=== PATIENT | male | born 1945 | race Caucasian/White ===

== ENCOUNTER → 2018-04-25 10:49 | Outpatient (CLI) | payer MEDICARE, OTHER, SELFPAY ==
--- NOTE | 2018-04-25 10:55 | RAD_ITS ---
STUDY: X-RAY - ABDOMEN/PELVIS REASON FOR EXAM: Male, 72 years old. Frequent urination TECHNIQUE: AP supine and upright views of the abdomen and pelvis. COMPARISON: None. FINDINGS: Normal visualized lung bases. There is a moderate amount of colonic fecal material. There is no demonstrated free abdominal air. The visualized liver, spleen and kidneys are grossly normal in size and morphology. Normal soft tissue structures. There are diffuse degenerative changes of the visualized lumbar spine. RAD/Abdomen Single View IMPRESSION: No acute findings, constipation Electronically Signed: Jonathan Philip MD at 12:09 EDT , Service support ,
== END ==
PROVIDERS: Family Provider Nurse Practitioner; PCP Nurse Practitioner; Visit Provider Nurse Practitioner
DX: K59.00 Constipation, unspecified (principal); R35.0 Frequency of micturition
CPT/HCPCS: 74018

== ENCOUNTER → 2018-05-02 13:24 | Outpatient (CLI) | payer MEDICARE, OTHER, SELFPAY ==
--- NOTE | 2018-05-02 13:27 | US_ITS ---
STUDY: SCROTUM ULTRASOUND REASON FOR EXAM: Male, 72 years old. Hydrocele. TECHNIQUE: Ultrasound evaluation of the scrotum was performed with color Doppler and static mayers-scale imaging. COMPARISON: Testicular ultrasound dated April 23, 2017. FINDINGS: RIGHT TESTICLE INTRATESTICULAR: There is a normal size of the right testicle. The right testicle measures 4.7 x 1.9 x 2.6 cm. There is a homogenous echotexture. There is normal arterial and normal venous vascularity. There is a intratesticular cyst which appears anechoic and well-circumscribed. This cyst measures 7.3 x 5.5 x 7.4 mm. EXTRATESTICULAR: The epididymis is normal in size. The epididymis head measures 12 x 7 x 7.6 mm. There is normal vascularity of the epididymis. There is a well-defined cystic structure within the epididymis, without internal echoes, consistent with an epididymal cyst. There is no demonstrated hydrocele. There is no demonstrated varicocele. There is no demonstrated extratesticular mass or cyst. LEFT TESTICLE INTRATESTICULAR: There is a normal size of the left testicle. The left testicle measures 4.3 x 2.0 x 3.0 cm. There is a homogenous echotexture. There is normal arterial and normal venous vascularity. There is no demonstrated left testicular mass or cyst. EXTRATESTICULAR: The epididymis is normal in size. The epididymis head measures 1.0 x 1.2 x 1.2 cm. There is normal vascularity of the epididymis. There is a well-defined cystic structure within the epididymis, without internal echoes, consistent with an epididymal cyst. There is a small hydrocele, some of which appears loculated. There is no demonstrated varicocele. There is no demonstrated extratesticular mass or cyst. US/Testicular with Arterial Flow IMPRESSION: 1. Unchanged appearance to right-sided intratesticular cyst. 2. Small bilateral epididymal cysts on the right with larger epididymal cyst on the left, similar to previous study. 3. Small left-sided hydrocele, possibly partially loculated. Electronically Signed: Anusha Maza MD at 11:17 EDT , Service support ,
== END ==
PROVIDERS: Family Provider Nurse Practitioner; PCP Nurse Practitioner; Visit Provider Nurse Practitioner
DX: N43.2 Other hydrocele (principal); N44.2 Benign cyst of testis; N50.3 Cyst of epididymis; R35.0 Frequency of micturition
CPT/HCPCS: 76870; 93976

== ENCOUNTER → 2019-07-27 | Outpatient (CLI) | payer MEDICARE, OTHER, SELFPAY ==
[2019-07-27 14:18] LABS: PSA,Total- Diagnostic < 0.01 ng/mL (0.0-4.0)
== END | disposition home or self-care (01) ==
LOC: MTLAB 11:46
PROVIDERS: Family Provider Nurse Practitioner; PCP Nurse Practitioner
DX: C61 Malignant neoplasm of prostate (principal)
CPT/HCPCS: 36415; 84153

== ENCOUNTER 2021-12-06 13:09 | Outpatient (CLI) | payer MEDICARE, OTHER, SELFPAY | END 2021-12-06 23:59 | disposition home or self-care (01) | PROVIDERS: PCP Nurse Practitioner; Referring Provider Nurse Practitioner; Visit Provider Nurse Practitioner | DX: R00.2 Palpitations (principal) | CPT/HCPCS: 93225; 93226 ==

== ENCOUNTER → 2022-01-22 | Outpatient (CLI) | payer MEDICARE, OTHER, SELFPAY ==
--- NOTE | 2022-01-22 13:26 | BI_ITS ---
MAMMOGRAPHY - BILATERAL DIAGNOSTIC REASON FOR EXAM: Male, 76 years old. PAIN PERTINENT HISTORY: Non-contributory. TECHNIQUE: Digital examination. Mediolateral oblique (MLO) and craniocaudad (CC) views of both breasts were obtained. CAD: CAD was performed on this study. COMPARISON: None. FINDINGS: Breast Composition: The breasts are almost entirely fatty. There are no dominant masses or suspicious calcifications. No other significant abnormalities are identified. BI/DIAG MAMM W/CAD, BILAT IMPRESSION: Stable bilateral diagnostic mammogram. ASSESSMENT CATEGORY: BIRADS Category 1: Negative. A letter regarding these results will be sent to the patient by the facility within 30 days. FOLLOW UP RECOMMENDATION: Yearly follow up mammogram recommended. (A) Approximately 10% of breast cancers are not detected by mammography. A normal mammogram should not delay biopsy of a clinically suspicious abnormality. Electronically Signed: Abraham Jaimes MD at 13:57 EDT ,
== END | disposition home or self-care (01) ==
LOC: OPBI 13:21
PROVIDERS: PCP Nurse Practitioner; Referring Provider Nurse Practitioner; Visit Provider Nurse Practitioner
DX: N64.4 Mastodynia (principal)
CPT/HCPCS: 77062; 77066; G0279

== ENCOUNTER 2022-08-09 05:09 | Observation (INO) | payer MEDICARE, OTHER, SELFPAY ==
[2022-08-09] VITALS (16 sets, daily range): BP systolic 124–195; BP diastolic 85–103; PULSE 68–76; RESP 11–17; TEMP 36.6–36.8; O2SAT 96–100; BMI 27.3; BMI 26.2
--- NOTE | 2022-08-09 05:24 | CT_ITS ---
EXAM: CT HEAD WITHOUT INTRAVENOUS CONTRAST CLINICAL INDICATION: Neuro deficit, acute, stroke suspected Neuro deficit, acute, stroke suspected TECHNIQUE: Multiple axial images were obtained of the head without intravenous contrast. This CT exam was performed using one or more of the following dose reduction techniques: automated exposure control, adjustment of the mA and/or kV according to patient size, and/or use of iterative reconstruction technique. This report was created using [employer] report generation technology. COMPARISON: None. FINDINGS: BRAIN AND EXTRA-AXIAL SPACES: There are microvascular changes in supratentorial white matter. No intra- or extra-axial hemorrhage. No evidence of acute infarct. No intracranial mass or mass effect. There is preservation of the mayers/white matter interface. Posterior fossa structures are unremarkable. Ventricles are appropriate for age. No hydrocephalus. Basal cisterns are patent. BONES/JOINTS: Unremarkable. No discrete lytic or blastic abnormalities. VASCULATURE: There is atherosclerotic calcification of the vertebral and cavernous carotid arteries. SINUSES: Unremarkable as visualized. Clear. MASTOID AIR CELLS: Unremarkable. Clear. ORBITS: Visualized globes, extraocular muscles, optic nerves and retrobulbar fat appear unremarkable. ASPECTS score: 10. CT/STROKE Brain/Head without Cont IMPRESSION: 1. Mild chronic involutional changes of the brain. 2. No demonstrated acute intracranial process. N.B. : The above Results were Read Back by Jomar Rosenthal MD to Dr. Cornell Alejandra DO, and understanding confirmed on 08/09/2022 05:52:36 (ET). Electronically Signed: Jomar Rosenthal MD at 5:56 EST Reading Location ID and State: [facility] / [place] , Service support ,
--- NOTE | 2022-08-09 05:24 | EKG12_ITS ---
Test Reason : NEURO SYMPTOMS Blood Pressure : / mmHG Vent. Rate : 070 BPM Atrial Rate : 070 BPM P-R Int : 168 ms QRS Dur : 098 ms QT Int : 422 ms P-R-T Axes : 020 -17 000 degrees QTc Int : 455 ms Normal sinus rhythm Normal ECG Confirmed by ONEAL AGUSTIN, RAFA ([id number]), online editor ROSAURA GRUBBS ([id number]) on 08/14/2022 9:34:06 A M Referred By: FITZ Confirmed By:JAZ NO MD
--- NOTE | 2022-08-09 05:26 | EDS_ITS ---
HPI History of Present Illness Chief Complaint: Neuro S/Sx Narrative Narrative: 77-year-old male presenting with concern for strokelike symptoms. He states that at 430 he felt like he was having left-sided facial numbness, left arm numbness, left leg numbness. He states he was able to move these without difficulty. He reports several minutes of not being able to call out to his . He also states that the areas of numbness also had pain and felt needlelike. He states that these symptoms lasted for between 5 to 10 minutes and resolved and had not come back. Patient has no history of stroke. He does have history of Parkinson's disease. History of hypertension, hyperlipidemia. Patient also has a history of dementia. He has MARGARITA and is on CPAP at night. He states he had a cardiac ablation in the past but he is not sure what for. He is not on any anticoagulation except for daily aspirin. [facility] Medical History (Updated 08/09/22 @ 06:[address] Brisa Jin MD) Atrial fibrillation Dementia History of prostate cancer HLD (hyperlipidemia) HTN (hypertension) Parkinson disease Sleep apnea Home Medications aspirin 81 mg tablet,delayed release (Kelly Low Dose Aspirin) 80 mg PO DAILY 08/09/22 [History Last Taken Unknown] carbidopa 25 mg-levodopa 250 mg tablet 1 tab PO TID 08/09/22 [History Last Taken Unknown] furosemide 20 mg tablet 20 mg PO DAILY 08/09/22 [History Last Taken Unknown] losartan 50 mg tablet 50 mg PO DAILY 08/09/22 [History Last Taken Unknown] memantine 10 mg tablet 10 mg PO BID 08/09/22 [History Last Taken Unknown] milk thistle 500 mg capsule 375 mg PO DAILY 08/09/22 [History Last Taken Unknown] multivitamin 1 tab PO DAILY 08/09/22 [History Last Taken Unknown] potassium chloride 20 mEq tablet,extended release 20 meq PO DAILY 08/09/22 [History Last Taken Unknown] simvastatin 20 mg tablet 20 mg PO DAILY 08/09/22 [History Last Taken Unknown] Allergy/AdvReac Type Severity Reaction Status Date / Time No Known Allergies Allergy Verified 08/09/22 05:27 Family History (Updated 08/09/22 @ 06:[address] Brisa Jin MD) Mother Alzheimer disease Surgical History (Updated 08/09/22 @ 06:[address] Brisa Jin MD) H/O cardiac radiofrequency ablation H/O prostatectomy History of ankle surgery History of arthroscopy of both knees History of inguinal hernia repair History of tonsillectomy and adenoidectomy Social History (Updated 08/09/22 @ 06:[address] Brisa Jin MD) household members: spouse Smoking Status: Never smoker alcohol intake: current alcohol intake frequency: a few times a week substance use type: does not use ROS ROS ED Constitutional Constitutional ED: Denies chills or fever(s) Eyes Eyes: Denies change in vision or diplopia ENT ENT ED: Reports other Details: Left jaw pain ; Denies rhinorrhea or sore throat Cardiovascular Cardiovascular: Reports chest pain Respiratory/Chest Respiratory/Chest: Denies cough or dyspnea Genitourinary Genitourinary ED: Denies dysuria Musculoskeletal Musculoskeletal: Denies arthralgias or back pain Integumentary Denies abscess or Abrasions Neurologic Neurologic: Reports paresthesias LUE and LLE Psychiatric Psychiatric: Denies anxiety or depression EXAM Physical Exam Const Vital Signs: 08/09/22 05:11 08/09/22 05:24 08/09/22 05:24 Temperature 97.8 F Temperature Source Temporal Pulse Rate 75 76 Respiratory Rate 17 17 Blood Pressure 194/99 H 187/103 H Blood Pressure Mean 130 131 Pulse Ox 98 99 Oxygen Delivery Method Room Air Room Air Room Air 08/09/22 05:54 Temperature Temperature Source Pulse Rate 71 Respiratory Rate 13 Blood Pressure 163/87 H Blood Pressure Mean 112 Pulse Ox 97 Oxygen Delivery Method Room Air Positive well nourished General Appearance ED: NAD HEENT Reports moist mucous membranes Eyes PERRL and EOMs intact bilaterally Neck no lymphadenopathy Chest Wall inspection of chest normal Resp normal respiratory effort and clear to auscultation bilaterally Effort and Inspection: Negative for retractions Auscultation: Negative for rales, rhonchi or wheezes Cardio Rate: regular rate Rhythm: regular rhythm GI normal to inspection, nondistended, normoactive bowel sounds Neuro oriented x3 and CN's II-XII intact bilaterally Sensorium / Orientation: alert Speech: speech normal Motor Exam: strength 5/5 throughout Psych mental status grossly normal Skin no wounds NIHSS NIHSS Initial: 1a Level of Consciousness: 0 1b LOC Questions (Score 2 if aphasic/stupor): 0 1c LOC Commands (Only score 1st attempt): 0 2 Best Gaze (If aphasic, use reflexive mvmts.): 0 3 Visual: 0 4 Facial Palsy: 0 5 Motor Arm Right (UN = amputation/fusion): 0 5 Motor Arm Left: 0 6 Motor Leg Right: 0 6 Motor Leg Left: 0 7 Limb ataxia (Only + if out of proportion): 0 8 Sensory (Aphasia/stupor=0 or 1, coma=2): 0 9 Best Language: 0 10 Dysarthria (mute, coma=2, intubated=UN): 0 11 Extinction and Inattention (only scored if +): 0 Total Score: 0 MDM MDM MDM Narrative Medical decision making narrative: Patient presenting just under an hour after he had symptoms of inability to speak for several minutes. He also had numbness and tingling the left arm, left face, left leg. He states he was able to move his arm and leg during this time. He reports he was unable to call out to his . No history of stroke. He states he has a history of cardiac ablation. I presume this is from history of A. fib. He was on Coumadin in the past but is no longer anticoagulated. His initial exam he has an NIH of 0. He is awake and alert and moving all 4 extremities. No facial droop. No slurred speech. Slightly hypertensive but otherwise his vitals are stable. CBC essentially normal. Coagulation studies are also normal. Renal function electrolytes unremarkable. High-sensitivity troponin is 10. EKG was obtained and is normal sinus rhythm at a rate of 70 bpm without sign of ischemic change or dysrhythmia mitral rotation. Chest x-ray shows no acute cardiopulmonary process on my interpretation. CT of the brain was ordered due to symptoms of TIA and this is interpreted as negative by the radiologist. I think the patient would benefit from inpatient care given that he had a TIA. I spoke with hospitalist and the patient will be admitted. Impression: 1. TIA 2. History of dementia Lab Data Attestation: I reviewed the patient's lab results. Labs: Laboratory Results - last 24 hr 08/09/22 08/09/22 08/09/22 05:25 05:25 05:25 WBC 5.5 RBC 4.57 L Hgb 13.7 Hct 44.3 MCV 96.9 H MCH 30.0 MCHC 30.9 L RDW Std Deviation 49.1 H RDW Coeff of Jessica 13.6 Plt Count 184 MPV 10.3 Immature Gran % (Auto) 0.400 Neut % (Auto) 55.9 Lymph % (Auto) 30.0 Teller % (Auto) 9.9 Eos % (Auto) 2.9 Baso % (Auto) 0.9 Absolute Neuts (auto) 3.1 Absolute Lymphs (auto) 1.66 Nucleated RBC % 0 PT 14.2 INR 1.1 APTT 29.2 Sodium 141 Potassium 4.3 Chloride 106 Carbon Dioxide 31.0 Anion Gap 4 L BUN 22 H Creatinine 1.04 Estim Creat Clear Calc 57.55 Est GFR (MDRD) Af Amer 89 Est GFR (MDRD) Non-Af 74 BUN/Creatinine Ratio 21.2 H Glucose 105 Calcium 8.8 Magnesium Troponin I High Sens 10 POC Glucose 08/09/22 08/09/22 05:25 05:33 WBC RBC Hgb Hct MCV MCH MCHC RDW Std Deviation RDW Coeff of Jessica Plt Count MPV Immature Gran % (Auto) Neut % (Auto) Lymph % (Auto) Teller % (Auto) Eos % (Auto) Baso % (Auto) Absolute Neuts (auto) Absolute Lymphs (auto) Nucleated RBC % PT INR APTT Sodium Potassium Chloride Carbon Dioxide Anion Gap BUN Creatinine Estim Creat Clear Calc Est GFR (MDRD) Af Amer Est GFR (MDRD) Non-Af BUN/Creatinine Ratio Glucose Calcium Magnesium 2.2 Troponin I High Sens POC Glucose 80 Radiography Diagnostic Testing: Clinical Impression(s) from Imaging Studies Brain CT 08/09/22 05:24 IMPRESSION: 1. Mild chronic involutional changes of the brain. 2. No demonstrated acute intracranial process. N.B. : The above Results were Read Back by Jomar Rosenthal MD to Dr. Cornell Alejandra DO, and understanding confirmed on 08/09/2022 05:52:36 (ET). Electronically Signed: Jomar Rosenthal MD at 5:56 EST , ADDENDUM: 08/09/22 0603 IMPRESSION: 1. Mild chronic involutional changes of the brain. 2. No demonstrated acute intracranial process. N.B. : The above Results were Read Back by Jomar Rosenthal MD to Dr. Cornell Alejandra DO, and understanding confirmed on 08/09/2022 05:52:36 (ET). Electronically Signed: Jomar Rosenthal MD at 5:56 EST , Chest X-Ray 08/09/22 05:45 IMPRESSION: No acute findings in the chest. Electronically Signed: Jomar Rosenthal MD at 6:09 EST , Discharge Plan Triage Chief Complaint: Neuro S/Sx ED Provider: Cornell Alejandra Dx/Rx/DC Orders Primary Care Provider: Lydia Gibbons
[2022-08-09 05:40] LABS: Absolute Lymphocyte Count 1.66 X10^3/uL (0.83-4.51); Absolute Neutrophil Count 3.1 X10^3/uL (2.0-7.7); Basophil# 0.05 X10^3/uL; Basophil% 0.9 % (0-1); Eosinophil# 0.16 X10^3/uL; Eosinophils% 2.9 % (0-5); Hematocrit 44.3 % (40-54); Hemoglobin 13.7 g/dL (13.0-16.5); Lymphocyte # 1.66 X10^3/ul (0.83-4.51); Mean Corp Hgb Conc 30.9 g/dL (32-36); Mean Corpuscular Volume 96.9 fL (80-94); Mean Platelet Vol. 10.3 fl (6.2-12.0); Monocyte# 0.55 X10^3/uL; Monocyte% 9.9 % (0-10); NRBC Flagged by Analyzer 0 % (0-5); Neutrophil % 55.9 % (47-70); Platelet Count 184 K/mm3 (150-450); RBC Distribution Width CV 13.6 % (11.6-14.6); RBC Distribution Width SD 49.1 fl (35.1-43.9); Red Blood Count 4.57 M/mm3 (4.6-6.2); White Blood Count 5.5 K/mm3 (4.4-11.0)
--- NOTE | 2022-08-09 05:45 | RAD_ITS ---
EXAM: XR CHEST, 1 VIEW CLINICAL INDICATION: Neuro deficit, acute, stroke suspected Neuro deficit, acute, stroke suspected TECHNIQUE: Frontal view of the chest. This report was created using [employer] report generation technology. COMPARISON: 04/21/2013. FINDINGS: LUNGS AND PLEURAL SPACES: Unremarkable. No consolidation or edema. No pneumothorax. No effusion. HEART: Unremarkable. Cardiac silhouette not enlarged. MEDIASTINUM: Central airways and mediastinal contour are unremarkable. BONES/JOINTS: There are multilevel degenerative changes in the visualized spine. SOFT TISSUES: Unremarkable. RAD/Chest 1 View IMPRESSION: No acute findings in the chest. Electronically Signed: Jomar Rosenthal MD at 6:09 EST Reading Location ID and State: [facility] / [place] , Service support ,
[2022-08-09 05:51] LABS: Bedside Glucose 80 mg/dL (74-106)
[2022-08-09 06:05] LABS: International Normalized Ratio 1.1; Prothrombin Time (Protime)PT. 14.2 SECONDS (11.7-14.9)
[2022-08-09 06:06] LABS: Partial Thromboplast Time 29.2 Seconds (24.1-36.2)
[2022-08-09 06:08] LABS: Anion Gap 4 (5-15); BUN 22 mg/dL (7-18); BUN/Creat Ratio 21.2 RATIO (10-20); Calcium,Total 8.8 mg/dL (8.5-10.1); Chloride 106 mmol/L (98-107); Creatinine, Serum 1.04 mg/dL (0.70-1.30); EST Glomerular Filtration Rate 74 mL/min (>60); Est Glom Filt Rate - Afr Amer 89 mL/min (>60); Estimated Creatinine Clearance 57.55 ml/min; Glucose 105 mg/dL (74-106); Potassium 4.3 mmol/L (3.5-5.1); Sodium Level 141 mmol/L (136-145); Troponin-I HS 10 pg/mL (3.0-78.0)
--- NOTE | 2022-08-09 06:10 | PCM.HP.STD ---
HPI - General General Date of Admission: 08/09/22 Date of Service: 08/09/22 Chief Complaint: Transient paresthesias L side, aphasia HPI Narrative The patient is a 77 y/o M w/ PMHx: Hx Prostate CA, Parkison's disease with associated Dementia with unclear behavioral disturbance history, PAF s/p RFA, HTN, HLD, MARGARITA who presents to the [facility] ED on 08/09/22 with history of onset left-sided paresthesias including left facial, left upper extremity and left lower extremity at approximately starting at 4:15 AM with significant aphasia with difficulty speaking taking him some time to wake up his prompting ED transition however upon ED transition he notes improvement but still has ongoing left-sided weakness. He describes the left-sided paresthesias as needlelike painful sensations. This lasted for approximately 5 to 10 minutes and resolved with no recurrent symptoms. He does additionally report worsening dizziness over the last several days with increased postnasal drip and congestion. Patient is vaccinated against COVID. In the ED NIHSS 0. Work-up in the ED included T97.8, heart rate 75, BP 194/99, respiratory rate 17, 98% on room air, CBC with WC 5.5, hemoglobin 13.7, platelet 194 without marked shift, coags unremarkable, BMP not marked appearing aside mildly elevated BUN 22/creatinine 104, troponin 10, CT head with mild chronic involutional changes with no acute intracranial process, CXR with no acute cardiopulmonary findings, EKG with SR without acute evidence of ischemia. [facility] [place] Medical History (Updated 08/09/22 @ 06:[address] Brisa Jin MD) Atrial fibrillation Dementia History of prostate cancer HLD (hyperlipidemia) HTN (hypertension) Parkinson disease Sleep apnea Home Medications aspirin 81 mg tablet,delayed release (Kelly Low Dose Aspirin) 80 mg PO DAILY 08/09/22 [History Last Taken Unknown] carbidopa 25 mg-levodopa 250 mg tablet 1 tab PO TID 08/09/22 [History Last Taken Unknown] furosemide 20 mg tablet 20 mg PO DAILY 08/09/22 [History Last Taken Unknown] losartan 50 mg tablet 50 mg PO DAILY 08/09/22 [History Last Taken Unknown] memantine 10 mg tablet 10 mg PO BID 08/09/22 [History Last Taken Unknown] milk thistle 500 mg capsule 375 mg PO DAILY 08/09/22 [History Last Taken Unknown] multivitamin 1 tab PO DAILY 08/09/22 [History Last Taken Unknown] potassium chloride 20 mEq tablet,extended release 20 meq PO DAILY 08/09/22 [History Last Taken Unknown] simvastatin 20 mg tablet 20 mg PO DAILY 08/09/22 [History Last Taken Unknown] Allergy/AdvReac Type Severity Reaction Status Date / Time No Known Allergies Allergy Verified 08/09/22 05:27 Family History (Updated 08/09/22 @ 06:[address] Brisa Jin MD) Mother Alzheimer disease Family History other other (Denies any marked paternal family history including DM, CA, HD.) Surgical History (Updated 08/09/22 @ 06:[address] Brisa Jin MD) H/O cardiac radiofrequency ablation H/O prostatectomy History of ankle surgery History of arthroscopy of both knees History of inguinal hernia repair History of tonsillectomy and adenoidectomy Social History (Updated 08/09/22 @ 06:[address] Brisa Jin MD) household members: spouse Smoking Status: Never smoker alcohol intake: current alcohol intake frequency: a few times a week substance use type: does not use ROS ROS Narrative Admission Review of Systems: CONSTITUTIONAL: No weight loss, fever, chills, + weakness or fatigue. HEENT: Eyes: No visual loss, blurred vision, double vision or yellow sclerae. Ears, Nose, Throat: No hearing loss, sneezing, congestion, runny nose or sore throat. SKIN: No rash or itching, lesions, wounds. CARDIOVASCULAR: + Dizziness. No chest pain, chest pressure or chest discomfort, palpitations, edema, orthopnea, syncopal events. RESPIRATORY: No shortness of breath, cough or sputum, wheezing, hemoptysis. GASTROINTESTINAL: No anorexia, nausea, vomiting or diarrhea, abdominal pain, melena, BRBPR. GENITOURINARY: No dysuria, frequency, urgency or retention. NEUROLOGICAL: + Aphasia, L paresthesias, underlying Parkinson's disease w/ tremors/gait disturbance, underlying concurrent dementia. No headache, dizziness, syncope, paralysis, ataxia, no focal weakness, change in bowel or bladder control, seizure. MUSCULOSKELETAL: + muscle, back pain, joint pain or stiffness. HEMATOLOGIC: No anemia, bleeding or bruising. LYMPHATICS: No enlarged nodes. No history of splenectomy. PSYCHIATRIC: No history of depression or anxiety. ENDOCRINOLOGIC: No reports of sweating, cold or heat intolerance. No polyuria or polydipsia. ALLERGIES: No history of asthma, hives, eczema or rhinitis. Vital Signs Vital Signs Vital Signs: 08/09/22 05:11 08/09/22 05:24 08/09/22 05:24 Temperature 97.8 F Temperature Source Temporal Pulse Rate 75 76 Respiratory Rate 17 17 Blood Pressure 194/99 H 187/103 H Blood Pressure Mean 130 131 Pulse Ox 98 99 Oxygen Delivery Method Room Air Room Air Room Air Weight Weight: 179 lb 7.3 oz Body Mass Index (BMI) 27.3 Physical Exam Narrative Physical Examination: General: Awake, alert, oriented x 3 and cooperative, seated upright in the ED bed, fatigued, continued complete resolution of prior neurological symptoms Skin: Normal color, normal turgor, no icterus, no cyanosis except occasional staged ecchymoses. HEENT: AT/NC, EOMI, PERRLA, mildly dry MM, no carotid bruits or JVD noted. Lungs: Mildly diminished, greater bases, poor effort, no rales, ronchi or wheezing. Heart: Regular rate and rhythm; no gallop, rub audible. Abdomen: Soft, NTTP, ND, distant normal BS, no HSM. Extremities: No cyanosis, no clubbing, bilateral ankle to distal chandra not markedly pitting edema. Neurological: Patient awake, alert, oriented as noted, cognitive function improved, appears baseline intact although patient does of note have underlying dementia associated with Parkinson's disease; pupils equally reactive to light and accommodation, cranial nerves II-XII grossly normal, moving all 4 extremities, no focal deficits, ongoing upper extremity chronic bilateral tremors present with underlying Parkinson's disease, finger-nose and [id number] appropriate despite tremor, negative Babinski, sensation currently intact, strength moderately global decrease secondary to underlying comorbidities but no focal deficit. Psychiatric: Affect appears fatigued otherwise normal, no acute evidence of depressive or anxiety feelings. Results Lab / Micro Data Result Diagrams: 08/09/22 05:25 08/09/22 05:25 Labs: Laboratory Results - last 24 hr 08/09/22 05:25: WBC 5.5, RBC 4.57 L, Hgb 13.7, Hct 44.3, MCV 96.9 H, MCH 30.0, MCHC 30.9 L, RDW Std Deviation 49.1 H, RDW Coeff of Jessica 13.6, Plt Count 184, MPV 10.3, Immature Gran % (Auto) 0.400, Neut % (Auto) 55.9, Lymph % (Auto) 30.0, [place] % (Auto) 9.9, Eos % (Auto) 2.9, Baso % (Auto) 0.9, Absolute Neuts (auto) 3.1, Absolute Lymphs (auto) 1.66, Nucleated RBC % 0 08/09/22 05:25: PT 14.2, INR 1.1, APTT 29.2 08/09/22 05:25: Sodium 141, Potassium 4.3, Chloride 106, Carbon Dioxide 31.0, Anion Gap 4 L, BUN 22 H, Creatinine 1.04, Estim Creat Clear Calc 57.55, Est GFR (MDRD) Af Amer 89, Est GFR (MDRD) Non-Af 74, BUN/Creatinine Ratio 21.2 H, Glucose 105, Calcium 8.8, Troponin I High Sens 10 08/09/22 05:33: POC Glucose [address] 08/09/22 05:24 IMPRESSION: 1. Mild chronic involutional changes of the brain. 2. No demonstrated acute intracranial process. N.B. : The above Results were Read Back by Jomar Rosenthal MD to Dr. Cornell Alejandra DO, and understanding confirmed on 08/09/2022 05:52:36 (ET). Electronically Signed: Jomar Rosenthal MD at 5:56 EST , ADDENDUM: 08/09/22 0603 IMPRESSION: 1. Mild chronic involutional changes of the brain. 2. No demonstrated acute intracranial process. N.B. : The above Results were Read Back by Jomar Rosenthal MD to Dr. Cornell Alejandra DO, and understanding confirmed on 08/09/2022 05:52:36 (ET). Electronically Signed: Jomar Rosenthal MD at 5:56 EST , Chest X-Ray 08/09/22 05:45 IMPRESSION: No acute findings in the chest. Electronically Signed: Jomar Rosenthal MD at 6:09 EST Reading Location ID and State: [facility] / [place] , Service support , Assessment & Plan Assessment/Plan (1) TIA (transient ischemic attack): PLAN: Plan The patient is a 77 y/o M w/ PMHx: Hx Prostate CA,Parkison's disease with associated Dementia with unclear behavioral disturbance history, PAF s/p RFA, HTN, HLD, MARGARITA who presents to the [facility] ED on 08/09/22 with history of onset left-sided paresthesias including left facial, left upper extremity and left lower extremity at approximately starting at 4:15 AM with significant aphasia with difficulty speaking taking him some time to wake up his prompting ED transition. #1. Left-sided paresthesias, aphasia concerning for TIA/CVA: Will admit to PCU, will obtain MRI Brain, will obtain CTA head and neck as well as ECHO, PT/OT/Speech/Nutrition evaluation per protocol. Will allow permissive HTN, maintain on asa, statin w/ AM FLP, fall and aspiration precautions, hemoglobin A1c, magnesium, TSH, FLP pending. Once imaging and further work-up has been obtained we will consider re-evaluation for neurology. Given concurrent incidental dizziness complaints as well as congestion will request COVID PCR and will obtain orthostatic vital signs to be cautious. #2. Parkinson's disease with associated dementia with unclear behavioral disturbance history: We will maintain on fall and aspiration precautions, continue patient home Sinemet regimen as well as memantine. #3. Hypertension: We will maintain permissive hypertension given acute presentation as noted #1, as needed agents per stroke protocol. #4. Hyperlipidemia: Continue home statin regimen. AM FLP. #5. PFA: Patient status post prior RFA, not on rate or rhythm agent nor anticoagulation but previously he was on coumadin. #6. MARGARITA: CPAP nightly. #7. History of prostate cancer: Status post prostatectomy, remote, considered in remission. #8. DVT prophylaxis: SCDs, Lovenox. #9. CODE status: Patient HCPOA is his who is present and living will is currently in place. Discussed CODE status at length including difference between FULL code, DNR-CCA and DNR-CC status. Following discussions about the differences in these status, requested Full Code but notes that once his dementia advances he will likely transition to DNR-CCA, no intubation at that time. Advanced Care Planning Face to Face Time: 16 minutes. Charges/Coding Visit Charges Inpatient E&M: 34463 Init Hosp L3 Procedures Hospitalists Procedures: 82402 Advncd Care Plan 30 Min
--- NOTE | 2022-08-09 06:15 | CT_ITS ---
We are attempting to reach an attending provider to discuss findings. An addendum with communication details will be sent when the communication is complete. EXAM: CT ANGIOGRAPHY HEAD AND NECK WITH INTRAVENOUS CONTRAST CLINICAL INDICATION: Neuro deficit, acute, stroke suspected Neuro deficit, acute, stroke suspected TECHNIQUE: [place]/head and neck CT angiography protocol performed with intravenous contrast. This CT exam was performed using one or more of the following dose reduction techniques: automated exposure control, adjustment of the mA and/or kV according to patient size, and/or use of iterative reconstruction technique. This report was created using [employer] report generation technology. MIP reconstructed images were created and reviewed. CONTRAST: IV 100mL Isovue-370 RADIATION DOSE: CTDIvol = 21.36 mGy, DLP = 653.93 mGy-cm COMPARISON: Noncontrast CT scan of the brain done today. FINDINGS: HEAD: RIGHT ANTERIOR CEREBRAL ARTERY: Unremarkable. No significant stenosis at the visualized segments. Anterior communicating artery is present. No aneurysm. RIGHT MIDDLE CEREBRAL ARTERY: Unremarkable. No significant stenosis at the visualized segments. No aneurysm. RIGHT POSTERIOR CEREBRAL ARTERY: Unremarkable. No occlusion or significant stenosis. No aneurysm. RIGHT INTRACRANIAL INTERNAL CAROTID ARTERY: Atherosclerotic calcification of the cavernous carotid artery. No significant stenosis. No dissection or occlusion. RIGHT INTRACRANIAL VERTEBRAL ARTERY: Unremarkable. No significant stenosis. No dissection or occlusion. LEFT ANTERIOR CEREBRAL ARTERY: Unremarkable. No significant stenosis at the visualized segments. No aneurysm. LEFT MIDDLE CEREBRAL ARTERY: Unremarkable. No significant stenosis at the visualized segments. No aneurysm. LEFT POSTERIOR CEREBRAL ARTERY: Hypoplastic P1 segment, on a developmental basis. The P2 segment is largely supplied by the left posterior communicating artery.. No occlusion or significant stenosis. No aneurysm. LEFT INTRACRANIAL INTERNAL CAROTID ARTERY: Atherosclerotic calcification of the cavernous carotid artery. No significant stenosis. No dissection or occlusion. LEFT INTRACRANIAL VERTEBRAL ARTERY: Relatively diminutive, on a development basis. This does not visibly supply the basilar artery.. No significant stenosis. No dissection or occlusion. BASILAR ARTERY: Unremarkable. No significant stenosis. No aneurysm. OTHER VASCULATURE: No vascular malformation. NECK: RIGHT COMMON CAROTID ARTERY: Unremarkable. No significant stenosis. No dissection or occlusion. RIGHT EXTRACRANIAL INTERNAL CAROTID ARTERY: Unremarkable. No significant stenosis. No dissection or occlusion. RIGHT EXTERNAL CAROTID ARTERY: Unremarkable. No occlusion. RIGHT EXTRACRANIAL VERTEBRAL ARTERY: Relatively diminutive, on a developmental basis. There is focal severe stenosis at the C1 level, however, given that this is a diminutive artery and primary intracranial supply is via the dominant left vertebral artery, the finding is of doubtful clinical significance. No dissection or occlusion. LEFT COMMON CAROTID ARTERY: Unremarkable. No significant stenosis. No dissection or occlusion. LEFT EXTRACRANIAL INTERNAL CAROTID ARTERY: Unremarkable. No significant stenosis. No dissection or occlusion. LEFT EXTERNAL CAROTID ARTERY: Unremarkable. No occlusion. LEFT EXTRACRANIAL VERTEBRAL ARTERY: Unremarkable. No significant stenosis. No dissection or occlusion. GREAT VESSELS OF AORTIC ARCH: Unremarkable as visualized. Normal anatomy, patent. LUNG APICES: Unremarkable as visualized. HEAD and NECK: BONES/JOINTS: Unremarkable. No discrete lytic or blastic abnormalities. SOFT TISSUES: Unremarkable. CAROTID STENOSIS REFERENCE USING NASCET CRITERIA: % ICA stenosis = (1 - narrowest ICA diameter/diameter of distal cervical ICA) x 100. Mild - <50% stenosis. Moderate - 50-69% stenosis. Severe - 70-94% stenosis. Near occlusion - 95-99% stenosis. Occluded - 100% stenosis. CT/STROKE CTA Head AND Neck W/Con IMPRESSION: 1. Relatively hypoplastic right vertebral artery, on a developmental basis. 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 2. Hypoplastic P1 segment of the left posterior cerebral artery. P2 segment is adequately supplied by posterior communicating artery. 3. No other evidence for hemodynamically significant arterial stenosis. No demonstrated large vessel occlusion, dissection, or aneurysm. Electronically Signed: Jomar Rosenthal MD at 7:09 EST ,
[2022-08-09 07:01] LABS: Magnesium 2.2 mg/dL (1.6-2.6)
--- NOTE | 2022-08-09 07:52 | MRI_ITS ---
HISTORY: CVA. Left facial, arm and leg weakness/numbness. TECHNIQUE: Multiplanar and multisequence MR images of the brain were obtained without contrast. COMPARISON: CT same day. FINDINGS: BRAIN PARENCHYMA: Mild foci of small zones of increased T2 FLAIR signal in the bilateral cerebral white matter. No abnormal focus of restricted diffusion. No acute intracranial hemorrhage identified. CSF SPACES: Cerebral ventricles, cortical sulci, and other extra-axial CSF spaces within normal limits in size for age. No significant midline shift or other mass effect.No extra-axial fluid collection. VASCULAR SYSTEM: Major intracranial flow voids are maintained. PARANASAL SINUSES AND MASTOID AIR CELLS: No significant air fluid levels. ORBITS: Left lens resection. MRI/Brain without Contrast IMPRESSION: No evidence for acute infarct. Mild chronic small vessel ischemic gliosis. Electronically Signed: Aria Zurita MD at 10:42 EST ,
--- NOTE | 2022-08-09 07:52 | ECHOD_ITS ---
Reason For Study: TIA/CVA Procedure This was a 2D Doppler, Color Flow transthoracic echocardiogram. Bubble Study Performed. Exam performed portable in ICU/CCU. Left Ventricle Normal LV size. The estimated ejection fraction is 60 %. No evidence for diastolic dysfunction. No regional wall motion abnormalities noted. Right Ventricle Normal RV size. Normal systolic function. Atria The left atrium is mildly enlarged. Normal right atrium. No doppler evidence for ASD. Bubble contrast study negative for right to left interatrial shunt. Mitral Valve There is no mitral valve stenosis. Trivial mitral valve insufficiency. Tricuspid Valve There is no tricuspid stenosis. No tricuspid valve insufficiency. Unable to estimate RV systolic pressure due to insufficient tricuspid regurgitant envelope. Aortic Valve Trisinus/trileaflet aortic valve. There is no aortic stenosis. Trivial aortic valve insufficiency. Pulmonic Valve There is no pulmonic valvular stenosis. No pulmonic valve insufficiency. Great Vessels Normal aortic root. Pericardium/Pleural No pericardial effusion. Medication Performed a rapid injection of agitated mix of 9 cc saline and 1cc air to assess for atrial septal defect. MMode/2D Measurements & Calculations LVIDd: 4.9 cm IVSd: 1.4 cm Ao root diam: 3.6 cm LVIDs: 3.2 cm LVPWd: 1.3 cm LA dimension: 4.8 cm RVDd: 4.1 cm FS: 33.8 % LAV(MOD-bp): 62.5 ml LA A4 area: 19.0 cm2 RA A4 area: 17.3 cm2 LAV(MOD-bp) Indexed: 36.6 ml/m2 LAV(MOD-sp2): 66.2 ml LAV(MOD-sp4): 53.1 ml Time Measurements MV dec time: 0.16 sec Doppler Measurements & Calculations MV E max sven: 70.4 cm/sec Lat Peak E' Sven: 10.8 cm/sec Med Peak E' Sven: 7.3 cm/sec MV A max sven: 66.3 cm/sec E/E' lat: 6.5 E/E' med: 9.7 MV E/A: 1.1 MV V2 max: 81.0 cm/sec MV P1/2t max sven: 81.0 cm/sec Ao V2 max: 150.1 cm/sec MV max P.6 mmHg MV P1/2t: 55.9 msec Ao max P.0 mmHg MV V2 mean: 45.3 cm/sec MV dec slope: 424.6 cm/sec2 Ao V2 mean: 97.3 cm/sec MV mean P.93 mmHg Ao mean P.4 mmHg MV V2 VTI: 20.4 cm MVA(P1/2t): 3.9 cm2 Ao V2 VTI: 35.1 cm LV V1 max: 104.6 cm/sec PA V2 max: 94.0 cm/sec TR max sven: 301.7 cm/sec LV V1 max P.4 mmHg TR max P.4 mmHg LV V1 mean P.3 mmHg LV V1 mean: 70.8 cm/sec LV V1 VTI: 24.4 cm ECHO/Echo Complete Interpretation Summary The estimated ejection fraction is 60 %. No evidence for diastolic dysfunction. The left atrium is mildly enlarged. Ordering Physician: Brisa Jin Referring Physician: Lydia Gibbons Performed By: Kameron Boudreaux RCS
[2022-08-09] MEDS: Enoxaparin 40 MG/0.4 ML Syringe SC (08:46)
[2022-08-09] MEDS: 0.9% Normal Saline 1,000 ML 100 ML IV (08:46)
[2022-08-09] MEDS: Aspirin 81 MG TAB.CHEW PO (08:46)
[2022-08-09 09:03] LABS: Cholesterol 157 mg/dL (200); High Density Lipoprotein 64 mg/dL; Thyroid Stim Hormone (TSH) 3.43 uIU/mL (0.358-3.74); Triglycerides 81 mg/dL; Very Low Density Lipoprotein 16 mg/dL (5-40)
--- NOTE | 2022-08-09 09:16 | NURSING ---
Patient off unit to MRI
[2022-08-09 09:32] LABS: Hemoglobin A1c 5.7 % (3.8-5.6)
[2022-08-09] MEDS: Losartan Potassium 50 MG Tablet PO ×2 (12:23→15:26)
[2022-08-09] MEDS: Memantine Hydrochloride 10 MG Tablet PO (12:23)
--- NOTE | 2022-08-09 14:43 | DCINST_ITS ---
Discharge Instructions Diet Discharge Diet: Low fat / Low cholesterol and 2000 mg Sodium Diet Activity Discharge Activity: Return to Normal Activity Weight Bearing Status: Weight bearing as tolerated Follow Up Care Test Results: Test results from this visit will be discussed in further detail at your follow- up appointment, if applicable. Discharge Plan Admission Admit Date/Time: 08/09/22 06:10 Primary Reason for Your Visit: TIA Attending Provider: Concha Russell Primary Care Provider: Lydia Gibbons Consulting Providers: Brisa Jin Instructions Additional Instructions / Restrictions: Follow-up with your neurologist within 2 weeks. Take note of change to your Losartan Follow-up with your PCP within 1 week Discharge Orders/Prescriptions Prescriptions: New losartan 100 mg Tablet 100 mg PO DAILY 30 Days Qty: 30 0RF Continued multivitamin Tablet 1 tab PO DAILY carbidopa-levodopa 25-250 mg tablet 1 tab PO TID aspirin [Kelly Low Dose Aspirin] 81 mg Tablet,Delayed Release (Dr/Ec) 80 mg PO DAILY simvastatin 20 mg tablet 20 mg PO DAILY Label Comments: TAKE 1 TABLET BY MOUTH EVERY DAY furosemide 20 mg tablet 20 mg PO DAILY Label Comments: TAKE 1 TABLET BY MOUTH EVERY DAY memantine 10 mg tablet 10 mg PO BID Label Comments: TAKE 1 TABLET BY MOUTH TWICE A DAY Discontinued losartan 50 mg Tablet 50 mg PO DAILY milk thistle 500 mg Capsule 375 mg PO DAILY potassium chloride 20 mEq tablet extended release 20 meq PO DAILY Label Comments: TAKE 1 TABLET BY MOUTH EVERY DAY WHEN TAKING FUROSEMIDE Referrals / Follow Up: Lydia Gibbons, LICENSED PRACTICAL NURSE-C [Primary Care Provider] - Jessica Bain NP LICENSED PRACTICAL NURSE-C [Non-Staff] - Disposition Disposition (needs filled in before D/C Order can be placed): Home, Self Care
--- NOTE | 2022-08-09 14:57 | CASEMGMT ---
CHRISS ALDRICH in to discuss discharge planning. ST in room with patient and , recommending outpatient ST. Patient and unsure if they would like ST setup at this time. CHRISS ALDRICH encouraged patient and to consider outpatient therapy and discuss with PCP at follow-up appt. CHRISS ALDRICH educated and patient that PCP can assist with setup if they decide they would like ST. Patient and voiced understanding.
--- NOTE | 2022-08-09 15:45 | DS.PCM_ITS ---
Providers Date of Admission: 08/09/22 Date of Discharge: 08/09/22 Primary Care Physician: KEVIN Almanza Reason For Visit: TIA/CVA Diagnosis Discharge Diagnosis (1) TIA (transient ischemic attack): Status: Acute Code(s): G45.9 - Transient cerebral ischemic attack, unspecified Medications at Discharge Home Medications aspirin 81 mg tablet,delayed release (Kelly Low Dose Aspirin) 80 mg PO DAILY 08/09/22 carbidopa 25 mg-levodopa 250 mg tablet 1 tab PO TID 08/09/22 furosemide 20 mg tablet 20 mg PO DAILY 08/09/22 losartan 100 mg tablet 100 mg PO DAILY 30 days #30 tabs 08/09/22 memantine 10 mg tablet 10 mg PO BID 08/09/22 multivitamin 1 tab PO DAILY 08/09/22 simvastatin 20 mg tablet 20 mg PO DAILY 08/09/22 Hospital Course Operations None Procedures 2-D Echocardiogram Summary of Care Provided Minutes Spent on Discharge: 35 Hospital Course: 77-year-old male with past medical history of Parkinson's disease with associated dementia, paroxysmal atrial fibrillation, hypertension who comes in with acute onset of left-sided paresthesia of the left side of his body as well as difficulty speaking which started at 4:15 AM. This lasted for about 5 to 10 minutes and resolved with no recurrent symptoms. Patient also admitted to some dizziness. In the ED, his vitals were stable except for elevated blood pressure 194/99. His admitting blood work was unremarkable. CT of the brain showed mild chronic involutional changes. Patient was admitted to the progressive care unit and monitored on telemetry. He underwent MRI of the brain that was negative for any acute intracranial abnormality. There was no A. fib on telemetry. 2D echo shows EF of 60%. No valvular abnormality. His lipid profile showed triglycerides 81, total cholesterol 157, LDL 77, HDL 64. His losartan dose was increased to 50 mg daily to 100 mg daily. He will need to follow-up with his primary care doctor within 1 week. He was strongly advised to follow-up with his neurologist within 2 weeks. Physical Exam Narrative Physical exam: General: Alert, Oriented x3, Cooperative, flat facies HEENT: Atraumatic Oral: Moist Mucosa Neck: Supple Lungs: Clear to auscultation Cardiovascular: HS I+II, regular, no murmurs Abdomen: Bowel Sounds Present, Soft, Non Tender Extremities: No edema Skin: No rashes, No breakdown Neurological: Grossly intact Psych/Mental Status: Appropriate Weight / BMI Weight Weight: 78.199 kg Body Mass Index (BMI) 26.2 ABG / Lab / Microbiology Data Result Diagrams: 08/09/22 05:25 08/09/22 05:25 Laboratory: Laboratory Results - last 24 hr 08/09/22 05:25: WBC 5.5, RBC 4.57 L, Hgb 13.7, Hct 44.3, MCV 96.9 H, MCH 30.0, MCHC 30.9 L, RDW Std Deviation 49.1 H, RDW Coeff of Jessica 13.6, Plt Count 184, MPV 10.3, Immature Gran % (Auto) 0.400, Neut % (Auto) 55.9, Lymph % (Auto) 30.0, [place] % (Auto) 9.9, Eos % (Auto) 2.9, Baso % (Auto) 0.9, Absolute Neuts (auto) 3.1, Absolute Lymphs (auto) 1.66, Nucleated RBC % 0 08/09/22 05:25: PT 14.2, INR 1.1, APTT 29.2 08/09/22 05:25: Sodium 141, Potassium 4.3, Chloride 106, Carbon Dioxide 31.0, Anion Gap 4 L, BUN 22 H, Creatinine 1.04, Estim Creat Clear Calc 57.55, Est GFR (MDRD) Af Amer 89, Est GFR (MDRD) Non-Af 74, BUN/Creatinine Ratio 21.2 H, Glucose 105, Calcium 8.8, Troponin I High Sens 10 08/09/22 05:25: Magnesium 2.2 08/09/22 05:25: Triglycerides 81, Cholesterol 157, LDL Cholesterol 77, VLDL Cholesterol 16, HDL Cholesterol 64, TSH 3.43 08/09/22 05:25: Hemoglobin A1c 5.7 H 08/09/22 05:33: POC Glucose 80 08/09/22 08:05: COVID-19 (KORIN) Not Detected Radiography Diagnostic Testing: Radiology Impression Brain CT 08/09/22 05:24 IMPRESSION: 1. Mild chronic involutional changes of the brain. 2. No demonstrated acute intracranial process. N.B. : The above Results were Read Back by Jomar Rosenthal MD to Dr. Cornell Alejandra DO, and understanding confirmed on 08/09/2022 05:52:36 (ET). Electronically Signed: Jomar Rosenthal MD at 5:56 EST , ADDENDUM: 08/09/22 0603 IMPRESSION: 1. Mild chronic involutional changes of the brain. 2. No demonstrated acute intracranial process. N.B. : The above Results were Read Back by Jomar Rosenthal MD to Dr. Cornell Alejandra DO, and understanding confirmed on 08/09/2022 05:52:36 (ET). Electronically Signed: Jomar Rosenthal MD at 5:56 EST , Chest X-Ray 08/09/22 05:45 IMPRESSION: No acute findings in the chest. Electronically Signed: Jomar Rosenthal MD at 6:09 EST , Head/Neck CTA 08/09/22 06:15 IMPRESSION: 1. Relatively hypoplastic right vertebral artery, on a developmental basis. 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 2. Hypoplastic P1 segment of the left posterior cerebral artery. P2 segment is adequately supplied by posterior communicating artery. 3. No other evidence for hemodynamically significant arterial stenosis. No demonstrated large vessel occlusion, dissection, or aneurysm. Electronically Signed: Jomar Rosenthal MD at 7:09 EST , ADDENDUM: 08/09/22721 IMPRESSION: 1. Relatively hypoplastic right vertebral artery, on a developmental basis. 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 2. Hypoplastic P1 segment of the left posterior cerebral artery. P2 segment is adequately supplied by posterior communicating artery. 3. No other evidence for hemodynamically significant arterial stenosis. No demonstrated large vessel occlusion, dissection, or aneurysm. N.B. : The above Results were Read Back by Jomar Rosenthal MD to Dr. Yvonne MD, and understanding confirmed on 08/09/2022 07:15:58 (ET). Electronically Signed: Jomar Rosenthal MD at 7:09 EST , Brain MRI 08/09/22 07:52 IMPRESSION: No evidence for acute infarct. Mild chronic small vessel ischemic gliosis. Electronically Signed: Aria Zurita MD at 10:42 EST , Echocardiogram 08/09/22 07:52 Interpretation Summary The estimated ejection fraction is 60 %. No evidence for diastolic dysfunction. The left atrium is mildly enlarged. Ordering Physician: Brisa Jin Referring Physician: Lydia Gibbons Performed By: Kameron Boudreaux RCS D/C Instructions Discharge Diet: Low fat / Low cholesterol and 2000 mg Sodium Diet Weight Bearing Status: Weight bearing as tolerated Meaningful Use Info Meaningful Use Diagnoses (Choose all that apply): None applicable Discharge Plan Admission Admit Date/Time: 08/09/22 06:10 Primary Reason for Your Visit: TIA Attending Provider: Concha Russell Primary Care Provider: Lydia Gibbons Consulting Providers: Brisa Jin Instructions Additional Instructions / Restrictions: Follow-up with your neurologist within 2 weeks. Take note of change to your Losartan Follow-up with your PCP within 1 week Discharge Orders/Prescriptions Prescriptions: New losartan 100 mg Tablet 100 mg PO DAILY 30 Days Qty: 30 0RF Continued multivitamin Tablet 1 tab PO DAILY carbidopa-levodopa 25-250 mg tablet 1 tab PO TID aspirin [Kelly Low Dose Aspirin] 81 mg Tablet,Delayed Release (Dr/Ec) 80 mg PO DAILY simvastatin 20 mg tablet 20 mg PO DAILY Label Comments: TAKE 1 TABLET BY MOUTH EVERY DAY furosemide 20 mg tablet 20 mg PO DAILY Label Comments: TAKE 1 TABLET BY MOUTH EVERY DAY memantine 10 mg tablet 10 mg PO BID Label Comments: TAKE 1 TABLET BY MOUTH TWICE A DAY Discontinued losartan 50 mg Tablet 50 mg PO DAILY milk thistle 500 mg Capsule 375 mg PO DAILY potassium chloride 20 mEq tablet extended release 20 meq PO DAILY Label Comments: TAKE 1 TABLET BY MOUTH EVERY DAY WHEN TAKING FUROSEMIDE Referrals / Follow Up: Lydia Gibbons, [facility] [Primary Care Provider] - Jessica Bain NP, [employer] [Non-Staff] - Disposition Disposition (needs filled in before D/C Order can be placed): Home, Self Care Charges/Coding Visit Charges OBSV E&M: 27406 Observation care discharge
[2022-08-09] MEDS: Carbidopa/Levodopa 25/250 Tablet PO (15:57)
== END 2022-08-09 17:00 | disposition home or self-care (01) ==
LOC: ED 06:11 → ICU 06:33
PROVIDERS: Admitting Provider Family Medicine; Emergency Provider Student in an Organized Health Care Education/Training Program; PCP Nurse Practitioner Family; Visit Provider Internal Medicine
DX: G45.9 Transient cerebral ischemic attack, unspecified (principal); G20 Parkinson's disease; F02.80 Dementia in other diseases classified elsewhere, unspecified severity, without behavioral disturbance, psychotic disturbance, mood disturbance, and anxiety; I48.0 Paroxysmal atrial fibrillation; R47.01 Aphasia; G47.33 Obstructive sleep apnea (adult) (pediatric); R29.700 NIHSS score 0; E78.5 Hyperlipidemia, unspecified; Z79.82 Long term (current) use of aspirin; I10 Essential (primary) hypertension; Z79.899 Other long term (current) drug therapy
CPT/HCPCS: 70450; 70496; 70498; 70551; 71045; 80048; 80061; 82962; 83036; 83735; 84443; 84484; 85025; 85610; 85730; 87635; 92610; 93005; 93306; 96360; 96361; 96372; 97162; 97166; 97802; 99218; 99284; J7030; J7040; Q9967; A4216; G0378; U0003; U0005

== ENCOUNTER 2023-02-06 05:36 | Emergency (ER) | payer MEDICARE, OTHER, SELFPAY ==
[2023-02-06 05:37] VITALS: BP 197/101; PULSE 84; RESP 14; TEMP 36.6; O2SAT 94; BMI 25.9
--- NOTE | 2023-02-06 05:50 | EKG12_ITS ---
Test Reason : CP Blood Pressure : / mmHG Vent. Rate : 076 BPM Atrial Rate : 076 BPM P-R Int : 196 ms QRS Dur : 102 ms QT Int : 398 ms P-R-T Axes : -05 -27 003 degrees QTc Int : 447 ms Normal sinus rhythm Normal ECG Confirmed by ONEAL AGUSTIN, RAFA ([id number]), editor managing newspaper [employer] ([id number]) on 02/06/2023 1:01:41 PM Referred By: JUSTIN Confirmed By:JAZ NO MD
--- NOTE | 2023-02-06 06:09 | RAD_ITS ---
INDICATION: chest pain EXAMINATION/TECHNIQUE: X-RAY - XR Chest 1 View COMPARISON: FINDINGS: LINES/DEVICES: None. LUNGS: No consolidation, edema or effusion. No pneumothorax. MEDIASTINUM AND CARDIOVASCULAR STRUCTURES: Cardiac silhouette not enlarged. Central airways and mediastinal contour are unremarkable. BONES AND SOFT TISSUES: Unremarkable. RAD/Chest 1 View (Portable) IMPRESSION: No radiographic evidence of acute cardiopulmonary disease. Electronically Signed: Lorena Acosta MD at 6:50 EDT ,
[2023-02-06 06:24] LABS: Absolute Lymphocyte Count 1.53 X10^3/uL (0.83-4.51); Absolute Neutrophil Count 3.9 X10^3/uL (2.0-7.7); Basophil# 0.06 X10^3/uL; Basophil% 0.9 % (0-1); Eosinophil# 0.34 X10^3/uL; Eosinophils% 5.2 % (0-5); Hemoglobin 14.2 g/dL (13.0-16.5); Lymphocyte # 1.53 X10^3/ul (0.83-4.51); Lymphocyte % 23.5 % (19-41); Mean Corp Hgb Conc 30.9 g/dL (32-36); Mean Corpuscular Hgb 30.1 pg (27.0-32.0); Mean Corpuscular Volume 97.5 fL (80-94); Monocyte# 0.65 X10^3/uL; NRBC Flagged by Analyzer 0 % (0-5); Neutrophil # 3.91 X10^3/uL (2.7-7.7); Neutrophil % 60.2 % (47-70); Platelet Count 218 K/mm3 (150-450); RBC Distribution Width CV 13.2 % (11.6-14.6); RBC Distribution Width SD 46.8 fl (35.1-43.9); Red Blood Count 4.72 M/mm3 (4.6-6.2); White Blood Count 6.5 K/mm3 (4.4-11.0)
[2023-02-06] MEDS: Aspirin 325 MG Tablet PO (06:27)
[2023-02-06 06:36] VITALS: RESP 18
[2023-02-06 06:40] LABS: Anion Gap 5 (5-15); BUN 26 mg/dL (7-18); BUN/Creat Ratio 25.5 RATIO (10-20); Calcium,Total 9.4 mg/dL (8.5-10.1); Chloride 106 mmol/L (98-107); Creatinine, Serum 1.02 mg/dL (0.70-1.30); EST Glomerular Filtration Rate 75 mL/min (>60); Est Glom Filt Rate - Afr Amer 91 mL/min (>60); Estimated Creatinine Clearance 58.68 ml/min; Glucose 110 mg/dL (74-106); Potassium 3.9 mmol/L (3.5-5.1); Sodium Level 143 mmol/L (136-145); Troponin-I HS 16 pg/mL (3.0-78.0)
[2023-02-06 07:36] VITALS: RESP 18
--- NOTE | 2023-02-06 07:43 | EX.ED.DYSGE1 ---
HPI History of Present Illness Chief Complaint: Chest Pain Narrative Narrative: Patient is a 77-year-old male with history of hypertension hyperlipidemia and Parkinson's disease. He presents today complaining of chest pain/shortness of breath. He states that for 1 to 2 minutes he will feel like it is hard to catch his breath and then he has mild chest discomfort with this and then it will resolve. He states it only occurs at nighttime and is happened recurrently over the past few week. He states he is to wear CPAP as he has history of sleep apnea but has not done so. He is concerned this could be cardiac in nature secondary to his symptoms and therefore comes in for evaluation [facility] Medical History (Updated 02/06/23 @ 07:[address] Chet Fuller DO) Atrial fibrillation Dementia History of prostate cancer HLD (hyperlipidemia) HTN (hypertension) Parkinson disease Sleep apnea Home Medications aspirin 81 mg tablet,delayed release (Kelly Low Dose Aspirin) 81 mg PO DAILY 08/09/22 [History Last Taken Unknown] carbidopa 25 mg-levodopa 250 mg tablet 1.5 tab PO TID 08/09/22 [History Last Taken Unknown] furosemide 20 mg tablet 20 mg PO DAILY 08/09/22 [History Last Taken Unknown] memantine 10 mg tablet 10 mg PO BID 08/09/22 [History Last Taken Unknown] multivitamin 1 tab PO DAILY 08/09/22 [History Last Taken Unknown] simvastatin 20 mg tablet 20 mg PO DAILY 08/09/22 [History Last Taken Unknown] cholecalciferol (vitamin D3) 125 mcg (5,000 unit) tablet (Vitamin D3) 125 mcg PO DAILY 02/06/23 [History Last Taken Unknown] latanoprost 0.005 % eye drops 1 drp QHS 02/06/23 [History Last Taken Unknown] losartan 100 mg tablet 50 mg PO DAILY 02/06/23 [History Last Taken Unknown] potassium chloride 20 mEq tablet,extended release 20 meq PO DAILY 02/06/23 [History Last Taken Unknown] Allergy/AdvReac Type Severity Reaction Status Date / Time No Known Allergies Allergy Verified 02/06/23 05:53 Family History (Updated 08/09/22 @ 06:[address] Brisa Jin MD) Mother Alzheimer disease Surgical History H/O cardiac radiofrequency ablation H/O prostatectomy History of ankle surgery History of arthroscopy of both knees History of inguinal hernia repair History of tonsillectomy and adenoidectomy Social History (Updated 08/09/22 @ 06:[address] Brisa Jin MD) household members: spouse Smoking Status: Never smoker alcohol intake: current alcohol intake frequency: a few times a week substance use type: does not use ROS ROS ED Constitutional Constitutional ED: Denies chills or fever(s) ENT ENT ED: Denies sore throat Cardiovascular Cardiovascular: Reports chest pain; Denies palpitations or racing heartbeat Respiratory/Chest Respiratory/Chest: Reports dyspnea; Denies cough Gastrointestinal Gastrointestinal: Denies abdominal pain, diarrhea, nausea or vomiting Genitourinary Genitourinary ED: Denies dysuria Musculoskeletal Musculoskeletal: Denies myalgias Integumentary Denies rash Neurologic Neurologic: Denies headache(s) Hematologic/Lymphatic Hematologic/Lymphatic: Denies easy bleeding or easy bruising EXAM Physical Exam Const Vital Signs: 02/06/23 05:37 02/06/23 05:50 Temperature 97.8 F Temperature Source Temporal Pulse Rate 84 Respiratory Rate 14 Respiratory Effort Normal Non-Labored Respiratory Pattern Normal Blood Pressure 197/101 H Blood Pressure Mean 133 Pulse Ox 94 Oxygen Delivery Method Room Air Positive well nourished and well developed General Appearance ED: well developed HEENT Reports moist mucous membranes HEENT Narrative: No tongue or lip swelling no airway edema or compromise Eyes PERRL and EOMs intact bilaterally Neck supple and no JVD Chest Wall palpation of chest normal Resp normal respiratory effort and clear to auscultation bilaterally Cardio regular rate and regular rhythm Rate: other Other Details: Radial pulses are plus 2 out of 4 bilaterally are equal and symmetric GI normal to inspection, nondistended, normoactive bowel sounds, non-tender, non-distended and no masses GI Narrative: No voluntary guarding or rigidity no pulsatile mass Auscultation: normoactive bowel sounds Palpation: soft Extremity Extremity Narrative: There is trace to +1 pitting edema that is equal and symmetric to the bilateral lower extremities. Negative Homans' sign bilaterally Neuro oriented x3 and CN's II-XII intact bilaterally Neuro Narrative: Patient has a resting pill-rolling tremor consistent with history of Parkinson's disease Sensorium / Orientation: alert Psych Psych Narrative: Patient has a nervous/anxious affect Skin no rashes or lesions noted MDM MDM MDM Narrative Medical decision making narrative: Patient presented to the ER hypertensive but has a history of this and otherwise vitals are stable. His presentation of chest discomfort is atypical cardiac disease but he does have risk factors for it and hypertension hyperlipidemia and MARGARITA and therefore cardiac work-up was obtained. Differential diagnosis includes acute coronary syndrome lung pathology such as pneumonia pleural effusion pneumothorax acute blood loss anemia acute kidney injury or electrolyte derangement or anxiety. Work-up revealed no clinically significant findings. As patient reports that symptoms seem to only occur at night while sleeping this is most likely anxiety related especially as the initial and delta troponin are running flat without significant elevation or change. Therefore at this time as overall work-up is negative patient does not need admitted to the hospital for further evaluation and is otherwise safe for discharge Lab Data Attestation: I reviewed the patient's lab results. Labs: Laboratory Results - last 24 hr 02/06/23 02/06/23 05:45 05:45 WBC 6.5 RBC 4.72 Hgb 14.2 Hct 46.0 MCV 97.5 H MCH 30.1 MCHC 30.9 L RDW Std Deviation 46.8 H RDW Coeff of Jessica 13.2 Plt Count 218 MPV 10.0 Immature Gran % (Auto) 0.200 Neut % (Auto) 60.2 Lymph % (Auto) 23.5 Gem % (Auto) 10.0 Eos % (Auto) 5.2 H Baso % (Auto) 0.9 Absolute Neuts (auto) 3.9 Absolute Lymphs (auto) 1.53 Nucleated RBC % 0 Sodium 143 Potassium 3.9 Chloride 106 Carbon Dioxide 32.0 Anion Gap 5 BUN 26 H Creatinine 1.02 Estim Creat Clear Calc 58.68 Est GFR (MDRD) Af Amer 91 Est GFR (MDRD) Non-Af 75 BUN/Creatinine Ratio 25.5 H Glucose 110 H Calcium 9.4 Troponin I High Sens 16 Radiography Diagnostic Testing: Clinical Impression(s) from Imaging Studies Chest X-Ray 02/06/23 06:09 IMPRESSION: No radiographic evidence of acute cardiopulmonary disease. Electronically Signed: Lorena Acosta MD at 6:50 EDT Reading Location ID and State: [facility] / [place] Tel , Service support , Chest x-ray as interpreted by the emergency medicine physician reveals no acute infiltrate pneumothorax or pleural effusion Discharge Plan Triage Chief Complaint: Chest Pain ED Provider: Chet Fuller Dx/Rx/DC Orders Clinical Impression: Nonspecific chest pain, Hypertension, Parkinson's disease, Obstructive sleep apnea Instructions: ED Chest Pain, Uncertain Cause Prescriptions: No Action multivitamin Tablet 1 tab PO DAILY carbidopa-levodopa 25-250 mg tablet 1.5 tab PO TID aspirin [Kelly Low Dose Aspirin] 81 mg Tablet,Delayed Release (Dr/Ec) 81 mg PO DAILY simvastatin 20 mg tablet 20 mg PO DAILY Label Comments: TAKE 1 TABLET BY MOUTH EVERY DAY furosemide 20 mg tablet 20 mg PO DAILY Label Comments: TAKE 1 TABLET BY MOUTH EVERY DAY memantine 10 mg tablet 10 mg PO BID Label Comments: TAKE 1 TABLET BY MOUTH TWICE A DAY latanoprost 0.005 % drops 1 drp QHS cholecalciferol (vitamin D3) [Vitamin D3] 125 mcg (5,000 unit) Tablet 125 mcg PO DAILY potassium chloride 20 mEq tablet extended release 20 meq PO DAILY losartan 100 mg tablet 50 mg PO DAILY Primary Care Provider: Lydia Gibbons Referrals: Lydia Gibbons, [facility] [Primary Care Provider] - Activity Restrictions/Additional Instructions: Your work-up today shows no signs of acute coronary injury. Follow-up with your family doctor for repeat evaluation and return to the ER should you have any further concerns Disposition Disposition: Home, Self Care
[2023-02-06 08:01] LABS: Troponin-I HS 16 pg/mL (3.0-78.0)
== END 2023-02-06 08:11 | disposition home or self-care (01) ==
PROVIDERS: Emergency Provider Emergency Medicine; PCP Nurse Practitioner Family; Visit Provider Emergency Medicine
DX: R07.9 Chest pain, unspecified (principal); G20 Parkinson's disease; I48.91 Unspecified atrial fibrillation; I10 Essential (primary) hypertension; G47.33 Obstructive sleep apnea (adult) (pediatric); E78.5 Hyperlipidemia, unspecified; Z79.82 Long term (current) use of aspirin; Z79.899 Other long term (current) drug therapy
CPT/HCPCS: 71045; 80048; 84484; 85025; 93005; 99284; A4216

== ENCOUNTER 2024-02-01 15:57 | Emergency (ER) | payer OTHER, MEDICARE, SELFPAY ==
[2024-02-01 16:04] VITALS: BP 172/95; PULSE 62; RESP 14; TEMP 35.9; O2SAT 98
[2024-02-01 16:09] VITALS: BP 188/91; PULSE 60; RESP 12; O2SAT 98
[2024-02-01 16:27] VITALS: BMI 27.3
[2024-02-01 16:41] LABS: Absolute Lymphocyte Count 1.03 X10^3/uL (0.83-4.51); Absolute Neutrophil Count 2.4 X10^3/uL (2.0-7.7); Basophil# 0.03 X10^3/uL; Basophil% 0.8 % (0-1); Eosinophil# 0.08 X10^3/uL; Hematocrit 38.8 % (40-54); Hemoglobin 12.3 g/dL (13.0-16.5); Lymphocyte # 1.03 X10^3/ul (0.83-4.51); Lymphocyte % 26.2 % (19-41); Mean Corp Hgb Conc 31.7 g/dL (32-36); Mean Corpuscular Hgb 30.7 pg (27.0-32.0); Mean Corpuscular Volume 96.8 fL (80-94); Mean Platelet Vol. 9.8 fl (6.2-12.0); Monocyte# 0.42 X10^3/uL; Monocyte% 10.7 % (0-10); NRBC Flagged by Analyzer 0 % (0-5); Neutrophil # 2.36 X10^3/uL (2.7-7.7); Platelet Count 171 K/mm3 (150-450); RBC Distribution Width CV 14.7 % (11.6-14.6); Red Blood Count 4.01 M/mm3 (4.6-6.2); White Blood Count 3.9 K/mm3 (4.4-11.0)
[2024-02-01 16:59] LABS: AST(SGOT) 44 U/L (15-37); Alanine Aminotransfer ALT/SGPT 68 U/L (16-61); Albumin, Serum 3.2 g/dL (3.2-5.0); Alkaline Phosphatase 97 U/L (45-117); Anion Gap 1 (5-15); BUN 25 mg/dL (7-18); BUN/Creat Ratio 33.7 RATIO (10-20); Chloride 106 mmol/L (98-107); Creatinine, Serum 0.74 mg/dL (0.70-1.30); EST Glomerular Filtration Rate 108 mL/min (>60); Est Glom Filt Rate - Afr Amer 131 mL/min (>60); Estimated Creatinine Clearance 73.63 ml/min; Globulin 3.2 g/dL (2.2-4.2); Glucose 97 mg/dL (74-106); Potassium 4.2 mmol/L (3.5-5.1); Protein, Total 6.4 g/dL (6.4-8.2); Sodium Level 139 mmol/L (136-145)
[2024-02-01 17:09] VITALS: BP 178/80; PULSE 59; RESP 22; O2SAT 96
[2024-02-01 17:18] LABS: Bacteria 0 SEEN /hpf (None Seen); Color, Urine Yellow (Yellow); Glucose, Dipstick Normal (Normal); Ketone-Dipstick Negative (Negative); Leukocyte Esterase-Dipstick Negative /ul (Negative); Mucous, Urine 0 SEEN /hpf (<or=2+); Nitrite-Dipstick Negative (Negative); Occult Blood-Urine Negative /ul (Negative); Protein-Dipstick Negative (Negative); Red Blood Cells-Urine 0 SEEN /hpf (0-5); Squamous Epithelial Cells - UA 0 SEEN /hpf (0-5); Urine Bilirubin Dipstick Negative (Negative); Urine Clarity Sl. Cloudy (Clear); Urine Urobilinogen Normal (Normal); White Blood Cells 0 SEEN /hpf (0-5)
[2024-02-01 18:00] VITALS: BP 173/78; PULSE 61; RESP 13; O2SAT 97
[2024-02-01 19:00] VITALS: BP 181/83; PULSE 62; RESP 13; O2SAT 96
--- NOTE | 2024-02-01 19:02 | EDS_ITS ---
HPI History of Present Illness Chief Complaint: General Illness Detail of Chief Complaint: Confusion. Told he is having a stroke Informant: patient and spouse/S.O. Limited: dementia Onset/Context/Timing Onset: Today (Exact time is unknown) Quality: Difficult to establish quality, quantity and duration because of dementia. Location: More confusion than anything else Current Severity: Unable to determine Maximum Severity: Unable to determine Worsened by: Nothing Relieved by: Nothing Associated Symptoms Associated Symptoms: Confusion Narrative Narrative: Patient is a 78-year-old male. He has history of Parkinson disease, stroke, hypertension who was brought to the emergency room because he told his he is having a stroke. states he is more confused than normal. He does have dementia. Does have Parkinson's disease. He is on multiple meds. She will obtain a list. He denies headache, visual, ocular auditory symptoms. Denies trouble with speech or swallowing. He denies cardiac respiratory symptoms. He denies GI symptoms. He denies symptoms. He denies feeling feverish. Prior similar symptoms: No Recent Illness/Hospitalization: No [facility] Medical History Atrial fibrillation Dementia History of prostate cancer HLD (hyperlipidemia) HTN (hypertension) Parkinson disease Sleep apnea Home Medications aspirin 81 mg tablet,delayed release (Kelly Low Dose Aspirin) 81 mg PO DAILY 08/09/22 [History Last Taken Unknown] carbidopa 25 mg-levodopa 250 mg tablet 1.5 tab PO TID 08/09/22 [History Last Taken Unknown] furosemide 20 mg tablet 20 mg PO DAILY 08/09/22 [History Last Taken Unknown] memantine 10 mg tablet 10 mg PO BID 08/09/22 [History Last Taken Unknown] multivitamin 1 tab PO DAILY 08/09/22 [History Last Taken Unknown] simvastatin 20 mg tablet 20 mg PO DAILY 08/09/22 [History Last Taken Unknown] cholecalciferol (vitamin D3) 125 mcg (5,000 unit) tablet (Vitamin D3) 125 mcg PO DAILY 02/06/23 [History Last Taken Unknown] latanoprost 0.005 % eye drops 1 drp QHS 02/06/23 [History Last Taken Unknown] losartan 100 mg tablet 50 mg PO DAILY 02/06/23 [History Last Taken Unknown] potassium chloride 20 mEq tablet,extended release 20 meq PO DAILY 02/06/23 [History Last Taken Unknown] Allergy/AdvReac Type Severity Reaction Status Date / Time No Known Allergies Allergy Verified 02/01/24 16:03 Family History Mother Alzheimer disease Surgical History H/O cardiac radiofrequency ablation H/O prostatectomy History of ankle surgery History of arthroscopy of both knees History of inguinal hernia repair History of tonsillectomy and adenoidectomy Social History household members: spouse Smoking Status: Never smoker alcohol intake: current alcohol intake frequency: a few times a week substance use type: does not use ROS ROS ED Review of Systems ROS Unobtainable: due to mental status EXAM Physical Exam Const Vital Signs: 02/01/24 16:04 02/01/24 16:27 02/01/24 16:09 Temperature 96.7 F L Temperature Source Temporal Pulse Rate 62 60 Respiratory Rate 14 12 Respiratory Effort Normal Respiratory Pattern Normal Blood Pressure 172/95 H 188/91 H Blood Pressure Mean 120 123 Pulse Ox 98 98 Oxygen Delivery Method Room Air Room Air 02/01/24 17:09 02/01/24 18:00 02/01/24 19:00 Temperature Temperature Source Pulse Rate 59 L 61 62 Respiratory Rate 22 H 13 13 Respiratory Effort Respiratory Pattern Blood Pressure 178/80 H 173/78 H 181/83 H Blood Pressure Mean 112 109 115 Pulse Ox 96 97 96 Oxygen Delivery Method Room Air Room Air Room Air Positive well nourished and well developed General Appearance ED: well developed and NAD; Negative for cyanotic, diaphoretic or pallor HEENT Reports dry mucous membranes HEENT Narrative: Head is atraumatic and normocephalic. Ears normal. TMs normal. Nares patent. Posterior pharynx unremarkable. Uvula midline. No deviation with protrusion. Mouth ED: Yes dry mucous membranes Mouth: dry mucous membranes Eyes PERRL and EOMs intact bilaterally Eyes Narrative: There is no nystagmus. General Eye ED: Negative for pale conjunctiva or scleral icterus Neck no lymphadenopathy, supple and no JVD Neck Narrative: There are no carotid bruits noted Chest Wall inspection of chest normal and palpation of chest normal Resp normal respiratory effort and clear to auscultation bilaterally Cardio regular rate, regular rhythm, S1 normal heart sound, S2 normal heart sound and no murmurs GI normal to inspection, nondistended, normoactive bowel sounds, non-tender, non- distended and no masses; Negative for hepatosplenomegaly Back/Spine no CVA tenderness Thoracic Spine / Upper Back: Negative for thoracic spinal tenderness Lumbar Spine / Lower Back: Negative for lumbar spinal tenderness Extremity General Extremety ED: Yes edema General Extremity: edema Neuro No oriented x3, CN's II-XII intact bilaterally and no sensory deficits noted Neuro Narrative: Patient does not know his age, the date. He knows he is at the hospital. He is awake but not alert. Sensorium / Orientation: orientation impaired Motor Exam: strength 5/5 throughout Psych Psych Narrative: Patient has flat face appearance consistent with Parkinson's. He does have some cogwheel rigidity noted at the elbows. Mood & Affect: depressed Skin no rashes or lesions noted, no wounds and skin turgor normal General Skin Exam: Negative for elasticity normal, jaundice or pallor MDM MDM MDM Narrative Medical decision making narrative: Patient history and physical is not consistent with stroke. Most likely this is probably due to his Parkinson's and dementia. Will obtain blood work and UA to assess for metabolic or infectious cause of his change in mental status. History & Record Review Discussion w/independent historian: Significant other Lab Data Attestation: I reviewed the patient's lab results. Lab results narrative: Patient is neutropenic and mildly anemic. He has not been neutropenic in the past is BUN is elevated at 25. His BUN to creatinine ratio is elevated at 33-1. Patient's urinalysis is unremarkable. Since patient does not have black stool. Believe his elevated BUN to creatinine ratio is due to dehydration since his mucosa is dry. Comparison blood work is from 2020. Labs: Laboratory Results - last 24 hr 02/01/24 02/01/24 16:30 17:10 WBC 3.9 L RBC 4.01 L Hgb 12.3 L Hct 38.8 L MCV 96.8 H MCH 30.7 MCHC 31.7 L RDW Std Deviation 53.0 H RDW Coeff of Jessica 14.7 H Plt Count 171 MPV 9.8 Immature Gran % (Auto) 0.300 Neut % (Auto) 60.0 Lymph % (Auto) 26.2 [place] % (Auto) 10.7 H Eos % (Auto) 2.0 Baso % (Auto) 0.8 Absolute Neuts (auto) 2.4 Absolute Lymphs (auto) 1.03 Nucleated RBC % 0 Sodium 139 Potassium 4.2 Chloride 106 Carbon Dioxide 32.0 Anion Gap 1 L BUN 25 H Creatinine 0.74 Estim Creat Clear Calc 73.63 Est GFR (MDRD) Af Amer 131 Est GFR (MDRD) Non-Af 108 BUN/Creatinine Ratio 33.7 H Glucose 97 Calcium 9.0 Total Bilirubin 0.30 AST 44 H ALT 68 H Alkaline Phosphatase 97 Total Protein 6.4 Albumin 3.2 Globulin 3.2 Albumin/Globulin Ratio 1.0 Urine Color Yellow Urine Clarity Sl. Cloudy Urine pH 7.0 Ur Specific [place] 1.010 Urine Protein Negative Urine Glucose (UA) Normal Urine Ketones Negative Urine Occult Blood Negative Urine Nitrite Negative Urine Bilirubin Negative Urine Urobilinogen Normal Ur Leukocyte Esterase Negative Urine RBC 0 SEEN Urine WBC 0 SEEN Ur Squamous Epith Cells 0 SEEN Urine Bacteria 0 SEEN Urine Mucus 0 SEEN Discharge Plan Triage Chief Complaint: General Illness ED Provider: Filiberto Dill Dx/Rx/DC Orders Clinical Impression: Acute prerenal azotemia, Anemia, Dementia, Neutropenia, Altered mental status, Parkinson's disease Instructions: ED Confusion, ED Dehydration (Adult) Prescriptions: No Action multivitamin Tablet 1 tab PO DAILY carbidopa-levodopa 25-250 mg tablet 1.5 tab PO TID aspirin [Kelly Low Dose Aspirin] 81 mg Tablet,Delayed Release (Dr/Ec) 81 mg PO DAILY simvastatin 20 mg tablet 20 mg PO DAILY Patient Comments: TAKE 1 TABLET BY MOUTH EVERY DAY furosemide 20 mg tablet 20 mg PO DAILY Patient Comments: TAKE 1 TABLET BY MOUTH EVERY DAY memantine 10 mg tablet 10 mg PO BID Patient Comments: TAKE 1 TABLET BY MOUTH TWICE A DAY latanoprost 0.005 % drops 1 drp QHS cholecalciferol (vitamin D3) [Vitamin D3] 125 mcg (5,000 unit) Tablet 125 mcg PO DAILY potassium chloride 20 mEq tablet extended release 20 meq PO DAILY losartan 100 mg tablet 50 mg PO DAILY Primary Care Provider: Lydia Gibbons Referrals: Lydia Gibbons, THREAD SEPARATOR-C [Primary Care Provider] - 3-5 Days if not improving Disposition Disposition: Home, Self Care
[2024-02-01 19:33] VITALS: BP 164/79; PULSE 72; RESP 14; TEMP 36.8; O2SAT 96
== END 2024-02-01 19:34 | disposition home or self-care (01) ==
PROVIDERS: Emergency Provider Emergency Medicine; PCP Nurse Practitioner Family; Visit Provider Emergency Medicine
DX: R79.89 Other specified abnormal findings of blood chemistry (principal); G20.C Parkinsonism, unspecified; F02.80 Dementia in other diseases classified elsewhere, unspecified severity, without behavioral disturbance, psychotic disturbance, mood disturbance, and anxiety; D64.9 Anemia, unspecified; D70.9 Neutropenia, unspecified; G47.30 Sleep apnea, unspecified
CPT/HCPCS: 80053; 81001; 85025; 99283; A4216

== ENCOUNTER 2024-04-09 14:05 | Inpatient (IN) | payer MEDICARE, OTHER, SELFPAY ==
[2024-04-09] VITALS (28 sets, daily range): BP systolic 98–151; BP diastolic 50–77; PULSE 67–84; RESP 12–17; TEMP 36.6–36.9; O2SAT 92–98; BMI 27.6; BMI 27.4
--- NOTE | 2024-04-09 14:08 | CT_ITS ---
STUDY: CT HEAD STROKE PROTOCOL W/O CONTRAST INJECTION REASON FOR EXAM: Male, 78 years old. Neuro deficit, acute, stroke suspected RADIATION DOSAGE (If Supplied By Facility): CTDIvol = ( 44.99 ) mGy, DLP = ( 863.6 ) mGycm TECHNIQUE: Transaxial CT imaging of the brain was performed without administration of intravenous contrast material. Individualized dose optimization techniques were used for this CT. COMPARISON: Comparison is made with prior study dated August 09, 2022. FINDINGS: Normal soft tissue structures. Normal calvarium. There is mild cerebral atrophy with widening of the extra-axial spaces and ventricular dilatation. There are areas of decreased attenuation within the white matter tracts of the supratentorial brain, consistent with microvascular disease changes. Normal basal ganglia and thalami. Normal brainstem. Normal cerebellum. There is no intracranial hemorrhage. There are no findings of an acute ischemic infarction. Atherosclerotic calcification of the cavernous portions of the internal carotid arteries bilaterally. Normal visualized paranasal sinuses. ASPECT score: 10 CT/STROKE Brain/Head without Cont IMPRESSION: Chronic involutional changes of the brain. N.B. : The above Results were Read Back by Benji Flor MD to Dr Ian DO, and understanding confirmed on 04/09/2024 14:20:25 (ET). Electronically Signed: Benji Flor MD at 14:22 EDT ,
--- NOTE | 2024-04-09 14:08 | EKG12_ITS ---
Test Reason : Blood Pressure : / mmHG Vent. Rate : 081 BPM Atrial Rate : 081 BPM P-R Int : 248 ms QRS Dur : 100 ms QT Int : 396 ms P-R-T Axes : 029 -23 006 degrees QTc Int : 460 ms Sinus rhythm with 1st degree A-V block Otherwise normal ECG Confirmed by ONEAL AGUSTIN, RAFA ([id number]), desk editor ROSAURA GRUBBS ([id number]) on 04/15/2024 10:37:55 A M Referred By: Confirmed By:JAZ NO MD
--- NOTE | 2024-04-09 14:10 | ED.VIS.STROK ---
HPI History of Present Illness Chief Complaint: Stroke Alert Informant: spouse/S.O., friend and EMS Onset/Context/Timing Onset: Hours (0.5) Context: Sudden Onset Timing: Continuous Onset: Approximately 1330 hrs. today Narrative Narrative: Patient presents with an acute stroke alert that occurred today. Family states that the patient was acting normally at approximately 1330 hrs. today. Family states patient went outside and his neighbor found him laying on the front lawn. EMS reports the patient was confused and unable to speak. EMS reports that patient did have some right-sided weakness and right facial droop. Patient also has some aphasia and is a poor informant. Patient does have a history of Parkinson's disease however. Patient was unable to clearly answer if he had a headache or chest pain. [facility] Medical History History of prostate cancer HLD (hyperlipidemia) HTN (hypertension) Dementia Atrial fibrillation Sleep apnea Parkinson disease Home Medications ?Medication ?Instructions ?Recorded ?Last Taken ?Type carbidopa 25 mg-levodopa 250 mg 1 tab PO TID 08/09/22 Unknown History tablet furosemide 20 mg tablet 20 mg PO DAILY 08/09/22 Unknown History memantine 10 mg tablet 10 mg PO BID 08/09/22 Unknown History potassium chloride 20 mEq 20 meq PO DAILY 02/06/23 Unknown History tablet,extended release donepezil 5 mg tablet 5 mg PO QHS 04/09/24 Unknown History entacapone 200 mg tablet 200 mg PO TID 04/09/24 Unknown History losartan 50 mg tablet 50 mg PO DAILY 04/09/24 Unknown History omeprazole 20 mg capsule,delayed 20 mg PO DAILY 04/09/24 Unknown History release Allergy/AdvReac Type Severity Reaction Status Date / Time No Known Allergies Allergy Verified 04/09/24 15:56 Family History Mother Alzheimer disease Surgical History History of inguinal hernia repair History of arthroscopy of both knees History of tonsillectomy and adenoidectomy History of ankle surgery H/O prostatectomy H/O cardiac radiofrequency ablation Social History household members: spouse Smoking Status: Never smoker alcohol intake: current alcohol intake frequency: a few times a week substance use type: does not use ROS ROS ED Review of Systems ROS Unobtainable: due to mental status EXAM Physical Exam Const Vital Signs: 04/09/24 14:08 04/09/24 14:09 04/09/24 14:29 Temperature Temperature Source Pulse Rate 79 70 Respiratory Rate 15 16 Blood Pressure 128/68 H 110/66 Blood Pressure Mean 88 80 Blood Pressure Source Blood Pressure Position Blood Pressure Location Pulse Ox 92 94 Oxygen Delivery Method Room Air Room Air Room Air 04/09/24 14:31 04/09/24 14:38 04/09/24 14:46 Temperature 97.8 F 97.8 F Temperature Source Temporal Temporal Pulse Rate 75 78 Respiratory Rate 16 16 Blood Pressure 128/68 H 128/68 H 139/70 H Blood Pressure Mean 88 93 Blood Pressure Source Monitor Monitor Blood Pressure Position Semi-Fowlers Semi-Fowlers Blood Pressure Location Right Arm Right Arm Pulse Ox 93 94 Oxygen Delivery Method Room Air Room Air 04/09/24 14:54 04/09/24 15:01 04/09/24 15:16 Temperature 97.8 F 97.8 F 98.5 F Temperature Source Temporal Temporal Oral Pulse Rate 70 80 79 Respiratory Rate 16 16 13 Blood Pressure 110/66 150/70 H 151/71 H Blood Pressure Mean 80 96 97 Blood Pressure Source Monitor Monitor Blood Pressure Position Semi-Fowlers Semi-Fowlers Blood Pressure Location Right Arm Right Arm Pulse Ox 94 95 95 Oxygen Delivery Method Room Air Room Air Room Air 04/09/24 15:31 04/09/24 15:40 04/09/24 15:46 Temperature 98.5 F 98.5 F 98.5 F Temperature Source Oral Oral Pulse Rate 84 84 81 Respiratory Rate 17 17 16 Blood Pressure 149/77 H 149/77 H 142/70 H Blood Pressure Mean 101 101 94 Blood Pressure Source Monitor Monitor Blood Pressure Position Semi-Fowlers Semi-Fowlers Blood Pressure Location Right Arm Left Arm Pulse Ox 94 94 95 Oxygen Delivery Method Room Air Room Air 04/09/24 16:01 Temperature 98.5 F Temperature Source Oral Pulse Rate 82 Respiratory Rate 12 Blood Pressure 147/74 H Blood Pressure Mean 98 Blood Pressure Source Monitor Blood Pressure Position Semi-Fowlers Blood Pressure Location Right Arm Pulse Ox 96 Oxygen Delivery Method Room Air Positive well nourished and well developed General Appearance ED: well developed and NAD HEENT Reports moist mucous membranes Neck supple and no JVD Resp normal respiratory effort and clear to auscultation bilaterally Cardio Rate: regular rate Rhythm: regular rhythm GI soft to palpation, non-tender and non-distended Neuro Neuro Narrative: There is right facial droop noted. The eyebrows are able to be elevated equally bilaterally. Patient has expressive aphasia and has garbled speech. There is weakness over the right upper and lower extremities. Patient is able to his left upper extremity off of the bed for 10 seconds. Patient does have some weakness in his left leg but the right leg is weaker. Sensorium / Orientation: alert NIHSS NIHSS Initial: 1b LOC Questions (Score 2 if aphasic/stupor): 2 4 Facial Palsy: 2 5 Motor Arm Right (UN = amputation/fusion): 2 5 Motor Arm Left: 0 6 Motor Leg Right: 2 6 Motor Leg Left: 1 9 Best Language: 2 10 Dysarthria (mute, coma=2, intubated=UN): 1 Total Score: 12 MDM MDM MDM Narrative Medical decision making narrative: Differential diagnosis includes stroke, intracranial bleeding, electrolyte abnormality, infection, cardiac dysrhythmia, cardiac ischemia, dehydration. CT scan of the brain will be obtained to assess for acute stroke or intracranial bleeding. CTA of the head and neck will be obtained to assess for large vessel occlusion. Chest x-ray will be obtained to assess for pneumonia and widened mediastinum. EKG will be obtained to assess for cardiac dysrhythmia and cardiac ischemia. CBC will be obtained to assess for leukocytosis and anemia. Basic metabolic profile will be obtained to assess for electrolyte abnormality and renal function. High-sensitivity troponin will be obtained to assess for cardiac ischemia. PT was INR and PTT will be obtained to assess for coagulopathy. Urinalysis will be obtained to assess for urinary tract infection and hematuria. Lab Data Attestation: I reviewed the patient's lab results. Lab results narrative: CBC was reviewed. There is a slight anemia with a hemoglobin of 11.8 and hematocrit 36.6. Platelets were normal. PT with INR and PTT were reviewed and were essentially within normal limits. Basic metabolic profile was reviewed. BUN was slightly elevated at 30 and creatinine was normal at 1.01. High-sensitivity troponin was reviewed and was normal at 17. Labs: Laboratory Results - last 24 hr 04/09/24 04/09/24 13:44 15:14 WBC 4.2 L RBC 3.94 L Hgb 11.8 L Hct 36.6 L MCV 92.9 MCH 29.9 MCHC 32.2 RDW Std Deviation 52.7 H RDW Coeff of Jessica 15.4 H Plt Count 202 MPV 9.9 Immature Gran % (Auto) 0.000 Neut % (Auto) 69.2 Lymph % (Auto) 14.9 L [place] % (Auto) 9.6 Eos % (Auto) 5.8 H Baso % (Auto) 0.5 Absolute Neuts (auto) 2.9 Absolute Lymphs (auto) 0.62 L Nucleated RBC % 0 PT 14.4 INR 1.1 APTT 30.4 Sodium 141 Potassium 4.3 Chloride 108 H Carbon Dioxide 29.0 Anion Gap 4 L BUN 30 H Creatinine 1.01 Estim Creat Clear Calc 63.13 Est GFR (MDRD) Af Amer 92 Est GFR (MDRD) Non-Af 76 BUN/Creatinine Ratio 29.7 H Glucose 97 Calcium 9.4 Troponin I High Sens 17 Urine Color Yellow Urine Clarity Clear Urine pH 6.5 Ur Specific [place] 1.015 Urine Protein Negative Urine Glucose (UA) Normal Urine Ketones 5 H Urine Occult Blood Negative Urine Nitrite Negative Urine Bilirubin Negative Urine Urobilinogen Normal Ur Leukocyte Esterase 25 H Urine RBC 0 SEEN Urine WBC 0-5 SEEN Ur Squamous Epith Cells 0-5 SEEN Ur Renal Epithelial Cell 0-5 SEEN Urine Bacteria 1+ Hyaline Casts 0-5 SEEN Urine Mucus 0 SEEN Radiography Diagnostic Testing: Clinical Impression(s) from Imaging Studies Brain CT 04/09/24 14:08 IMPRESSION: Chronic involutional changes of the brain. N.B. : The above Results were Read Back by Benji Flor MD to Dr Ian DO, and understanding confirmed on 04/09/2024 14:20:25 (ET). Electronically Signed: Benji Flor MD at 14:22 EDT , ADDENDUM: 04/09/24 1429 IMPRESSION: Chronic involutional changes of the brain. N.B. : The above Results were Read Back by Benji Flor MD to Dr Ian DO, and understanding confirmed on 04/09/2024 14:20:25 (ET). Electronically Signed: Benji Flor MD at 14:22 EDT , Head/Neck CTA 04/09/24 14:12 IMPRESSION: Normal CTA Head and neck with contrast. N.B. : The above Results were Read Back by Benji Flor MD to Angel Briones and understanding confirmed on 04/09/2024 14:34:04 (ET). Electronically Signed: Benji Flor MD at 14:35 EDT , ADDENDUM: 04/09/24 1442 IMPRESSION: Normal CTA Head and neck with contrast. N.B. : The above Results were Read Back by Benji Flor MD to Angel Briones and understanding confirmed on 04/09/2024 14:34:04 (ET). Electronically Signed: Benji Flor MD at 14:35 EDT , Chest X-Ray 04/09/24 15:20 IMPRESSION: Cardiomegaly. The lungs are clear. Electronically Signed: Benji Flor MD at 15:28 EDT , CT scan of the brain was obtained. There is no acute intracranial abnormality. This was interpreted by the radiologist was also independently reviewed by myself. CTA of the head and neck were obtained. There is no large vessel occlusion. There is no significant stenosis. This was interpreted by the radiologist was also independently reviewed by myself. Portable 1 view chest x-ray was obtained. On my independent interpretation, lung finney are clear. There is cardiomegaly. Bony thorax is normal. There is no acute process noted. Radiologist also interpreted the x-ray and agrees. EKG Initial EKG: Comments: EKG was obtained. On my independent interpretation, it showed a sinus rhythm with a first-degree AV block with a rate of 81. MT interval was prolonged at 248 ms. QRS interval and QTc intervals were normal. There is borderline left axis deviation -23. There are no acute ST or T wave changes. Prior EKG tracings: available for review Prior: Unchanged (02/06/2023) Management Discussion w/another healthcare provider: Hospitalist (Dr. Betancourt), Horizontal Drill Operator (Dr. Whitaker) and Radiologist (Dr. Flor) Treatment and Re-Evaluation Narrative: Patient was evaluated by stroke neurologist. Case was discussed with Dr. Whitaker, stroke neurologist. He did recommend administering tenecteplase. Family is agreeable with this. Patient appears to be agreeable with this as well. Patient and family were advised of the risks and benefits. They had no further questions. Patient was given tenecteplase. Case will be discussed with the hospitalist for admission. He will admit the patient to ICU. Patient and family understood and were agreeable with plan. All questions were answered. Stroke Documentation Questions Stroke Team Activated: Yes Reviewed Inclusion/Exclusion criteria: Yes Was Patient considered for Endovascular Intervention?: No-CTA negative, determined not to be an endovascular candidate IV Thrombolytic Administered: Yes No contraindications from thrombolytic administration: Yes Risks, Benefits, Alternatives Discussed: Yes Critical Care Time Critical Care Time: Yes Critical care time (excluding procedures): 30-74 minutes (33 minutes), Including time spent:, Discussing w/Patient &/or Family/Nurse Transition, Discussing w/Consultants, Arranging Admission or Transfer and Performing Direct Patient Care at Bedside Discharge Plan Dx/Rx/DC Orders Clinical Impression: Stroke, Expressive aphasia, Hx of Parkinson's disease Disposition Disposition: [facility]
--- NOTE | 2024-04-09 14:12 | CT_ITS ---
STUDY: CTA HEAD AND NECK WITH CONTRAST REASON FOR EXAM: Male, 78 years old. Neuro deficit, acute, stroke suspected RADIATION DOSAGE (If Supplied By Facility): CTDIvol = ( 23.84 ) mGy, DLP = ( 714.50 ) mGycm TECHNIQUE: CT angiography was performed with a multi-detector CT scanner. Data acquisition was obtained from the skull base through the vertex following intravenous administration of IV 100mL [id number]-[id number]. MIP images were reconstructed from the axial data set. Post-processing of the angiographic images was performed, with multiplanar reformation and 3D reconstruction. Individualized dose optimization techniques were used for this CT. COMPARISON: Comparison is made with prior study dated August 09, 2022. FINDINGS: Normal bilateral petrous carotid arteries. There is calcified plaque formation of the right cavernous carotid artery, without a cross-sectional luminal stenosis. There is calcified plaque formation of the left cavernous carotid artery, without a cross-sectional luminal stenosis. Normal right A1 segments of the anterior cerebral artery. Normal left A1 segments of the anterior cerebral artery. Normal intact anterior communicating artery (ACOM). Normal bilateral A2 segments of the anterior cerebral arteries. Normal right M1 and M2 segments of the middle cerebral arteries, with a normal M1 bifurcation. Normal left M1 and M2 segments of the middle cerebral arteries, with a normal M1 bifurcation. Normal right posterior communicating artery (PCOM). Normal left posterior communicating artery (PCOM). Normal bilateral vertebral arteries. Normal basilar artery with a normal basilar bifurcation. The visualized bilateral superior cerebellar (SCA) arteries are normal. Normal bilateral P1, P2 and visualized P3 segments of the posterior cerebral arteries. There is no demonstrated aneurysm of the paimiut of [place]. AORTIC ARCH: There is atherosclerotic calcific plaque formation of the aortic arch and great vessels arising from the aortic arch, without a hemodynamically significant stenosis. There is a bovine origin of the great vessels with a common origin of the brachiocephalic and left common carotid artery. Normal origin of the left subclavian artery. RIGHT CAROTID ARTERIES: Normal right common carotid artery (CCA). Normal right common carotid bulb. Normal origin of the right internal carotid (ICA) artery without a hemodynamically significant stenosis. Normal visualized cervical portion of the right internal carotid artery. Normal origin of the right external carotid artery (ECA). LEFT CAROTID ARTERIES: Normal left common carotid artery (CCA). Normal left common carotid bulb. Normal origin of the left internal carotid (ICA) artery without a hemodynamically significant stenosis. Normal visualized cervical portion of the left internal carotid artery. Normal origin of the left external carotid artery (ECA). VERTEBRAL ARTERIES: There is enhancement within the bilateral vertebral arteries with a small right vertebral artery, and a dominant left vertebral artery. CT/STROKE CTA Head AND Neck W/Con IMPRESSION: Normal CTA Head and neck with contrast. N.B. : The above Results were Read Back by Benji Flor MD to Angel Briones and understanding confirmed on 04/09/2024 14:34:04 (ET). Electronically Signed: Benji Flor MD at 14:35 EDT ,
[2024-04-09 14:23] LABS: Absolute Lymphocyte Count 0.62 X10^3/uL (0.83-4.51); Absolute Neutrophil Count 2.9 X10^3/uL (2.0-7.7); Basophil# 0.02 X10^3/uL; Basophil% 0.5 % (0-1); Eosinophil# 0.24 X10^3/uL; Eosinophils% 5.8 % (0-5); Hematocrit 36.6 % (40-54); Hemoglobin 11.8 g/dL (13.0-16.5); Lymphocyte # 0.62 X10^3/ul (0.83-4.51); Lymphocyte % 14.9 % (19-41); Mean Corp Hgb Conc 32.2 g/dL (32-36); Mean Corpuscular Hgb 29.9 pg (27.0-32.0); Mean Corpuscular Volume 92.9 fL (80-94); Mean Platelet Vol. 9.9 fl (6.2-12.0); Monocyte% 9.6 % (0-10); NRBC Flagged by Analyzer 0 % (0-5); Neutrophil # 2.87 X10^3/uL (2.7-7.7); Neutrophil % 69.2 % (47-70); Platelet Count 202 K/mm3 (150-450); RBC Distribution Width CV 15.4 % (11.6-14.6); RBC Distribution Width SD 52.7 fl (35.1-43.9); Red Blood Count 3.94 M/mm3 (4.6-6.2); White Blood Count 4.2 K/mm3 (4.4-11.0)
[2024-04-09 14:36] LABS: International Normalized Ratio 1.1; Prothrombin Time (Protime)PT. 14.4 SECONDS (11.7-14.9)
[2024-04-09 14:37] LABS: Partial Thromboplast Time 30.4 Seconds (24.1-36.2)
[2024-04-09] MEDS: TENECTEPLASE 2966.4 MG IV (14:38)
[2024-04-09] MEDS: 0.9% Saline Lock 10 ML Syringe IV ×2 (14:38→14:40)
[2024-04-09 14:40] LABS: Anion Gap 4 (5-15); BUN 30 mg/dL (7-18); BUN/Creat Ratio 29.7 RATIO (10-20); Calcium,Total 9.4 mg/dL (8.5-10.1); Chloride 108 mmol/L (98-107); Creatinine, Serum 1.01 mg/dL (0.70-1.30); EST Glomerular Filtration Rate 76 mL/min (>60); Est Glom Filt Rate - Afr Amer 92 mL/min (>60); Estimated Creatinine Clearance 63.13 ml/min; Glucose 97 mg/dL (74-106); Potassium 4.3 mmol/L (3.5-5.1); Sodium Level 141 mmol/L (136-145); Troponin-I HS 17 pg/mL (3.0-78.0)
[2024-04-09 15:20] LABS: Mucous, Urine 0 SEEN /hpf (<or=2+); Red Blood Cells-Urine 0 SEEN /hpf (0-5)
[2024-04-09] MEDS: 0.9% Normal Saline (1000mL) 1,000 ML 100 ML IV (15:20)
--- NOTE | 2024-04-09 15:20 | RAD_ITS ---
STUDY: X-RAY CHEST REASON FOR EXAM: Male, 78 years old. Neuro deficit, acute, stroke suspected TECHNIQUE: Single AP portable view of the chest. COMPARISON: Comparison is made with prior study of February 06, 2023. FINDINGS: EKG electrodes are seen. The lungs are clear and expanded. There is no demonstrated pleural abnormality. There is moderate cardiac enlargement. Normal mediastinum and gonzalo. Normal visualized pulmonary arteries. There is atherosclerotic calcification of the aortic arch with tortuosity. There are diffuse degenerative changes of the visualized thoracic spine. Normal visualized ribs, clavicles, and shoulders. There is no demonstrated abnormality of the visualized soft tissue structures of the upper abdomen. RAD/Chest 1 View IMPRESSION: Cardiomegaly. The lungs are clear. Electronically Signed: Benji Flor MD at 15:28 EDT ,
--- NOTE | 2024-04-09 15:21 | CM.ED ---
Social Work SW responded to stroke alert. Met pt's , Kellen Leavitt, and neighbor, Liza, at triage to escort to pt's room. Introduced self and role. Will return when appropriate to provide support and answer any questions. -- SW presented to room. RN remained present but agreed to SW visit. SW introduced self and role to pt. SW offered support to whom noticed pt's change in condition and called 911. appeared in no extreme distress, and referred her neighbor for support. stated when you're the only one, you have to be strong. SW acknowledged and offered this incident can be overwhelming and emotional. assured this worker she is okay. was sharing some home details and pt having two siblings that are not local or can assist. SW explored history and PLOF. stated he had garbled speech for the past two days. explained pt has hx of Parkinson's and Dementia and she has been caring for pt with all IADLs. just underwent left shoulder surgery on Saturday 04/07 and will have months of recovery. SW assured and pt will have assistance from nursing staff and social work staff for discharge planning and support. expressed she will likely need help 22/04. SW agreed and reiterated ongoing assistance. appreciative. Danielle Ruiz, TUCKER DELGADILLOW
--- NOTE | 2024-04-09 15:52 | PCM.HP.STD ---
HPI - General General Date of Admission: 04/09/24 Date of Service: 05/06/24 Chief Complaint: Right-sided facial droop and right-sided weakness HPI Narrative RALF BORRERO, is a 78 M was brought by EMS after he was found fallen on the backyard. As per the , he has been confused, talking irrelevant, staring blank look for last 2 weeks. EMS found him on the backyard with sweating profusely, right-sided facial droop and right-sided weakness. Prehospital stroke alert was called. EMS vitals were within normal limit. In ED, history was mainly taken from patient's and 's friend. Patient has aphasia and poor informant after discussion with the [facility] stroke doctor, patient was given tenecteplase. NIH stroke scale 12. Twelve-lead EKG ordered. Patient has history of A-fib and Parkinson disease. Patient is further admitted in ICU. [facility] Medical History History of prostate cancer HLD (hyperlipidemia) HTN (hypertension) Dementia Atrial fibrillation Sleep apnea Parkinson disease Home Medications ?Medication ?Instructions ?Recorded ?Last Taken ?Type carbidopa 25 mg-levodopa 250 mg 1 tab PO TID 08/09/22 Unknown History tablet furosemide 20 mg tablet 20 mg PO DAILY 08/09/22 Unknown History memantine 10 mg tablet 10 mg PO BID 08/09/22 Unknown History potassium chloride 20 mEq 20 meq PO DAILY 02/06/23 Unknown History tablet,extended release donepezil 5 mg tablet 5 mg PO QHS 04/09/24 Unknown History entacapone 200 mg tablet 200 mg PO TID 04/09/24 Unknown History losartan 50 mg tablet 50 mg PO DAILY 04/09/24 Unknown History omeprazole 20 mg capsule,delayed 20 mg PO DAILY 04/09/24 Unknown History release Allergy/AdvReac Type Severity Reaction Status Date / Time No Known Allergies Allergy Verified 04/09/24 15:56 Family History Mother Alzheimer disease Surgical History History of inguinal hernia repair History of arthroscopy of both knees History of tonsillectomy and adenoidectomy History of ankle surgery H/O prostatectomy H/O cardiac radiofrequency ablation Social History household members: spouse Smoking Status: Never smoker alcohol intake: current alcohol intake frequency: a few times a week substance use type: does not use ROS ROS Narrative ROS as collected from patient's . Patient bowel movement is regular. Urine has been dark and is stinky. No fever. Garbled speech for last 2 weeks, confused and disoriented Patient was admitted in rehab for 1 month in [place] after he had infection probably UTI. At home, not doing well with bilateral lower extremity swelling for 5 to 6 months Complete 14 system ROS unobtainable. Review of Systems ROS Unobtainable: due to encephalopathy and due to mental status Vital Signs Vital Signs Vital Signs: 04/09/24 14:08 04/09/24 14:09 04/09/24 14:29 Temperature Temperature Source Pulse Rate 79 70 Respiratory Rate 15 16 Blood Pressure 128/68 H 110/66 Blood Pressure Mean 88 80 Blood Pressure Source Blood Pressure Position Blood Pressure Location Pulse Ox 92 94 Oxygen Delivery Method Room Air Room Air Room Air 04/09/24 14:31 04/09/24 14:38 04/09/24 14:46 Temperature 97.8 F 97.8 F Temperature Source Temporal Temporal Pulse Rate 75 78 Respiratory Rate 16 16 Blood Pressure 128/68 H 128/68 H 139/70 H Blood Pressure Mean 88 93 Blood Pressure Source Monitor Monitor Blood Pressure Position Semi-Fowlers Semi-Fowlers Blood Pressure Location Right Arm Right Arm Pulse Ox 93 94 Oxygen Delivery Method Room Air Room Air 04/09/24 14:54 04/09/24 15:01 04/09/24 15:16 Temperature 97.8 F 97.8 F 98.5 F Temperature Source Temporal Temporal Oral Pulse Rate 70 80 79 Respiratory Rate 16 16 13 Blood Pressure 110/66 150/70 H 151/71 H Blood Pressure Mean 80 96 97 Blood Pressure Source Monitor Monitor Blood Pressure Position Semi-Fowlers Semi-Fowlers Blood Pressure Location Right Arm Right Arm Pulse Ox 94 95 95 Oxygen Delivery Method Room Air Room Air Room Air 04/09/24 15:31 04/09/24 15:40 Temperature 98.5 F 98.5 F Temperature Source Oral Pulse Rate 84 84 Respiratory Rate 17 17 Blood Pressure 149/77 H 149/77 H Blood Pressure Mean 101 101 Blood Pressure Source Monitor Blood Pressure Position Semi-Fowlers Blood Pressure Location Right Arm Pulse Ox 94 94 Oxygen Delivery Method Room Air Weight Weight: 181 lb 14.102 oz Body Mass Index (BMI) 27.6 Physical Exam Narrative General: Awake, confusion, disoriented. HEENT: Atraumatic, PERRLA, EOMI, Normocephalic Oral: No Gingival or Mucosal Lesions/ Ulcerations Neck: Supple, No JVD, Negative Carotid Bruits Chest wall/Lungs: Air entry diminished in bilateral lung bases. No crepitation/rhonchi Cardiovascular: Regular rate, Regular Rhythm, Normal S1, Normal S2, No M/G/R Abdomen: Bowel Sounds Present, Soft, Non Tender, Non-Distended : No dysuria. No renal angle tenderness. No suprapubic tenderness. Extremities: No edema, Capillary Refill Less than 3 Seconds Skin: No rashes, No breakdown Musculoskeletal: No Tenderness to Palpation of Joints or Extremities. Patient can keep both lower extremities for 5 seconds upper extremities for 10 seconds. Neurological: Right-sided facial droop, language deficit, severe aphasia, severe dysarthria, NIH stroke scale 7 Psych/Mental Status: Flat affect Results Lab / Micro Data 04/09/24 13:44 04/09/24 13:44 Labs: Laboratory Results - last 24 hr 04/09/24 13:44: WBC 4.2 L, RBC 3.94 L, Hgb 11.8 L, Hct 36.6 L, MCV 92.9, MCH 29.9, MCHC 32.2, RDW Std Deviation 52.7 H, RDW Coeff of Jessica 15.4 H, Plt Count 202, MPV 9.9, Immature Gran % (Auto) 0.000, Neut % (Auto) 69.2, Lymph % (Auto) 14.9 L, Knox % (Auto) 9.6, Eos % (Auto) 5.8 H, Baso % (Auto) 0.5, Absolute Neuts (auto) 2.9, Absolute Lymphs (auto) 0.62 L, Nucleated RBC % 0, PT 14.4, INR 1.1, APTT 30.4, Sodium 141, Potassium 4.3, Chloride 108 H, Carbon Dioxide 29.0, Anion Gap 4 L, BUN 30 H, Creatinine 1.01, Estim Creat Clear Calc 63.13, Est GFR (MDRD) Af Amer 92, Est GFR (MDRD) Non-Af 76, BUN/Creatinine Ratio 29.7 H, Glucose 97, Calcium 9.4, Troponin I High Sens 17 Imaging Radiology Impression Brain CT 04/09/24 14:08 IMPRESSION: Chronic involutional changes of the brain. N.B. : The above Results were Read Back by Benji Flor MD to Dr Ian DO, and understanding confirmed on 04/09/2024 14:20:25 (ET). Electronically Signed: Benji Flor MD at 14:22 EDT , ADDENDUM: 04/09/24 1429 IMPRESSION: Chronic involutional changes of the brain. N.B. : The above Results were Read Back by Benji Flor MD to Dr Ian DO, and understanding confirmed on 04/09/2024 14:20:25 (ET). Electronically Signed: Benji Flor MD at 14:22 EDT , Head/Neck CTA 04/09/24 14:12 IMPRESSION: Normal CTA Head and neck with contrast. N.B. : The above Results were Read Back by Benji Flor MD to Angel Briones and understanding confirmed on 04/09/2024 14:34:04 (ET). Electronically Signed: Benji Flor MD at 14:35 EDT , ADDENDUM: 04/09/24 1442 IMPRESSION: Normal CTA Head and neck with contrast. N.B. : The above Results were Read Back by Benji Flor MD to Angel Briones and understanding confirmed on 04/09/2024 14:34:04 (ET). Electronically Signed: Benji Flor MD at 14:35 EDT , Chest X-Ray 04/09/24 15:20 IMPRESSION: Cardiomegaly. The lungs are clear. Electronically Signed: Benji Flor MD at 15:28 EDT , Assessment & Plan Assessment/Plan (1) Stroke: PLAN: Plan This 70-year-old gentleman being admitted for right-sided weakness, confusion, aphasia and dysarthria consistent with a stroke status post tenecteplase 1. Acute ischemic stroke status post tenecteplase: Patient is being admitted in the ICU. He was given tenecteplase in the ED after clinical features consistent with stroke and discussion with [facility] neurologist, Dr. Whitaker. CTA head and neck reported normal. CT brain showed chronic involutional changes. Chest x-ray lungs clear and cardiomegaly. PT, OT, speech therapy/swallow evaluation and management, nursing NIH stroke scale, BP and glucose monitoring and control as per stroke protocol. TSH, A1c fasting lipid profile tomorrow AM. MRI brain after 24 hours of tenecteplase and 2D echo with bubble contrast study ordered. No baby aspirin after MRI is done. High intensity atorvastatin ordered. Keep n.p.o. until he clears nursing swallow screen. 2. Acute encephalopathy for about 2 weeks: Exact etiology unclear possible differential metabolic, stroke, undetermined: UA with urine culture ordered. 3. Parkinson's disease: Patient on carbidopa levodopa and entacapone. Continue after nursing swallow screen. 4. Possible paroxysmal A-fib: Twelve-lead EKG ordered. Patient not on anticoagulant at home. 5. Hypertension: Patient on losartan 50 mg daily. Patient also on furosemide 20 mg daily, unclear about its indication. Last echo from July 2022 shows EF 60% with no evidence of diastolic dysfunction. Left atrium mildly enlarged. 6. Other comorbidities include GERD, dementia: Patient on donezepil and memantine. Will hold it. Continue PPI Living will/advanced directive/end of life care: Patient does have living will or advanced directive at home but is not signed. After discussion of benefits/risks procedures involved with full code, DNR CC arrest and DNR CC, the patient's is not clear about the CODE STATUS but want full code for now until she looks at the paper and will change accordingly the patient's does want artificial life support including intubation, tube feed, ventilator and/chest compression, central venous catheter, vasopressor and DC shock if needed Total time spent in [id number] encounter in discussion of advanced directive 17 minutes. Echo July 2022. Interpretation Summary The estimated ejection fraction is 60 %. No evidence for diastolic dysfunction. The left atrium is mildly enlarged. Laboratory Results 04/09/24 13:44: WBC 4.2 L, RBC 3.94 L, Hgb 11.8 L, Hct 36.6 L, MCV 92.9, MCH 29.9, MCHC 32.2, RDW Std Deviation 52.7 H, RDW Coeff of Jessica 15.4 H, Plt Count 202, MPV 9.9, Immature Gran % (Auto) 0.000, Neut % (Auto) 69.2, Lymph % (Auto) 14.9 L, Knox % (Auto) 9.6, Eos % (Auto) 5.8 H, Baso % (Auto) 0.5, Absolute Neuts (auto) 2.9, Absolute Lymphs (auto) 0.62 L, Nucleated RBC % 0, PT 14.4, INR 1.1, APTT 30.4, Sodium 141, Potassium 4.3, Chloride 108 H, Carbon Dioxide 29.0, Anion Gap 4 L, BUN 30 H, Creatinine 1.01, Estim Creat Clear Calc 63.13, Est GFR (MDRD) Af Amer 92, Est GFR (MDRD) Non-Af 76, BUN/Creatinine Ratio 29.7 H, Glucose 97, Calcium 9.4, Troponin I High Sens 17 04/09/24 15:14: Urine Color Pending, Urine Clarity Pending, Urine pH Pending, Ur Specific [place] Pending, Urine Protein Pending, Urine Glucose (UA) Pending, Urine Ketones Pending, Urine Occult Blood Pending, Urine Nitrite Pending, Urine Bilirubin Pending, Urine Urobilinogen Pending, Ur Leukocyte Esterase Pending, Urine RBC Pending, Urine WBC Pending, Ur Squamous Epith Cells Pending, Urine Bacteria Pending, Urine Mucus Pending Clinical Impression(s) from Imaging Studies Brain CT 04/09/24 14:08 IMPRESSION: Chronic involutional changes of the brain. N.B. : The above Results were Read Back by Benji Flor MD to Dr Ian DO, and understanding confirmed on 04/09/2024 14:20:25 (ET). Electronically Signed: Benji Flor MD at 14:22 EDT , ADDENDUM: 04/09/24 1429 IMPRESSION: Chronic involutional changes of the brain. N.B. : The above Results were Read Back by Benji Flor MD to Dr Ian DO, and understanding confirmed on 04/09/2024 14:20:25 (ET). Electronically Signed: Benji Flor MD at 14:22 EDT , Head/Neck CTA 04/09/24 14:12 IMPRESSION: Normal CTA Head and neck with contrast. Electronically Signed: Benji Flor MD at 14:35 EDT , Chest X-Ray 04/09/24 15:20 IMPRESSION: Cardiomegaly. The lungs are clear. Electronically Signed: Benji Flor MD at 15:28 EDT , Charges/Coding Visit Charges Inpatient E&M: 44047 Init Hosp L3 Procedures Hospitalists Procedures: 99079 Advncd Care Plan 30 Min
[2024-04-09 15:53] LABS: Color, Urine Yellow (Yellow); Glucose, Dipstick Normal (Normal); Ketone-Dipstick 5 mg/dl (Negative); Leukocyte Esterase-Dipstick 25 /ul (Negative); Nitrite-Dipstick Negative (Negative); Occult Blood-Urine Negative /ul (Negative); Protein-Dipstick Negative (Negative); Specific Gravity, Urine 1.015 (1.002-1.030); Urine Bilirubin Dipstick Negative (Negative); Urine Clarity Clear (Clear); Urine Urobilinogen Normal (Normal); Urine pH 6.5 (5.0 - 8.0)
[2024-04-09 16:20] LABS: Bacteria 1+ /hpf (None Seen); Hyaline Cast 0-5 SEEN /lpf (0-5); Renal Epithelial Cells 0-5 SEEN /hpf (0-5); Squamous Epithelial Cells - UA 0-5 SEEN /hpf (0-5); White Blood Cells 0-5 SEEN /hpf (0-5)
[2024-04-09 18:50] LABS: Bedside Glucose 81 mg/dL (74-106)
[2024-04-09 19:20] LABS: Phosphorus 2.6 mg/dL (2.5-4.9)
[2024-04-09] MEDS: Atorvastatin Calcium 40 MG Tablet PO (22:39)
[2024-04-09] MEDS: Carbidopa/Levodopa 25/250 Tablet PO (22:39)
[2024-04-10] VITALS (27 sets, daily range): BP systolic 86–142; BP diastolic 51–90; PULSE 64–77; RESP 13–18; TEMP 36.4–36.9; O2SAT 93–100; BMI 27.4; BMI 27.5
[2024-04-10 00:26] LABS: Bedside Glucose 79 mg/dL (74-106)
[2024-04-10] MEDS: 0.9% Normal Saline (1000mL) 1,000 ML 100 ML IV ×2 (01:20→10:21)
[2024-04-10] MEDS: Carbidopa/Levodopa 25/250 Tablet PO ×3 (06:32→21:55)
[2024-04-10 06:47] LABS: Bedside Glucose 90 mg/dL (74-106)
[2024-04-10 08:07] LABS: Absolute Lymphocyte Count 0.73 X10^3/uL (0.83-4.51); Absolute Neutrophil Count 3.1 X10^3/uL (2.0-7.7); Basophil# 0.02 X10^3/uL; Basophil% 0.4 % (0-1); Eosinophil# 0.18 X10^3/uL; Hematocrit 28.7 % (40-54); Hemoglobin 9.3 g/dL (13.0-16.5); Lymphocyte # 0.73 X10^3/ul (0.83-4.51); Lymphocyte % 16.3 % (19-41); Mean Corp Hgb Conc 32.4 g/dL (32-36); Mean Corpuscular Hgb 30.5 pg (27.0-32.0); Mean Corpuscular Volume 94.1 fL (80-94); Mean Platelet Vol. 9.9 fl (6.2-12.0); Monocyte# 0.47 X10^3/uL; Monocyte% 10.5 % (0-10); NRBC Flagged by Analyzer 0 % (0-5); Neutrophil # 3.07 X10^3/uL (2.7-7.7); Neutrophil % 68.6 % (47-70); Platelet Count 173 K/mm3 (150-450); RBC Distribution Width CV 15.9 % (11.6-14.6); RBC Distribution Width SD 54.8 fl (35.1-43.9); Red Blood Count 3.05 M/mm3 (4.6-6.2); White Blood Count 4.5 K/mm3 (4.4-11.0)
[2024-04-10 08:34] LABS: Anion Gap 1 (5-15); BUN 25 mg/dL (7-18); BUN/Creat Ratio 30.6 RATIO (10-20); Calcium,Total 8.4 mg/dL (8.5-10.1); Chloride 109 mmol/L (98-107); Cholesterol 142 mg/dL (200); Creatinine, Serum 0.82 mg/dL (0.70-1.30); EST Glomerular Filtration Rate 97 mL/min (>60); Est Glom Filt Rate - Afr Amer 117 mL/min (>60); Estimated Creatinine Clearance 77.71 ml/min; Glucose 89 mg/dL (74-106); High Density Lipoprotein 63 mg/dL; Potassium 3.8 mmol/L (3.5-5.1); Sodium Level 141 mmol/L (136-145); Thyroid Stim Hormone (TSH) 2.21 uIU/mL (0.358-3.74); Triglycerides 83 mg/dL; Very Low Density Lipoprotein 17 mg/dL (5-40)
[2024-04-10] MEDS: Pantoprazole Sodium 40 MG Tablet PO (09:20)
[2024-04-10] MEDS: 0.9% Saline Lock 10 ML Syringe IV ×2 (10:20→21:57)
--- NOTE | 2024-04-10 10:25 | PCMCONS.TICU ---
HPI Consult Data Date of Consult: 04/11/24 HPI Narrative HPI Narrative: RALF BORRERO, is a 78 M who presents [facility] Medical History (Updated 04/10/24 @ 15:[address] Ed Aaron DO) History of prostate cancer HLD (hyperlipidemia) HTN (hypertension) Dementia Atrial fibrillation Sleep apnea Parkinson disease Home Medications ?Medication ?Instructions ?Recorded ?Last Taken ?Type carbidopa 25 mg-levodopa 250 mg 1 tab PO TID 08/09/22 Unknown History tablet furosemide 20 mg tablet 20 mg PO DAILY 08/09/22 Unknown History memantine 10 mg tablet 10 mg PO BID 08/09/22 Unknown History potassium chloride 20 mEq 20 meq PO DAILY 02/06/23 Unknown History tablet,extended release donepezil 5 mg tablet 5 mg PO QHS 04/09/24 Unknown History entacapone 200 mg tablet 200 mg PO TID 04/09/24 Unknown History losartan 50 mg tablet 50 mg PO DAILY 04/09/24 Unknown History omeprazole 20 mg capsule,delayed 20 mg PO DAILY 04/09/24 Unknown History release Allergy/AdvReac Type Severity Reaction Status Date / Time No Known Allergies Allergy Verified 04/09/24 15:56 Family History Mother Alzheimer disease Surgical History History of inguinal hernia repair History of arthroscopy of both knees History of tonsillectomy and adenoidectomy History of ankle surgery H/O prostatectomy H/O cardiac radiofrequency ablation Social History household members: spouse Smoking Status: Unknown if ever smoked alcohol intake: current alcohol intake frequency: a few times a week substance use type: does not use Objective Data Objective Data Vital Signs: Vital Signs Last response Temperature 36.6 C 04/10/24 10:01 Temperature Source Temporal 04/10/24 10:01 Pulse Rate 69 04/10/24 10:01 Respiratory Rate 16 04/10/24 10:01 Respiratory Effort Normal, Non-Labored 04/10/24 08:00 Respiratory Depth Normal 04/10/24 08:00 Respiratory Pattern Normal 04/10/24 08:00 Blood Pressure 108/60 04/10/24 10:01 Blood Pressure Mean 76 04/10/24 10:01 Blood Pressure Source Monitor 04/10/24 10:01 Blood Pressure Position Semi-Fowlers 04/10/24 10:01 Blood Pressure Location Right Arm 04/10/24 10:01 Pulse Ox 98 04/10/24 10:01 Oxygen Delivery Method Room Air 04/10/24 10:01 I&O: I&O Last 24 Hours 04/09/24 04/09/24 04/10/24 11:59 23:59 11:59 Intake Total 0 / 0 2381.67 / 2381.67 Output Total 400 / 650 500 / 500 Balance -400 / -650 1881.67 / 1881.67 I&O: Total Stay 04/09/24 14:05 thru 04/10/24 10:21 Intake Total 2381.67 Output Total 900 Balance 1481.67 Current Meds Ordered / Administered: Current meds ordered / Administered Generic Name Dose Route Start Last Admin Trade Name Freq PRN Reason Stop Dose Admin Acetaminophen 650 mg 04/09/24 17:37 Acetaminophen 325 Mg Tablet PO Q4H PRN PRN Pain 1-10 Or Fever >99.6 Atorvastatin Calcium 40 mg 04/09/24 22:00 04/09/24 22:39 Atorvastatin Calcium 40 Mg Tablet PO 40 mg QHS ESTHELA Administration Carbidopa/Levodopa 1 tablet 04/09/24 22:00 04/10/24 06:32 Carbidopa/Levodopa 25/250 Tablet PO 1 tablet TID ESTHELA Administration Diphenhydramine HCl 50 mg 04/09/24 14:31 Diphenhydramine 50 Mg/Ml Syringe IV 04/10/24 14:31 X1 PRN Allergic Reaction Entacapone 200 mg 04/09/24 22:00 04/10/24 06:32 Entacapone 200 Mg Tablet PO 200 mg TID ESTHELA Administration Epinephrine HCl 0.3 mg 04/09/24 14:31 Epi Pen (Equiv) 0.3 Mg Syringe IM 04/10/24 14:31 X1 PRN Allergic Reaction Nicardipine/Sodium Chloride 20 mg in 200 mls @ 50 mls/hr 04/09/24 14:31 Cardene-Abelardo 20 Mg/200 Ml Soln CONT INF 04/10/24 14:31 Q4H PRN See Instructions Protocol 5 MG/HR Sodium Chloride 1,000 mls @ 100 mls/hr 04/09/24 14:35 04/10/24 10:21 IV 100 mls/hr .Q10H ESTHELA Administration Labetalol HCl 20 mg 04/09/24 14:08 Labetalol (Prefilled) 20 Mg/4 Ml IV 04/10/24 14:08 X1 PRN Blood Pressure Labetalol HCl 20 mg 04/09/24 14:31 Labetalol (Prefilled) 20 Mg/4 Ml IV 04/10/24 14:31 X1 PRN BLOOD PRESSURE Labetalol HCl 20 mg 04/09/24 17:37 Labetalol (Prefilled) 20 Mg/4 Ml IV 04/10/24 17:37 X1 PRN BP Goals Methylprednisolone 125 mg 04/09/24 14:31 Methylprednisolone 125 Mg/2 Ml Vial IV 04/10/24 14:31 X1 PRN Allergic Reaction Pantoprazole Sodium 40 mg 04/10/24 10:00 04/10/24 09:20 Pantoprazole Sodium 40 Mg Tablet PO 40 mg DAILY ESTHELA Administration Sodium Chloride 10 ml 04/09/24 17:37 0.9% Saline Lock 10 Ml Syringe IV UD PRN Before/After Tenecteplase Administration Sodium Chloride 10 - 40 ml 04/09/24 17:57 04/10/24 10:20 0.9% Saline Lock 10 Ml Syringe IV 20 ml UD PRN Administration SALINE FLUSH Lab / Micro Data 04/11/24 03:05 04/10/24 07:55 Labs: Laboratory Results - last 24 hr 04/09/24 13:44: WBC 4.2 L, RBC 3.94 L, Hgb 11.8 L, Hct 36.6 L, MCV 92.9, MCH 29.9, MCHC 32.2, RDW Std Deviation 52.7 H, RDW Coeff of Jessica 15.4 H, Plt Count 202, MPV 9.9, Immature Gran % (Auto) 0.000, Neut % (Auto) 69.2, Lymph % (Auto) 14.9 L, [place] % (Auto) 9.6, Eos % (Auto) 5.8 H, Baso % (Auto) 0.5, Absolute Neuts (auto) 2.9, Absolute Lymphs (auto) 0.62 L, Nucleated RBC % 0, PT 14.4, INR 1.1, APTT 30.4, Sodium 141, Potassium 4.3, Chloride 108 H, Carbon Dioxide 29.0, Anion Gap 4 L, BUN 30 H, Creatinine 1.01, Estim Creat Clear Calc 63.13, Est GFR (MDRD) Af Amer 92, Est GFR (MDRD) Non-Af 76, BUN/Creatinine Ratio 29.7 H, Glucose 97, Calcium 9.4, Phosphorus 2.6, Magnesium 2.0, Troponin I High Sens 17 04/09/24 15:14: Urine Color Yellow, Urine Clarity Clear, Urine pH 6.5, Ur Specific [place] 1.015, Urine Protein Negative, Urine Glucose (UA) Normal, Urine Ketones 5 H, Urine Occult Blood Negative, Urine Nitrite Negative, Urine Bilirubin Negative, Urine Urobilinogen Normal, Ur Leukocyte Esterase 25 H, Urine RBC 0 SEEN, Urine WBC 0-5 SEEN, Ur Squamous Epith Cells 0-5 SEEN, Ur Renal Epithelial Cell 0-5 SEEN, Urine Bacteria 1+, Hyaline Casts 0-5 SEEN, Urine Mucus 0 SEEN 04/09/24 18:29: POC Glucose 81 04/10/24 00:08: POC Glucose 79 04/10/24 06:29: POC Glucose 90 04/10/24 07:55: WBC 4.5, RBC 3.05 L, Hgb 9.3 L, Hct 28.7 L, MCV 94.1 H, MCH 30.5, MCHC 32.4, RDW Std Deviation 54.8 H, RDW Coeff of Jessica 15.9 H, Plt Count 173, MPV 9.9, Immature Gran % (Auto) 0.200, Neut % (Auto) 68.6, Lymph % (Auto) 16.3 L, [place] % (Auto) 10.5 H, Eos % (Auto) 4.0, Baso % (Auto) 0.4, Absolute Neuts (auto) 3.1, Absolute Lymphs (auto) 0.73 L, Nucleated RBC % 0, Sodium 141, Potassium 3.8, Chloride 109 H, Carbon Dioxide 31.0, Anion Gap 1 L, BUN 25 H, Creatinine 0.82, Estim Creat Clear Calc 77.71, Est GFR (MDRD) Af Amer 117, Est GFR (MDRD) Non-Af 97, BUN/Creatinine Ratio 30.6 H, Glucose 89, Calcium 8.4 L, Triglycerides 83, Cholesterol 142, LDL Cholesterol 62, VLDL Cholesterol 17, HDL Cholesterol 63, TSH 2.21 Imaging Radiology Impression Brain CT 04/09/24 14:08 IMPRESSION: Chronic involutional changes of the brain. N.B. : The above Results were Read Back by Benji Flor MD to Dr Ian DO, and understanding confirmed on 04/09/2024 14:20:25 (ET). Electronically Signed: Benji Flor MD at 14:22 EDT , ADDENDUM: 04/09/24 1429 IMPRESSION: Chronic involutional changes of the brain. N.B. : The above Results were Read Back by Benji Flor MD to Dr Ian DO, and understanding confirmed on 04/09/2024 14:20:25 (ET). Electronically Signed: Benji Flor MD at 14:22 EDT , Head/Neck CTA 04/09/24 14:12 IMPRESSION: Normal CTA Head and neck with contrast. N.B. : The above Results were Read Back by Benji Flor MD to Angel Briones and understanding confirmed on 04/09/2024 14:34:04 (ET). Electronically Signed: Benji Flor MD at 14:35 EDT , ADDENDUM: 04/09/24 1442 IMPRESSION: Normal CTA Head and neck with contrast. N.B. : The above Results were Read Back by Benji Flor MD to Angel Briones and understanding confirmed on 04/09/2024 14:34:04 (ET). Electronically Signed: Benji Flor MD at 14:35 EDT , Chest X-Ray 04/09/24 15:20 IMPRESSION: Cardiomegaly. The lungs are clear. Electronically Signed: Benji Flor MD at 15:28 EDT , Assessment and Plan . Assessment and plan: 78 yo chronically ill and debilitated man admitted 04/09/24 w/ s/s concerning for acute CVA. He was apparently found on the ground at home, confused and with difficulty w/ speech. Seen in ED - CT and CTA unremarkable. He was evaluated by neurology and received IV t-PA. He is currently in the ICU for observation. He is awake and alert. He is hypoactive w/ poor verbalization. Grossly NF exam otherwise. MRI is pending, as well as further neurology evaluation. He has a h/o PAF - NSR currently. Physical Exam: Gen - NAD, awake and alert, but hypoactive and confused HEENT - MMM Resp - CTAB CV - RRR. No m/g/r Abd - Soft, NT, ND Ext - No c/c/e. Skin - No rashes? Neuro - grossly NF I have reviewed the pertinent vital sign, laboratory, and imaging data. ASSESSMENT: # Possible acute ischemic CVA # s/p IV t-PA in ED # PAF # Dementia PLAN: -follow exam -MRI pending -VTE ppx The entirety of this encounter was done via Telemedicine
--- NOTE | 2024-04-10 10:56 | CASEMGMT ---
Discharge Planning A list of?SNF providers including quality and resource use data and consistent with the patient's preferred geographic region, medical needs, and insurance network were provided via email from the [facility] Guide link. Carline Matute, Discharge Planning Asst.
--- NOTE | 2024-04-10 11:44 | NURSING ---
called answered mri questions. updated on poc.
--- NOTE | 2024-04-10 11:50 | CASEMGMT ---
Social Work SW met with pt and introduced self and role of SW. SW attempted to converse with pt. Pt is able to states his name, but unable to correctly identify where he is. Knows his wifes name, but thinks she is in [place] (pt and live in [place]). Pt mumbling and SW cannot understand much of what is said. PHQ9 not completed at this time due to cognition. SW?placed call to pt's Kellen for initial transition planning/care coordination?assessment.?SW?introduced self and role at [facility] [place] and Kellen is agreeable to complete assessment. Care providers, pharmacy, and demographics verified. PCP: Lydia Gibbons Specialists: Luigi, Waffle Machine Operator Shayy, Neurologist Preferred Pharmacy: [facility] Insurance: Medicare Prescription Benefit:?yes Living Will/HPOA:?no, pt's states they have paperwork at home but the documents have not been signed. Pt is not able to complete documents at this time due to cognitive impairment. LNOK: Kellen Leavitt. No children or other family Living Arrangements: Pt lives in a two story home with . Pt's bedroom and bathroom are on the second floor. Pt's is transitioning pt to the first floor. A bedroom has been set up and the bathroom is being remodeled and will be ready next for use. Pt's assists with all ADLs and IADLs. states that pt has frequent falls and has to pick him up off the floor. Pt's privately hires a physical therapy to come to the house every MWF for the last 3 years. Pt also hires a consumer affairs specialist who comes to the home Saturday, Saturday, Saturday from 8:15-4:00 and assists as needed. Transportation:?Pt does not drive. Pt's usually drives but has had shoulder surgery and is unable to drive currently. Neighbors has been assisting. DME: ?cane, [place] Wheeled Walker/Wheelchair, shower chair. New bathroom will have high rise toilet, walk in shower with shower chair and grab bars Cognition: Pt's reports pt baseline cognition has declined. Pt has a blank stair and zones out and then comes back to reality. states pt does have periods of confusion. PLAN: Pt just had shoulder surgery and states she cannot pick pt up from floor with shoulder in a sling. is requesting additional help in the home. She does have a list of private duty aids and SW explained that it often takes time to get aids set up. to start calling today. SW spoke with pt regarding short term SNF placement. Pt's feels this may be needed. SW explained that once pt is allowed out of bed and is evaluated by PT/OT, it will be more telling of pt's needs. is agreeable. A list of SNF providers including quality and resource use data and consistent with the patient?s preferred geographic region, medical needs, and insurance network were provided via the [employer] Guide Link. Pt to review list and make choices. SW will follow up once pt has had therapy. BERYL Moyer
--- NOTE | 2024-04-10 12:29 | PCM.PN.HOSP ---
Reason for Visit Reason for Visit: Diagnoses Cerebral infarction, unspecified (04/09/24) Subjective Subjective Saw patient at bedside this morning. Patient was sitting up in bed and appeared fairly comfortable. Patient was making appropriate eye contact with me but was not able to answer any questions appropriately for me. He appeared to be mumbling some answers but I was not able to make out what he was saying. Per nursing staff, he was able to tell them his name and date of but otherwise cannot give him any further information. Otherwise, no acute concerns this morning. Objective Data Objective Data Vital Signs: Vital Signs Temp Pulse Resp BP Pulse Ox O2 Del Method 98 F 70 15 117/77 98 Room Air 04/10/24 12:00 04/10/24 12:00 04/10/24 12:00 04/10/24 12:00 04/10/24 12:00 04/10/24 12:00 Oxygen Delivery Method Room Air Weight: 82.4 kg Body Mass Index (BMI) 27.5 Intake & Output: Intake and Output for Last 24 Hours 04/08/24 04/09/24 04/10/24 23:59 23:59 23:59 Intake Total 0 / 0 2621.67 / 2621.67 Output Total 400 / 650 600 / 600 Balance -400 / -650 2021.67 / 2021.67 Lab / Micro Data 04/10/24 07:55 04/10/24 07:55 Labs: Laboratory Results - last 24 hr 04/09/24 13:44: WBC 4.2 L, RBC 3.94 L, Hgb 11.8 L, Hct 36.6 L, MCV 92.9, MCH 29.9, MCHC 32.2, RDW Std Deviation 52.7 H, RDW Coeff of Jessica 15.4 H, Plt Count 202, MPV 9.9, Immature Gran % (Auto) 0.000, Neut % (Auto) 69.2, Lymph % (Auto) 14.9 L, [place] % (Auto) 9.6, Eos % (Auto) 5.8 H, Baso % (Auto) 0.5, Absolute Neuts (auto) 2.9, Absolute Lymphs (auto) 0.62 L, Nucleated RBC % 0, PT 14.4, INR 1.1, APTT 30.4, Sodium 141, Potassium 4.3, Chloride 108 H, Carbon Dioxide 29.0, Anion Gap 4 L, BUN 30 H, Creatinine 1.01, Estim Creat Clear Calc 63.13, Est GFR (MDRD) Af Amer 92, Est GFR (MDRD) Non-Af 76, BUN/Creatinine Ratio 29.7 H, Glucose 97, Calcium 9.4, Phosphorus 2.6, Magnesium 2.0, Troponin I High Sens 17 04/09/24 15:14: Urine Color Yellow, Urine Clarity Clear, Urine pH 6.5, Ur Specific [place] 1.015, Urine Protein Negative, Urine Glucose (UA) Normal, Urine Ketones 5 H, Urine Occult Blood Negative, Urine Nitrite Negative, Urine Bilirubin Negative, Urine Urobilinogen Normal, Ur Leukocyte Esterase 25 H, Urine RBC 0 SEEN, Urine WBC 0-5 SEEN, Ur Squamous Epith Cells 0-5 SEEN, Ur Renal Epithelial Cell 0-5 SEEN, Urine Bacteria 1+, Hyaline Casts 0-5 SEEN, Urine Mucus 0 SEEN 04/09/24 18:29: POC Glucose 81 04/10/24 00:08: POC Glucose 79 04/10/24 06:29: POC Glucose 90 04/10/24 07:55: WBC 4.5, RBC 3.05 L, Hgb 9.3 L, Hct 28.7 L, MCV 94.1 H, MCH 30.5, MCHC 32.4, RDW Std Deviation 54.8 H, RDW Coeff of Jessica 15.9 H, Plt Count 173, MPV 9.9, Immature Gran % (Auto) 0.200, Neut % (Auto) 68.6, Lymph % (Auto) 16.3 L, [place] % (Auto) 10.5 H, Eos % (Auto) 4.0, Baso % (Auto) 0.4, Absolute Neuts (auto) 3.1, Absolute Lymphs (auto) 0.73 L, Nucleated RBC % 0, Sodium 141, Potassium 3.8, Chloride 109 H, Carbon Dioxide 31.0, Anion Gap 1 L, BUN 25 H, Creatinine 0.82, Estim Creat Clear Calc 77.71, Est GFR (MDRD) Af Amer 117, Est GFR (MDRD) Non-Af 97, BUN/Creatinine Ratio 30.6 H, Glucose 89, Calcium 8.4 L, Triglycerides 83, Cholesterol 142, LDL Cholesterol 62, VLDL Cholesterol 17, HDL Cholesterol 63, TSH 2.21 Radiography Diagnostic Testing: Radiology Impression Brain CT 04/09/24 14:08 IMPRESSION: Chronic involutional changes of the brain. N.B. : The above Results were Read Back by Benji Flor MD to Dr Ian DO, and understanding confirmed on 04/09/2024 14:20:25 (ET). Electronically Signed: Benji Flor MD at 14:22 EDT , ADDENDUM: 04/09/24 1429 IMPRESSION: Chronic involutional changes of the brain. N.B. : The above Results were Read Back by Benji Flor MD to Dr Ian DO, and understanding confirmed on 04/09/2024 14:20:25 (ET). Electronically Signed: Benji Flor MD at 14:22 EDT , Head/Neck CTA 04/09/24 14:12 IMPRESSION: Normal CTA Head and neck with contrast. N.B. : The above Results were Read Back by Benji Flor MD to Angel Briones and understanding confirmed on 04/09/2024 14:34:04 (ET). Electronically Signed: Benji Flor MD at 14:35 EDT , ADDENDUM: 04/09/24 1442 IMPRESSION: Normal CTA Head and neck with contrast. N.B. : The above Results were Read Back by Benji Flor MD to Angel Briones and understanding confirmed on 04/09/2024 14:34:04 (ET). Electronically Signed: Benji Flor MD at 14:35 EDT , Chest X-Ray 04/09/24 15:20 IMPRESSION: Cardiomegaly. The lungs are clear. Electronically Signed: Benji Flor MD at 15:28 EDT , Physical Exam Const alert, no apparent distress and average body habitus Constitutional Narrative: Elderly male, sitting up in bed, making appropriate eye contact but not answering any questions for me, otherwise in no acute distress. General Appearance: cooperative and comfortable HEENT normocephalic, head/scalp atraumatic, hearing grossly normal bilaterally, nasal mucous membranes and turbinates normal and moist oral mucous membranes Eyes PERRL, EOMs intact bilaterally and conjunctivae normal Neck full ROM Chest inspection of chest normal Resp normal respiratory effort, normal air movement, no use of accessory muscles and clear to auscultation bilaterally Cardio regular rate, regular rhythm, no murmurs and peripheral pulses 2+ throughout GI normal to inspection, nondistended, normoactive bowel sounds, soft to palpation, non-tender and non-distended Back/Spine normal ROM Extremity normal to inspection and no pedal edema Skin no rashes or lesions noted Neuro moves all extremities Neuro Narrative: No overt neurologic deficits noted but difficult to calculate patient's NIH score given his history of dementia and suspected baseline level of cognitive dysfunction. Assessment & Plan Assessment/Plan (1) Stroke: (2) Hx of Parkinson's disease: (3) Dementia: (4) Anemia: PLAN: Plan Patient is a 78-year-old male who presented [facility] ED on 04/09/2024 with strokelike symptoms. 1. Concern for acute CVA; history of Parkinson's disease with concern for worsening dementia ? Neurology and liquid yeast supervisor following. Patient has known history of Parkinson's disease and dementia, lives at home with . found patient in yard with apparent right facial droop and slurring of speech and EMS brought him in as a stroke alert. NIH score was very high so he was given tenecteplase and then admitted to the ICU. CT brain and CTA head/neck in ED were unremarkable. notably did report 2 weeks of worsening symptoms for the patient prior to admission; unclear if acute CVA versus worsening Parkinson's disease with dementia leading to his symptoms. MRI brain ordered for this afternoon, will follow-up. PT/OT/case management following. Notably passed swallow study without issue. Continue home carbidopa-levodopa, entacapone, memantine and donepezil. If MRI brain negative for bleed, will plan to start aspirin tomorrow morning. Continue high intensity statin started on admission. Appreciate further neurology recommendations. 2. Acute on chronic anemia ? Hemoglobin 11.8 on admit, decreased to 9.3 on hospital day 2. No overt signs of bleeding noted, MRI brain pending as above. Iron studies with ferritin, B12 and folate normal. Continue to monitor daily CBC. Chronic medical conditions: ? GERD: Continue home PPI. ? Hypertension: Holding home losartan and Lasix for now, will restart when able. DVT prophylaxis: SCDs CODE STATUS: Full code, verified Expected disposition: TBD Total clinical time spent by myself addressing the patient's medical issues, reviewing all the data, and collaborating with patient's care team: 35 minutes. Charges/Coding Visit Charges Inpatient E&M: 76157 Subs Hosp L2
[2024-04-10 14:22] LABS: Vitamin B12 559 pg/mL (211-911)
--- NOTE | 2024-04-10 14:30 | MRI_ITS ---
EXAM: MR HEAD WITHOUT INTRAVENOUS CONTRAST CLINICAL INDICATION: CVA. Follow-up. MRI 24 hours after IV thrombolytic administration TECHNIQUE: Multiplanar and multisequence MR images of the brain were obtained without intravenous contrast. COMPARISON: MRI brain without contrast 08/09/2022. FINDINGS: BRAIN AND EXTRA-AXIAL SPACES: Faint T2 FLAIR hyperintensity foci in the subcortical white matter of the frontal lobes (series 6, image 16). They may be due to chronic white matter ischemic change. No intra- or extra-axial hemorrhage. No intracranial mass or mass effect. Posterior fossa structures are unremarkable. Ventricles are appropriate for age. No hydrocephalus. Basal cisterns are patent. No diffusion restriction to suspect acute or subacute ischemic infarct. No remote cortical-based ischemic infarct. SELLA: Unremarkable. Normal sella turcica, pituitary gland, infundibular stalk, optic chiasm and hypothalamus. AUDITORY SYSTEM: Unremarkable. The internal auditory canals are patent. BONES/JOINTS: Unremarkable. No discrete lytic or blastic abnormalities. SINUSES: Unremarkable as visualized. Clear. MASTOID AIR CELLS: Unremarkable as visualized. Clear. ORBITS: Unremarkable as visualized. Both globes, extraocular muscles, optic nerves and retrobulbar fat appear unremarkable. VASCULATURE: Unremarkable as visualized. Normal flow voids in the major intracranial circulation. MRI/Brain without Contrast IMPRESSION: 1. No MRI evidence of acute or subacute ischemic infarct or remote cortical-based ischemic infarct. 2. Subcortical white matter T2 FLAIR hyperintensity, one each in the frontal lobes. They''re presumably chronic white matter ischemic changes and unchanged. 3. No significant interval change when compared to 08/09/2022. Electronically Signed: Slade Zapien MD at 15:34 EDT ,
[2024-04-10 14:41] LABS: Ferritin 79 ng/mL (26-388); Iron 98 ug/dL (65-175); Iron Binding Capacity,Total 264 ug/dL (250-450); PERCENT IRON SATURATION 37.1 % (15.0-55.0)
[2024-04-10 16:19] LABS: Bedside Glucose 49 mg/dL (74-106)
[2024-04-10 16:19] LABS: Bedside Glucose 91 mg/dL (74-106)
[2024-04-10 17:02] LABS: Bedside Glucose 82 mg/dL (74-106)
--- NOTE | 2024-04-10 18:33 | NURSING ---
blood sugar of 49 at 1140 was inaccurate. was drawn out of iv line and diluted accurate blood sugar was 91 at 1142
--- NOTE | 2024-04-10 21:40 | NURSING ---
pt drowsy, fatigued during assessment, ff some commands, but not able to fully participate with NIH assessment . NIH score changed, blood sugar obtained and WNL 87. Notified MD about the change. Additional order added at this time.
--- NOTE | 2024-04-10 21:46 | PCM.HOSP.N ---
Hospitalist Note Patient with episodes of acting appropriately, being irritable, BS normal range, fights the staff when they attempt to open his eyes. Will not following NIHSS assessments but from review MRI today without acute CVA. From review of notes also was having periods of being awake but almost absent. Will add EEG to be cautious. Neurology following.
[2024-04-10] MEDS: Donepezil HCl 5 MG Tablet PO (21:55)
[2024-04-10] MEDS: Atorvastatin Calcium 40 MG Tablet PO (21:56)
[2024-04-10] MEDS: Memantine Hydrochloride 10 MG Tablet PO (21:57)
[2024-04-10 22:00] LABS: Bedside Glucose 87 mg/dL (74-106)
--- NOTE | 2024-04-10 22:00 | NURSING ---
when RN returned to pt room around 2152, pt a lot more alert and awake, eyes opened and conversational. Pt oriented to self at this time, took a sip of drink, and able to participate and ff more commands. Pt able to take PM meds, safely.
--- NOTE | 2024-04-10 22:34 | CON.PCM.NE_ITS ---
Assessment and Plan: Stroke Assessment/Plan RALF BORRERO III is a 78 M with a history of Parkinsons who presents for evaluation of left weakness and aphasia. Seen on tele by me and given TNK. Today stating He is at baseline. Neurological examination shows NIH 1. Neuroimaging shows CTH normal. MRI now complete. ANd is within normal. No acute infarct. This is likely worsening of his Parkinsons or deconditioning. Agree with aggressive PT/OT IMPRESSION: The patient's constellation of signs and symptoms and neuroimaging findings are most consistent with acute ischemic stroke. RECOMMENDATIONS: - Admit to Neurological intensive care unit - Post IVtPA order sets - Post- procedure CT brain - Order the following test for stroke evaluation: MRI brain ( stroke protocol), carotid ultrasounds, Transthoracic echocardiogram, holter monitor, fasting lipid panel, HgbA1c - Occupational/Physical therapy consult - DVT prophylaxis with SCDs and heparin SQ - NPO until swallow evaluation. IVF - Permissive hypertension to goal SBP < 140 mm Hg - Anti-platelet medication : Aspirin 81 mg daily - Vascular risk factor modification: - Hyperlipidemia: LDL Goal < 70 mg/dL - Smoking Cessation - Diabetes management HPI Consult Data Date of Consult: 04/10/24 HPI Narrative HPI Narrative: RALF BORRERO, is a 78 M who presents with fall and weakness. FOR[facility], [facility] Medical History (Updated 04/10/24 @ 15:[address] Ed Aaron, ) History of prostate cancer HLD (hyperlipidemia) HTN (hypertension) Dementia Atrial fibrillation Sleep apnea Parkinson disease Home Medications ?Medication ?Instructions ?Recorded ?Last Taken ?Type carbidopa 25 mg-levodopa 250 mg 1 tab PO TID 08/09/22 Unknown History tablet furosemide 20 mg tablet 20 mg PO DAILY 08/09/22 Unknown History memantine 10 mg tablet 10 mg PO BID 08/09/22 Unknown History potassium chloride 20 mEq 20 meq PO DAILY 02/06/23 Unknown History tablet,extended release donepezil 5 mg tablet 5 mg PO QHS 04/09/24 Unknown History entacapone 200 mg tablet 200 mg PO TID 04/09/24 Unknown History losartan 50 mg tablet 50 mg PO DAILY 04/09/24 Unknown History omeprazole 20 mg capsule,delayed 20 mg PO DAILY 04/09/24 Unknown History release Allergy/AdvReac Type Severity Reaction Status Date / Time No Known Allergies Allergy Verified 04/09/24 15:56 Family History Mother Alzheimer disease Surgical History History of inguinal hernia repair History of arthroscopy of both knees History of tonsillectomy and adenoidectomy History of ankle surgery H/O prostatectomy H/O cardiac radiofrequency ablation Social History household members: spouse Smoking Status: Unknown if ever smoked alcohol intake: current alcohol intake frequency: a few times a week substance use type: does not use Vital Signs Vital Signs Vital Signs: 04/09/24 23:01 04/10/24 00:00 04/10/24 00:01 Temperature 97.8 F Temperature Source Temporal Pulse Rate 70 65 65 Respiratory Rate 14 13 13 Respiratory Effort Respiratory Depth Respiratory Pattern Blood Pressure 103/53 L 94/51 L 94/51 L Blood Pressure Mean 69 65 65 Blood Pressure Source Monitor Monitor Monitor Blood Pressure Position Semi-Fowlers Semi-Fowlers Semi-Fowlers Blood Pressure Location Right Arm Left Arm Right Arm Pulse Ox 96 93 93 Oxygen Delivery Method Room Air Room Air Room Air 04/10/24 01:01 04/10/24 01:48 04/10/24 02:01 Temperature 97.9 F Temperature Source Temporal Pulse Rate 65 64 Respiratory Rate 14 14 Respiratory Effort Normal Non-Labored Respiratory Depth Normal Respiratory Pattern Normal Blood Pressure 86/51 L 107/59 L Blood Pressure Mean 62 75 Blood Pressure Source Monitor Monitor Blood Pressure Position Semi-Fowlers Semi-Fowlers Blood Pressure Location Right Arm Right Arm Pulse Ox 95 96 Oxygen Delivery Method Room Air Room Air Room Air 04/10/24 03:01 04/10/24 03:10 04/10/24 04:00 Temperature 97.8 F 97.5 F L Temperature Source Temporal Temporal Pulse Rate 68 68 Respiratory Rate 14 14 Respiratory Effort Normal Non-Labored Respiratory Depth Normal Respiratory Pattern Normal Blood Pressure 113/66 105/60 Blood Pressure Mean 81 75 Blood Pressure Source Monitor Monitor Blood Pressure Position Semi-Fowlers Semi-Fowlers Blood Pressure Location Right Arm Right Arm Pulse Ox 97 98 Oxygen Delivery Method Room Air Room Air Room Air 04/10/24 04:01 04/10/24 05:01 04/10/24 06:01 Temperature 98.1 F 97.8 F 97.8 F Temperature Source Temporal Temporal Temporal Pulse Rate 67 72 72 Respiratory Rate 16 16 16 Respiratory Effort Respiratory Depth Respiratory Pattern Blood Pressure 115/64 136/67 H 133/62 H Blood Pressure Mean 81 90 85 Blood Pressure Source Monitor Monitor Monitor Blood Pressure Position Semi-Fowlers Semi-Fowlers Semi-Fowlers Blood Pressure Location Right Arm Right Arm Right Arm Pulse Ox 97 96 96 Oxygen Delivery Method Room Air Room Air Room Air 04/10/24 07:01 04/10/24 07:25 04/10/24 08:00 Temperature 97.8 F Temperature Source Temporal Pulse Rate 67 Respiratory Rate 16 Respiratory Effort Normal Non-Labored Respiratory Depth Normal Respiratory Pattern Normal Blood Pressure 104/69 Blood Pressure Mean 80 Blood Pressure Source Monitor Blood Pressure Position Semi-Fowlers Blood Pressure Location Right Arm Pulse Ox 96 96 Oxygen Delivery Method Room Air Room Air Room Air 04/10/24 08:01 04/10/24 09:01 04/10/24 10:01 Temperature 97.8 F 97.9 F Temperature Source Temporal Temporal Pulse Rate 64 67 69 Respiratory Rate 15 15 16 Respiratory Effort Respiratory Depth Respiratory Pattern Blood Pressure 93/52 L 95/51 L 108/60 Blood Pressure Mean 65 65 76 Blood Pressure Source Monitor Monitor Monitor Blood Pressure Position Semi-Fowlers Semi-Fowlers Semi-Fowlers Blood Pressure Location Right Arm Right Arm Right Arm Pulse Ox 94 95 98 Oxygen Delivery Method Room Air Room Air Room Air 04/10/24 11:01 04/10/24 12:00 04/10/24 13:01 Temperature 98.4 F 98 F 98 F Temperature Source Temporal Temporal Temporal Pulse Rate 65 70 71 Respiratory Rate 13 15 17 Respiratory Effort Respiratory Depth Respiratory Pattern Blood Pressure 114/59 L 117/77 128/86 H Blood Pressure Mean 77 90 100 Blood Pressure Source Monitor Monitor Monitor Blood Pressure Position Semi-Fowlers Semi-Fowlers Semi-Fowlers Blood Pressure Location Right Arm Right Arm Right Arm Pulse Ox 96 98 97 Oxygen Delivery Method Room Air Room Air Room Air 04/10/24 13:06 04/10/24 14:01 04/10/24 14:40 Temperature 98.1 F Temperature Source Temporal Pulse Rate 73 74 Respiratory Rate 15 16 Respiratory Effort Normal Non-Labored Respiratory Depth Normal Respiratory Pattern Normal Blood Pressure 118/77 142/85 H Blood Pressure Mean 90 104 Blood Pressure Source Monitor Monitor Blood Pressure Position Semi-Fowlers Supine Blood Pressure Location Right Arm Left Arm Pulse Ox 96 95 Oxygen Delivery Method Room Air Room Air Room Air 04/10/24 14:50 04/10/24 15:00 04/10/24 15:20 Temperature 98.1 F Temperature Source Temporal Pulse Rate 72 74 74 Respiratory Rate 16 16 14 Respiratory Effort Respiratory Depth Respiratory Pattern Blood Pressure 117/57 L 138/62 H 142/83 H Blood Pressure Mean 77 87 102 Blood Pressure Source Monitor Monitor Monitor Blood Pressure Position Supine Supine Semi-Fowlers Blood Pressure Location Left Arm Left Arm Right Arm Pulse Ox 94 94 98 Oxygen Delivery Method Room Air Room Air Room Air 04/10/24 16:00 04/10/24 16:28 04/10/24 17:15 Temperature 98.2 F Temperature Source Temporal Pulse Rate 68 74 Respiratory Rate 16 14 Respiratory Effort Normal Non-Labored Respiratory Depth Normal Respiratory Pattern Normal Blood Pressure 98/58 L 110/69 Blood Pressure Mean 71 82 Blood Pressure Source Monitor Monitor Blood Pressure Position Sitting Sitting Blood Pressure Location Right Arm Right Arm Pulse Ox 95 100 Oxygen Delivery Method Room Air Room Air Room Air 04/10/24 18:00 04/10/24 21:28 Temperature 97.9 F Temperature Source Temporal Pulse Rate 77 71 Respiratory Rate 14 17 Respiratory Effort Respiratory Depth Respiratory Pattern Blood Pressure 125/90 H 128/71 H Blood Pressure Mean 101 90 Blood Pressure Source Monitor Monitor Blood Pressure Position Sitting Semi-Fowlers Blood Pressure Location Right Arm Right Arm Pulse Ox 98 99 Oxygen Delivery Method Room Air Room Air Weight Weight: 82.4 kg Body Mass Index (BMI) 27.5 EEG Results Procedure Details EEG Procedure Details: RALF BORRERO III is a 78 year old M with a past medical history of , who presents for evaluation of Electroencephalogram on DATE at TIME NIHSS NIHSS Nursing Documentation NIHSS Nursing Documentation: NIHSS: Ischemic Stroke/TIA Start: 04/10/24 19:20 Freq: Q4H Status: Complete Protocol: Activity Type Activity Date Activity User E-sign Co-sign Detail Recorded Client Recorded Date Recorded By Document 04/10/24 21:37 MYKEL desktop 04/10/24 21:42 MYKEL 04/10/24 21:37 NIH Stroke Scale [NIHSS] A score of 0 is normal or asymptomatic . Total possible score is 42. Inpatient: RN or Physician to activate a stroke alert for onset of new stroke symptoms or with NIHSS increase >/= 3 points. Following change in neurological status, NIHSS will be performed per physician order or more frequently PRN. -1a. Level of Consciousness Not alert; -1b. LOC Questions Answers neither question correctly. -1c. LOC Commands Performs both tasks correctly . -2. Best Gaze Normal -3. Visual No visual loss -4. Facial Palsy Normal symmetrical movements -5a. Left Arm Drift; arm drifts downward but doesn?t hit the bed -5b. Right Arm Drift; arm drifts downward but doesn?t hit the bed -6a. Left Leg Drift; leg falls by the end of 5- seconds, but does not hit bed -6b. Right Leg Drift; leg falls by the end of 5- seconds, but does not hit bed -7. Limb Ataxia Absent -8. Sensory Normal; no sensory loss -9. Best Language No aphasia; normal -10. Dysarthria Normal -11. Extinction and Inattention No abnormality -Total 8 Query Text:A score of 0 is normal or asymptomatic. Total possible score is 42 . ED: Notify Physician for NIHSS increase by > / = 3 points. Inpatient: RN or Physician to activate a stroke alert for NIHSS increase of > / = 3 points. Thrombolytic: Vital Signs & NIHSS Start: 04/09/24 14:31 Text: Assess and document vital signs and NIHSS Status: Complete within 15 minutes of tenecteplase bolus administration Freq: [id number],Q2H Protocol: Activity Type Activity Date Activity User E-sign Co-sign Detail Recorded Client Recorded Date Recorded By Document 04/09/24 17:01 ET .10.25.7 04/09/24 17:10 ET 04/09/24 17:01 Vital Signs [Temperature Protocol: VS] -Temperature (97.8 F-99.1 F) 98.5 F -Temperature Source Oral [Pulse] -Pulse Rate (60-100) 81 -Pulse Location Monitor [Respirations] -Respiratory Rate (12-18) 13 -Respiratory rate source Monitor -Pulse Oximetry 94 -Oxygen Delivery Method Room Air [Blood Pressure] -Blood Pressure (90/60-120/80) 124/60 H -Blood Pressure Mean 81 -Source Monitor -Position Semi-Fowlers -Blood Pressure Location Right Arm -Is the SBP > or = 180 No -Is the DBP > or = 105 No NIH Stroke Scale [NIHSS] A score of 0 is normal or asymptomatic . Total possible score is 42. Inpatient: RN or Physician to activate a stroke alert for onset of new stroke symptoms or with NIHSS increase >/= 3 points. Following change in neurological status, NIHSS will be performed per physician order or more frequently PRN. -1a. Level of Consciousness Alert; keenly responsive -1b. LOC Questions Answers one question correctly. -1c. LOC Commands Performs both tasks correctly . -2. Best Gaze Normal -3. Visual No visual loss -4. Facial Palsy Normal symmetrical movements -5a. Left Arm No drift; arm holds 90 (or 45 ) degrees for full 10 seconds -5b. Right Arm No drift; arm holds 90 (or 45 ) degrees for full 10 seconds -6a. Left Leg No drift; leg holds 30-degree position for full 5 seconds -6b. Right Leg No drift; leg holds 30-degree position for full 5 seconds -7. Limb Ataxia Absent -8. Sensory Normal; no sensory loss -9. Best Language Mild-to- moderate aphasia; -10. Dysarthria Mild-to- moderate dysarthria; -11. Extinction and Inattention No abnormality -Total 3 Query Text:A score of 0 is normal or asymptomatic. Total possible score is 42 . ED: Notify Physician for NIHSS increase by > / = 3 points. Inpatient: RN or Physician to activate a stroke alert for NIHSS increase of > / = 3 points. Thrombolytic: Vital Signs & NIHSS Start: 04/09/24 17:37 Text: Assess and document vital signs and NIHSS Status: Complete within 15 minutes prior to Tenecteplase administration Freq: [id number],[id number],Q2H Protocol: Activity Type Activity Date Activity User E-sign Co-sign Detail Recorded Client Recorded Date Recorded By Document 04/10/24 17:15 DS desktop 04/10/24 17:17 DS 04/10/24 17:15 Vital Signs [Temperature Protocol: VS] -Temperature (97.8 F-99.1 F) 98.2 F -Temperature Source Temporal [Pulse] -Pulse Rate (60-100) 74 -Pulse Location Monitor [Respirations] -Respiratory Rate (12-18) 14 -Respiratory rate source Monitor -Pulse Oximetry 100 -Oxygen Delivery Method Room Air [Blood Pressure] -Blood Pressure (90/60-120/80) 110/69 -Blood Pressure Mean 82 -Source Monitor -Position Sitting -Blood Pressure Location Right Arm -Is the SBP > or = 180 No -Is the DBP > or = 105 No NIH Stroke Scale [NIHSS] A score of 0 is normal or asymptomatic . Total possible score is 42. Inpatient: RN or Physician to activate a stroke alert for onset of new stroke symptoms or with NIHSS increase >/= 3 points. Following change in neurological status, NIHSS will be performed per physician order or more frequently PRN. -1a. Level of Consciousness Alert; keenly responsive -1b. LOC Questions Answers BOTH questions correctly. -1c. LOC Commands Performs both tasks correctly . -2. Best Gaze Normal -3. Visual No visual loss -4. Facial Palsy Normal symmetrical movements -5a. Left Arm No drift; arm holds 90 (or 45 ) degrees for full 10 seconds -5b. Right Arm No drift; arm holds 90 (or 45 ) degrees for full 10 seconds -6a. Left Leg No drift; leg holds 30-degree position for full 5 seconds -6b. Right Leg No drift; leg holds 30-degree position for full 5 seconds -7. Limb Ataxia Present in 1 limb -8. Sensory Normal; no sensory loss -9. Best Language Mild-to- moderate aphasia; -10. Dysarthria Mild-to- moderate dysarthria; -11. Extinction and Inattention No abnormality -Total 3 Query Text:A score of 0 is normal or asymptomatic. Total possible score is 42 . ED: Notify Physician for NIHSS increase by > / = 3 points. Inpatient: RN or Physician to activate a stroke alert for NIHSS increase of > / = 3 points. Physical Exam Neuro Speech: speech abnormal Details: Positive for garbled Lab / Micro Data 04/10/24 07:55 04/10/24 07:55 Labs: Laboratory Results - last 24 hr 04/10/24 00:08: POC Glucose 79 04/10/24 06:29: POC Glucose 90 04/10/24 07:55: WBC 4.5, RBC 3.05 L, Hgb 9.3 L, Hct 28.7 L, MCV 94.1 H, MCH 30.5, MCHC 32.4, RDW Std Deviation 54.8 H, RDW Coeff of Jessica 15.9 H, Plt Count 173, MPV 9.9, Immature Gran % (Auto) 0.200, Neut % (Auto) 68.6, Lymph % (Auto) 16.3 L, Phillips % (Auto) 10.5 H, Eos % (Auto) 4.0, Baso % (Auto) 0.4, Absolute Neuts (auto) 3.1, Absolute Lymphs (auto) 0.73 L, Nucleated RBC % 0, Sodium 141, Potassium 3.8, Chloride 109 H, Carbon Dioxide 31.0, Anion Gap 1 L, BUN 25 H, Creatinine 0.82, Estim Creat Clear Calc 77.71, Est GFR (MDRD) Af Amer 117, Est GFR (MDRD) Non-Af 97, BUN/Creatinine Ratio 30.6 H, Glucose 89, Calcium 8.4 L, Triglycerides 83, Cholesterol 142, LDL Cholesterol 62, VLDL Cholesterol 17, HDL Cholesterol 63, TSH 2.21 04/10/24 11:40: POC Glucose 49 L 04/10/24 11:42: POC Glucose 91 04/10/24 13:50: Iron 98, TIBC 264, Iron Saturation 37.1, Ferritin 79, Vitamin B12 559, Folate 8.80 04/10/24 16:41: POC Glucose 82 04/10/24 21:38: POC Glucose 87 Imaging Radiology Impression Brain MRI 04/10/24 14:30 IMPRESSION: 1. No MRI evidence of acute or subacute ischemic infarct or remote cortical-based ischemic infarct. 2. Subcortical white matter T2 FLAIR hyperintensity, one each in the frontal lobes. They''re presumably chronic white matter ischemic changes and unchanged. 3. No significant interval change when compared to 08/09/2022. Electronically Signed: Slade Zapien MD at 15:34 EDT , Active Medications Active Medications Active Medications: Current Medications Generic Name Dose Route Start Last Admin Trade Name Freq PRN Reason Stop Dose Admin Acetaminophen 650 mg 04/09/24 17:37 Acetaminophen 325 Mg Tablet PO Q4H PRN PRN Pain 1-10 Or Fever >99.6 Atorvastatin Calcium 40 mg 04/09/24 22:00 04/10/24 21:56 Atorvastatin Calcium 40 Mg Tablet PO 40 mg QHS ESTHELA Administration Carbidopa/Levodopa 1 tablet 04/09/24 22:00 04/10/24 21:55 Carbidopa/Levodopa 25/250 Tablet PO 1 tablet TID ESTHELA Administration Donepezil HCl 5 mg 04/10/24 22:00 04/10/24 21:55 Donepezil Hcl 5 Mg Tablet PO 5 mg QHS ESTHELA Administration Entacapone 200 mg 04/09/24 22:00 04/10/24 21:56 Entacapone 200 Mg Tablet PO 200 mg TID ESTHELA Administration Memantine 10 mg 04/10/24 22:00 04/10/24 21:57 Memantine Hydrochloride 10 Mg Tablet PO 10 mg BID ESTHELA Administration Pantoprazole Sodium 40 mg 04/10/24 10:00 04/10/24 09:20 Pantoprazole Sodium 40 Mg Tablet PO 40 mg DAILY ESTHELA Administration Sodium Chloride 10 ml 04/09/24 17:37 04/10/24 21:57 0.9% Saline Lock 10 Ml Syringe IV 10 ml UD PRN Administration Before/After Tenecteplase Administration Sodium Chloride 10 - 40 ml 04/09/24 17:57 04/10/24 10:20 0.9% Saline Lock 10 Ml Syringe IV 20 ml UD PRN Administration SALINE FLUSH
[2024-04-11 02:43] VITALS: BMI 27.5
[2024-04-11 03:49] LABS: Hematocrit 29.6 % (40-54); Hemoglobin 9.6 g/dL (13.0-16.5); Mean Corp Hgb Conc 32.4 g/dL (32-36); Mean Corpuscular Volume 95.5 fL (80-94); Mean Platelet Vol. 9.6 fl (6.2-12.0); Platelet Count 166 K/mm3 (150-450); RBC Distribution Width CV 15.5 % (11.6-14.6); RBC Distribution Width SD 54.1 fl (35.1-43.9); White Blood Count 5.2 K/mm3 (4.4-11.0)
[2024-04-11 05:05] VITALS: BMI 27.7
[2024-04-11 05:35] VITALS: BP 159/131; PULSE 75; RESP 12; TEMP 36.7; O2SAT 95
[2024-04-11] MEDS: Carbidopa/Levodopa 25/250 Tablet PO ×3 (06:42→21:00)
[2024-04-11 06:59] VITALS: O2SAT 97
[2024-04-11 07:01] LABS: Bedside Glucose 94 mg/dL (74-106)
[2024-04-11 08:15] VITALS: BP 118/76; PULSE 70; RESP 18; TEMP 36.5; O2SAT 95
--- NOTE | 2024-04-11 08:47 | NURSING ---
0845- report called to Joelle on PCU. Pt transferred to room 128 and was settled into new bed. Attempted to call pt's for an update but the phone call went straight to voicemail. Joelle notified.
[2024-04-11] MEDS: Pantoprazole Sodium 40 MG Tablet PO (09:22)
[2024-04-11] MEDS: Memantine Hydrochloride 10 MG Tablet PO ×2 (09:22→21:00)
--- NOTE | 2024-04-11 11:15 | CASEMGMT ---
FEDERICO called patient's Kellen. FEDERICO introduced self and role at [facility]. FEDERICO let patient's know how patient did with therapy and it is recommended he go somewhere short term for rehab. Kellen said she will review the list. FEDERICO gave Kellen FEDERICO's phone number and let her now she can leave a voice mail with her 3 choices. Soni Marinelli PUBLIC AFFAIRS DIRECTOR JUNE
--- NOTE | 2024-04-11 11:29 | NEURO.EEG ---
EEG Results Procedure Details EEG Procedure Details: Inpatient routine EEG report performed at [facility] Study start time: 0732 am on 04/11/24 End Time: 0752 am on 04/11/24 History: Rule out seizures ? Indication: Rule out seizures Technical Description: This is a 18-channel digital EEG recording with time-locked video and single-channel electrocardiogram. Electrodes are placed according to the 10 to 20 International System. The patient was monitored continuously by EEG technicians and EEG recording was reviewed intermittently with annotations to the EEG record. Portions of this record are reviewed using bandpass filters of 1 to 70 Hz and sensitivity of 7mV/mm. ? EEG DESCRIPTION ? Background: This recording was obtained during awake and drowsy state. In the maximally alert state, a posterior dominant rhythm was a symmetric, reactive, well-modulated 7-8 Hz with a normal frequency-amplitude gradient. During drowsiness, there was attenuation of the waking background. Activation Procedures:Photic stimulation was performed. No abnormal or epileptic activity was triggered by this procedure. Sporadic Epileptiform Discharges: none Focal slow activity: none Rhythmic or Periodic activity: none ? Seizures: none Patient Events: none EEG DIAGNOSIS ? CLINICAL INTERPRETATION This EEG is consistent with mild diffuse encephalopathy. No epileptiform discharges or lateralizing signs were seen. Rayshawn Quinn MD
--- NOTE | 2024-04-11 11:30 | CASEMGMT ---
FEDERICO received a voice mail from patient's Kellen. Her 3 choices for [facility] are [facility], [facility], and [facility]. FEDERICO will work on referrals. Plan: SNF pending accepting facility and patient being medically ready. Soni WATKINS
--- NOTE | 2024-04-11 11:56 | PN.HOSP_ITS ---
Reason for Visit Reason for Visit: Diagnoses Anemia, unspecified (04/09/24) Unspecified dementia, unspecified severity, without behavioral disturbance, psychotic disturbance, mood disturbance, and anxiety (04/09/24) Cerebral infarction, unspecified (04/09/24) Personal history of other diseases of the nervous system and sense organs (04/09/24) Subjective Subjective Patient stable for transfer out of ICU yesterday evening, moved to PCU this morning. Saw patient at bedside this morning. Patient was sitting up in bed and making eye contact with me but again not answering questions appropriately, similar to yesterday. He otherwise did have some flushing of his face and had a mild rash noted on his left leg. Otherwise no new concerns today. Objective Data Objective Data Vital Signs: Vital Signs Temp Pulse Resp BP Pulse Ox O2 Del Method 97.7 F L 70 18 118/76 95 Room Air 04/11/24 08:15 04/11/24 08:15 04/11/24 08:15 04/11/24 08:15 04/11/24 08:15 04/11/24 08:15 Oxygen Delivery Method Room Air Weight: 83.1 kg Body Mass Index (BMI) 27.7 Intake & Output: Intake and Output for Last 24 Hours 04/09/24 04/10/24 04/11/24 23:59 23:59 23:59 Intake Total 0 / 0 4586.67 / 4586.67 240 / 240 Output Total 400 / 650 2049 / 2049 1245 / 1245 Balance -400 / -650 2536.67 / 2536.67 -1005 / -1005 Lab / Micro Data 04/11/24 03:05 04/10/24 07:55 Labs: Laboratory Results - last 24 hr 04/10/24 07:55: Hemoglobin A1c 5.0 04/10/24 11:40: POC Glucose 49 L 04/10/24 11:42: POC Glucose 91 04/10/24 13:50: Iron 98, TIBC 264, Iron Saturation 37.1, Ferritin 79, Vitamin B12 559, Folate 8.80 04/10/24 16:41: POC Glucose 82 04/10/24 21:38: POC Glucose 87 04/11/24 03:05: WBC 5.2, RBC 3.10 L, Hgb 9.6 L, Hct 29.6 L, MCV 95.5 H, MCH 31.0, MCHC 32.4, RDW Std Deviation 54.1 H, RDW Coeff of Jessica 15.5 H, Plt Count 166, MPV 9.6 04/11/24 06:39: POC Glucose 94 Radiography Diagnostic Testing: Radiology Impression Brain MRI 04/10/24 14:30 IMPRESSION: 1. No MRI evidence of acute or subacute ischemic infarct or remote cortical-based ischemic infarct. 2. Subcortical white matter T2 FLAIR hyperintensity, one each in the frontal lobes. They''re presumably chronic white matter ischemic changes and unchanged. 3. No significant interval change when compared to 08/09/2022. Electronically Signed: Slade Zapien MD at 15:34 EDT , Physical Exam Const alert, no apparent distress and average body habitus Constitutional Narrative: Elderly male, sitting up in bed, making appropriate eye contact but not answering any questions for me, otherwise in no acute distress. Does appear somewhat more flushed in the face today compared to yesterday. General Appearance: cooperative and comfortable HEENT normocephalic, head/scalp atraumatic, hearing grossly normal bilaterally, nasal mucous membranes and turbinates normal and moist oral mucous membranes Eyes PERRL, EOMs intact bilaterally and conjunctivae normal Neck full ROM Chest inspection of chest normal Resp normal respiratory effort, normal air movement, no use of accessory muscles and clear to auscultation bilaterally Cardio regular rate, regular rhythm, no murmurs and peripheral pulses 2+ throughout GI normal to inspection, nondistended, normoactive bowel sounds, soft to palpation, non-tender and non-distended Back/Spine normal ROM Extremity normal to inspection and no pedal edema Skin Skin Narrative: Erythematous rash noted on left leg and patient slightly more flushed in the face today for unclear reason. Neuro moves all extremities Neuro Narrative: No overt neurologic deficits noted but difficult to calculate patient's NIH score given his history of dementia and suspected baseline level of cognitive dysfunction. Stable. Assessment & Plan Assessment/Plan (1) Stroke: (2) Hx of Parkinson's disease: (3) Dementia: (4) Anemia: PLAN: Plan Patient is a 78-year-old male who presented [facility] ED on 04/09/2024 with strokelike symptoms. 1. Concern for acute CVA; history of Parkinson's disease with concern for worsening dementia ? Neurology following. Cutch Cleaner followed. Patient has known history of Parkinson's disease and dementia, lives at home with . found patient in yard with apparent right facial droop and slurring of speech and EMS brought him in as a stroke alert. NIH score was very high so he was given tenecteplase and then admitted to the ICU. CT brain and CTA head/neck in ED were unremarkable. MRI brain unremarkable. EEG unremarkable. Per neurology, suspect symptoms are due to worsening Parkinson's disease with dementia with functional decline. Passed swallow study without issue. Continue home carbidopa-levodopa, entacapone, memantine and donepezil. Lipid profile with good lipid control, no need for statin was started on admission and no need for aspirin. PT/OT/case management following, planning for SNF on discharge. 2. Acute on chronic anemia ? Hemoglobin 11.8 on admit, decreased to 9.3 on hospital day 2. No overt signs of bleeding noted, MRI brain pending as above. Iron studies with ferritin, B12 and folate normal. Continue to monitor daily CBC. 3. Mild erythematous rash ? Facial flushing and erythematous like rash noted on 04/11 of unclear etiology. Only new medication started since patient arrived here was atorvastatin and this medication will be discontinued on 04/11 given no stroke and adequate lipid control. Continue to monitor. Chronic medical conditions: ? GERD: Continue home PPI. ? Hypertension: Holding home losartan and Lasix for now, will restart when able. DVT prophylaxis: SCDs CODE STATUS: Full code, verified Expected disposition: SNF, 1 to 2 days Total clinical time spent by myself addressing the patient's medical issues, reviewing all the data, and collaborating with patient's care team: 35 minutes. Charges/Coding Visit Charges Inpatient E&M: 01345 Subs Hosp L2
--- NOTE | 2024-04-11 12:05 | CASEMGMT ---
SW called patient's Kellen. SW went over therapy's recommendation for alf facility. Kellen was agreeable for short term rehab. Kellen said she would look over the SNF list and let SW know her 3 choices. Soni Marinelli SOA ARCHITECT JUNE
--- NOTE | 2024-04-11 12:44 | CASEMGMT ---
Referral sent to [facility] via [employer]. Soni Marinelli REGISTERED ACCOUNT ADMINISTRATOR TANK INSPECTOR
[2024-04-11 13:56] LABS: Bedside Glucose 111 mg/dL (74-106)
[2024-04-11 14:00] VITALS: BP 117/64; PULSE 72; RESP 18; TEMP 36.6; O2SAT 97
[2024-04-11 16:03] VITALS: BMI 27.7
[2024-04-11 18:02] VITALS: BP 143/78; PULSE 81; RESP 16; TEMP 37.1; O2SAT 94
[2024-04-11 18:18] LABS: Bedside Glucose 89 mg/dL (74-106)
[2024-04-11 20:55] VITALS: BP 143/92; PULSE 73; RESP 18; TEMP 36.9; O2SAT 96
[2024-04-11] MEDS: Donepezil HCl 5 MG Tablet PO (21:00)
[2024-04-11 21:55] VITALS: BMI 27.7
[2024-04-11 22:04] LABS: Bedside Glucose 100 mg/dL (74-106)
--- NOTE | 2024-04-11 23:55 | RAD_ITS ---
EXAM: XR RIGHT HUMERUS, 2 OR MORE VIEWS CLINICAL INDICATION: R arm bruising s/p fall, not moving. TECHNIQUE: Frontal and lateral views of the right humerus. COMPARISON: No relevant prior studies available. FINDINGS: BONES/JOINTS: Unremarkable. No acute fracture. No subluxation. Normal alignment. Preservation of the joint space. No sclerotic or destructive changes observed. SOFT TISSUES: Unremarkable. No soft tissue swelling or gas. No radiopaque foreign body. RAD/Humerus min 2 Views IMPRESSION: Negative right humerus x-rays. Electronically Signed: Slade Zapien MD at 15:42 EDT ,
--- NOTE | 2024-04-11 23:55 | RAD_ITS ---
HISTORY: R arm bruising s/p fall, not moving.. TECHNIQUE: XR Elbow Min 3 Views. COMPARISON: None. FINDINGS: BONES : No acute fracture identified. Mineralization unremarkable. JOINTS: No dislocation. Joint spaces maintained. SOFT TISSUES: Moderate soft tissue swelling over the medial epicondyle. RAD/Elbow min 3 Views IMPRESSION: No acute fracture or dislocation identified in the right elbow. Electronically Signed: Aria Zurita MD at 12:56 EDT ,
--- NOTE | 2024-04-11 23:55 | RAD_ITS ---
EXAM: XR RIGHT FOREARM, 2 VIEWS CLINICAL INDICATION: R arm bruising s/p fall, not moving. TECHNIQUE: Frontal and lateral views of the right forearm. COMPARISON: No relevant prior studies available. FINDINGS: BONES/JOINTS: Unremarkable. No acute fracture. No dislocation. SOFT TISSUES: Unremarkable. RAD/Forearm 2 Views IMPRESSION: Negative right forearm x-rays. Electronically Signed: Slade Zapien MD at 15:41 EDT ,
--- NOTE | 2024-04-11 23:58 | PCM.HOSP.N ---
Hospitalist Note Noted R arm apparent bruising per staff with fall prior to admission. To be cautious will obtain RUE plain films.
[2024-04-12 03:15] VITALS: BMI 27.8
[2024-04-12 03:55] VITALS: BP 158/90; PULSE 79; RESP 17; TEMP 36.4; O2SAT 95
[2024-04-12] MEDS: Carbidopa/Levodopa 25/250 Tablet PO ×3 (05:07→20:05)
[2024-04-12] MEDS: Acetaminophen 325 MG Tablet 650 MG PO (05:07)
[2024-04-12 05:48] LABS: Hematocrit 30.4 % (40-54); Hemoglobin 9.7 g/dL (13.0-16.5); Mean Corp Hgb Conc 31.9 g/dL (32-36); Mean Corpuscular Hgb 30.3 pg (27.0-32.0); Mean Platelet Vol. 9.9 fl (6.2-12.0); Platelet Count 194 K/mm3 (150-450); RBC Distribution Width CV 15.3 % (11.6-14.6); RBC Distribution Width SD 53.6 fl (35.1-43.9); White Blood Count 5.2 K/mm3 (4.4-11.0)
[2024-04-12 06:57] LABS: Bedside Glucose 90 mg/dL (74-106)
[2024-04-12 09:13] VITALS: BP 145/80; PULSE 64; RESP 18; TEMP 36.4; O2SAT 97
[2024-04-12] MEDS: Memantine Hydrochloride 10 MG Tablet PO ×2 (09:16→20:05)
[2024-04-12] MEDS: Pantoprazole Sodium 40 MG Tablet PO (09:16)
--- NOTE | 2024-04-12 12:17 | PCM.PN.HOSP ---
Reason for Visit Reason for Visit: Diagnoses Anemia, unspecified (04/09/24) Unspecified dementia, unspecified severity, without behavioral disturbance, psychotic disturbance, mood disturbance, and anxiety (04/09/24) Cerebral infarction, unspecified (04/09/24) Personal history of other diseases of the nervous system and sense organs (04/09/24) Subjective Subjective Saw patient at bedside this morning. Patient was sitting up comfortably in bed and making appropriate eye contact but not answering questions appropriately, similar to previous days. He did not appear nearly as flushed in the face today and his leg rash is improved. No other new concerns today. Objective Data Objective Data Vital Signs: Vital Signs Temp Pulse Resp BP Pulse Ox O2 Del Method 97.5 F L 64 18 145/80 H 97 Room Air 04/12/24 09:13 04/12/24 09:13 04/12/24 09:13 04/12/24 09:13 04/12/24 09:13 04/12/24 09:29 Oxygen Delivery Method Room Air Weight: 83.2 kg Body Mass Index (BMI) 27.8 Intake & Output: Intake and Output for Last 24 Hours 04/10/24 04/11/24 04/12/24 23:59 23:59 23:59 Intake Total 4586.67 / 4586.67 440 / 440 Output Total 2049 / 2049 2795 / 2795 Balance 2536.67 / 2536.67 -2355 / -2355 Lab / Micro Data 04/12/24 05:17 04/10/24 07:55 Labs: Laboratory Results - last 24 hr 04/11/24 13:34: POC Glucose 111 H 04/11/24 17:58: POC Glucose 89 04/11/24 21:44: POC Glucose 100 04/12/24 05:17: WBC 5.2, RBC 3.20 L, Hgb 9.7 L, Hct 30.4 L, MCV 95.0 H, MCH 30.3, MCHC 31.9 L, RDW Std Deviation 53.6 H, RDW Coeff of Jessica 15.3 H, Plt Count 194, MPV 9.9 04/12/24 05:30: POC Glucose 90 Physical Exam Const alert, no apparent distress and average body habitus Constitutional Narrative: Elderly male, sitting up in bed, making appropriate eye contact but not answering any questions for me, otherwise in no acute distress. Facial flushing improved. General Appearance: cooperative and comfortable HEENT normocephalic, head/scalp atraumatic, hearing grossly normal bilaterally, nasal mucous membranes and turbinates normal and moist oral mucous membranes Eyes PERRL, EOMs intact bilaterally and conjunctivae normal Neck full ROM Chest inspection of chest normal Resp normal respiratory effort, normal air movement, no use of accessory muscles and clear to auscultation bilaterally Cardio regular rate, regular rhythm, no murmurs and peripheral pulses 2+ throughout GI normal to inspection, nondistended, normoactive bowel sounds, soft to palpation, non-tender and non-distended Back/Spine normal ROM Extremity normal to inspection and no pedal edema Skin Skin Narrative: Erythematous rash noted on left upper leg on 04/11, improving. Neuro moves all extremities Neuro Narrative: No overt neurologic deficits noted but difficult to calculate patient's NIH score given his history of dementia and suspected baseline level of cognitive dysfunction. Stable. Assessment & Plan Assessment/Plan (1) Stroke: (2) Hx of Parkinson's disease: (3) Dementia: (4) Anemia: PLAN: Plan Patient is a 78-year-old male who presented [facility] ED on 04/09/2024 with strokelike symptoms. 1. Concern for acute CVA; history of Parkinson's disease with concern for worsening dementia ? Neurology following. Furniture Sales Consultant followed. Patient has known history of Parkinson's disease and dementia, lives at home with . found patient in yard with apparent right facial droop and slurring of speech and EMS brought him in as a stroke alert. NIH score was very high so he was given tenecteplase and then admitted to the ICU. CT brain and CTA head/neck in ED were unremarkable. MRI brain unremarkable. EEG unremarkable. Per neurology, suspect symptoms are due to worsening Parkinson's disease with dementia with functional decline. Passed swallow study without issue. Continue home carbidopa-levodopa, entacapone, memantine and donepezil. Lipid profile with good lipid control, no need for statin was started on admission and no need for aspirin. PT/OT/case management following, planning for SNF on discharge and suspect patient will likely need long-term placement either in a intermediate or memory care unit after SNF stay. Medically ready for discharge to SNF on 04/12, pre-CERT pending. 2. Acute on chronic anemia, stable ? Hemoglobin 11.8 on admit, decreased to 9.3 on hospital day 2 but has now remained stable around 9.5. Iron studies with ferritin, B12 and folate normal. No need to monitor further CBCs. 3. Mild erythematous rash, improving ? Facial flushing and erythematous like rash noted on 04/11 of unclear etiology. Only new medication started since patient arrived here was atorvastatin and this medication was discontinued on 04/11 given no stroke and adequate lipid control. Rash improving on 04/12, continue to monitor. Chronic medical conditions: ? GERD: Continue home PPI. ? Hypertension: Holding home losartan and Lasix for now, will restart when able. DVT prophylaxis: SCDs CODE STATUS: Full code, verified Expected disposition: SNF, medically ready for discharge on 04/12, pre-CERT pending Total clinical time spent by myself addressing the patient's medical issues, reviewing all the data, and collaborating with patient's care team: 35 minutes. Charges/Coding Visit Charges Inpatient E&M: 67631 Subs Hosp L2
[2024-04-12 14:08] VITALS: BP 144/78; PULSE 71; RESP 18; TEMP 36.6; O2SAT 99
[2024-04-12 14:33] LABS: Bedside Glucose 78 mg/dL (74-106)
[2024-04-12 17:00] VITALS: BMI 27.8
[2024-04-12 18:27] LABS: Bedside Glucose 97 mg/dL (74-106)
[2024-04-12] MEDS: Donepezil HCl 5 MG Tablet PO (20:06)
[2024-04-12 20:10] VITALS: BP 138/82; PULSE 66; RESP 16; TEMP 36.4; O2SAT 100
[2024-04-12 23:06] VITALS: BMI 27.8
[2024-04-13 02:10] VITALS: BP 119/93; PULSE 68; RESP 17; TEMP 36.6; O2SAT 96
[2024-04-13] MEDS: Carbidopa/Levodopa 25/250 Tablet PO ×2 (05:28→15:00)
[2024-04-13 06:00] VITALS: BMI 26.9
[2024-04-13 06:40] LABS: Bedside Glucose 91 mg/dL (74-106)
[2024-04-13 07:49] LABS: Bedside Glucose 101 mg/dL (74-106)
[2024-04-13 09:03] VITALS: BP 140/75; PULSE 75; RESP 17; TEMP 37.1; O2SAT 94
--- NOTE | 2024-04-13 09:29 | CASEMGMT ---
FEDERICO received a voice mail from patient's Kellen. Kellen stated she did not realize [facility] had rehab and she would like patient to stay at [facility] for his rehab. FEDERICO made a referral to [facility] for Rehab Unit vs TCU. Soni WATKINS
--- NOTE | 2024-04-13 09:34 | CASEMGMT ---
Discharge Planning Updates sent to [facility] via [employer]. Carline Matute DC Planning Asst.
--- NOTE | 2024-04-13 10:23 | CASEMGMT ---
Discharge Planning CC has accepted patient. SW updated. Carline Matute DC Planning Asst.
--- NOTE | 2024-04-13 10:41 | CASEMGMT ---
[facility] Acute Rehab has accepted patient. FEDERICO called patient's Kellen and notified her of the information. FEDERICO explained the two units at [facility] and Kellen was agreeable to either unit. FEDERICO explained patient was accepted in the Acute Rehab Unit which is on the 4th floor. FEDERICO told Kellen patient may go today, but FEDERICO will call and let her know for sure. Plan: [facility] Acute Rehab Soni WATKINS
[2024-04-13 14:26] VITALS: BMI 26.9
--- NOTE | 2024-04-13 14:40 | DCINST_ITS ---
Discharge Instructions Diet Discharge Diet: - (Heart healthy, total feed, no straws) Activity Discharge Activity: - (Discharge med rehab) Follow Up Care Test Results: Test results from this visit will be discussed in further detail at your follow- up appointment, if applicable. Discharge Plan Admission Admit Date/Time: 04/09/24 16:02 Primary Reason for Your Visit: Stroke like symptoms Attending Provider: Kristal Ramirez Primary Care Provider: Lydia Gibbons Consulting Providers: Chidi Ly; Berhane Peck; Kerwin Fregoso; Adam Heath; Sawyer Wood; Mariya Walters; Seth Bennett; Ger Torres; Irma Miller; Rachell Patel; Jasiel Peterson; Pravin León; Aba Suero; Andre Perkins; Jean Murrieta; Giovany Lopez; Lolita Cain NP; Felix Betancourt; Ed Aaron Instructions Patient Instructions: ED Fall Prevention Additional Instructions / Restrictions: DISCHARGE INSTRUCTIONS PLEASE READ *Please take this with you to your next doctors appointment* -Your home medication list indicated you are on furosemide and potassium however your weight has been stable this admission so would hold off on continuing these until discussing with your prescribing physician -Continue other home meds -Please call your primary care provider's office upon discharge to schedule a hospital follow up within 1 week. -For any concerning signs or symptoms please call 911 or proceed to the nearest emergency department Discharge Orders/Prescriptions Prescriptions: Continued carbidopa-levodopa 25-250 mg tablet 1 tab PO TID memantine 10 mg tablet 10 mg PO BID losartan 50 mg tablet 50 mg PO DAILY omeprazole 20 mg capsule,delayed release(DR/EC) 20 mg PO DAILY donepezil 5 mg tablet 5 mg PO QHS entacapone 200 mg tablet 200 mg PO TID Held furosemide 20 mg tablet 20 mg PO DAILY Hold Instructions: Resume on 04/22/24. Please discuss with your prescribing physician regarding optimal timing to resume your furosemide and potassium potassium chloride 20 mEq tablet extended release 20 meq PO DAILY Hold Instructions: Resume on 04/22/24. Please discuss with your prescribing physician regarding optimal timing to resume your furosemide and potassium Referrals / Follow Up: Lydia Gibbons, CONTAMINATED LAND CONSULTANT-C [Primary Care Provider] - Within 1 Week Disposition Disposition (needs filled in before D/C Order can be placed): Inpatient Rehab Unit/Facility
[2024-04-13 15:07] VITALS: BP 133/92; PULSE 75; RESP 17; TEMP 36.8; O2SAT 95
--- NOTE | 2024-04-13 15:25 | PCM.DC.SUM ---
Providers Date of Admission: 04/09/24 Date of Discharge: 04/13/24 Primary Care Physician: KEVIN Almanza Consultations 04/09/24 14:31 Consult: Powertrain Calibration Engineer / Pulmonary Medicine Routine Consulting Provider: Pulmonary Medicine cy WebbLeander Reason for Consult: stroke for thrombolytic administration EMERGENT Consult: Yes MD Notified: Yes Date Notified: 04/09/24 Time Notified: 16:56 Method of Notification: Text Comments:: Consult may be done in ED or ICU 04/09/24 17:37 Consult: Powertrain Calibration Engineer / Pulmonary Medicine Routine Consulting Provider: Pulmonary Medicine cy Gonzalez Reason for Consult: Acute Ischemic Stroke/TIA EMERGENT Consult: Yes MD Notified: Yes Date Notified: 04/09/24 Time Notified: 16:03 Method of Notification: ED Physician Initiated Consult: Tele-Neurology Routine Consulting Provider: [facility] Reason for Consult: Acute Ischemic Stroke/TIA EMERGENT Consult: No MD Notified: Yes Date Notified: 04/09/24 Time Notified: 16:03 Method of Notification: ED Physician Initiated Nursing Unit Staff Notify [facility] of Tele-Neurology Consult: Yes Reason For Visit: Stroke like symptoms POST TENECTEPLASE Diagnosis Discharge Diagnosis (1) Hx of Parkinson's disease: Status: Acute Code(s): Z86.69 - Personal history of other diseases of the nervous system and sense organs (2) Dementia: Status: Acute Code(s): F03.90 - Unspecified dementia, unspecified severity, without behavioral disturbance, psychotic disturbance, mood disturbance, and anxiety (3) Anemia: Status: Inactive Code(s): D64.9 - Anemia, unspecified Plan #parkinson's disease #dementia #Chronic anemia #HTN #GERD Medications at Discharge Home Medications carbidopa 25 mg-levodopa 250 mg tablet 1 tab PO TID 08/09/22 furosemide 20 mg tablet 20 mg PO DAILY 08/09/22 memantine 10 mg tablet 10 mg PO BID 08/09/22 potassium chloride 20 mEq tablet,extended release 20 meq PO DAILY 02/06/23 donepezil 5 mg tablet 5 mg PO QHS 04/09/24 entacapone 200 mg tablet 200 mg PO TID 04/09/24 losartan 50 mg tablet 50 mg PO DAILY 04/09/24 omeprazole 20 mg capsule,delayed release 20 mg PO DAILY 04/09/24 Hospital Course Summary of Care Provided Minutes Spent on Discharge: 35 Hospital Course: 78-year-old male history of Parkinson's, hypertension, dementia presented to [facility] ED 04/09/2024 due to some possible right-sided facial droop and right-sided weakness as well as some confusion and not making sense when he was talking. Patient was a stroke call and due to NIH of 12 [facility] recommended [place] K, patient was given TNK and admitted to the ICU and seen in consultation with hr payroll coordinator and neurologist. Workup negative and MRI with no acute stroke, neurology felt that after speaking with his that his symptoms were consistent with worsening parkinsonism or dementia and did not feel he had an acute stroke and they communicated this with hospitalist taking care of patient at time of consult. Patient evaluated by PT/OT and was deemed a candidate for inpatient medical rehab, on day of discharge patient feeling little bit tired but had no acute complaints. Reviewed neurology note and discussed with hospitalist taking care of patient prior and it was confirmed that patient was not supposed to be on aspirin or statin and that this was considered consistent with acute on chronic medical problems. Discharged to med rehab in stable condition Physical Exam Narrative General: Awake, mumbles answers to questions HEENT: Atraumatic, normocephalic Eyes: Anicteric, normal conjunctiva, extraocular movements grossly intact Neck: Supple Respiratory: Clear to auscultation bilaterally, normal respiratory effort Cardiovascular: Regular rate and rhythm GI: Soft, nontender, nondistended Extremities: No edema Musculoskeletal: Moving all extremities Neuro: No overt focal neurological deficits Skin: Has had some scattered bruising Psych: Cooperative Weight / BMI Weight Weight: 80.4 kg Body Mass Index (BMI) 26.9 ABG / Lab / Microbiology Data 04/12/24 05:17 04/10/24 07:55 Laboratory: Laboratory Results - last 24 hr 04/12/24 18:01: POC Glucose 97 04/13/24 01:16: POC Glucose 101 04/13/24 05:32: POC Glucose 91 Radiography Diagnostic Testing: Radiology Impression Forearm X-Ray 04/11/24 23:55 IMPRESSION: Negative right forearm x-rays. Electronically Signed: Slade Zapien MD at 15:41 EDT , Humerus X-Ray 04/11/24 23:55 IMPRESSION: Negative right humerus x-rays. Electronically Signed: Slade Zapien MD at 15:42 EDT , D/C Instructions Discharge Diet: - (Heart healthy, total feed, no straws) Meaningful Use Info Meaningful Use Meaningful Use Diagnoses (Choose all that apply): None applicable Ischemic Stroke Statin Dosing Therapy Reference: STATIN DOSE THERAPY REFERENCE: * Patients > 75 years receive moderate or high dose statin therapy. * Patients 75 years or YOUNGER should receive HIGH intensity statin dose unless contraindicated. You will be required to document reason for non-treatment if statin daily dose does not meet guidelines. HIGH DOSE STATIN THERAPY DAILY Atorvastatin > than or = to 40 mg Rosuvastatin > than or = to 20 mg Amlodipine + Atorvastatin > than or = to 2.5/40 mg Ezetimibe + Simvastatin 10/80 mg Simvastatin 80mg Discharge Plan Admission Admit Date/Time: 04/09/24 16:02 Primary Reason for Your Visit: Stroke like symptoms Attending Provider: Kristal Ramirez Primary Care Provider: Lydia Gibbons Consulting Providers: Chidi Ly; Berhane Peck; Kerwin Fregoso; Adam Heath; Sawyer Wood; Mariya Walters; Seth Bennett; Ger Torres; Irma Miller; Rachell Patel; Jasiel Peterson; Pravin León; Aba Suero; Andre Perkins; Jean Murrieta; Giovany Lopez; Lolita Cain NP; Felix Betancourt; Ed Aaron Instructions Patient Instructions: ED Fall Prevention Additional Instructions / Restrictions: DISCHARGE INSTRUCTIONS PLEASE READ *Please take this with you to your next doctors appointment* -Your home medication list indicated you are on furosemide and potassium however your weight has been stable this admission so would hold off on continuing these until discussing with your prescribing physician -Continue other home meds -Please call your primary care provider's office upon discharge to schedule a hospital follow up within 1 week. -For any concerning signs or symptoms please call 911 or proceed to the nearest emergency department Discharge Orders/Prescriptions Prescriptions: Continued carbidopa-levodopa 25-250 mg tablet 1 tab PO TID memantine 10 mg tablet 10 mg PO BID losartan 50 mg tablet 50 mg PO DAILY omeprazole 20 mg capsule,delayed release(DR/EC) 20 mg PO DAILY donepezil 5 mg tablet 5 mg PO QHS entacapone 200 mg tablet 200 mg PO TID Held furosemide 20 mg tablet 20 mg PO DAILY Hold Instructions: Resume on 04/22/24. Please discuss with your prescribing physician regarding optimal timing to resume your furosemide and potassium potassium chloride 20 mEq tablet extended release 20 meq PO DAILY Hold Instructions: Resume on 04/22/24. Please discuss with your prescribing physician regarding optimal timing to resume your furosemide and potassium Referrals / Follow Up: Lydia Gibbons, [employer]AK[employer] TEAM MEMBER-C [Primary Care Provider] - Within 1 Week Disposition Disposition (needs filled in before D/C Order can be placed): Inpatient Rehab Unit/Facility Charges/Coding Visit Charges Inpatient E&M: 61360 Disch Hosp >30min
--- NOTE | 2024-04-13 15:37 | CASEMGMT ---
Patient is ready for discharge to [facility] Acute Rehab Unit. FEDERICO called patient's Kellen and let her know patient will be going today. FEDERICO also gave Kellen the phone number for the Acute Rehab Unit. Kellen was so thankful for the help. She has not been able to come in and visit as she has been ill. Plan: d/c to [facility] Acute Rehab Unit Soni WATKINS
--- NOTE | 2024-04-13 15:38 | PHA.DC.MR.R ---
Pharmacy [place] Med Reconciliation Pharmacy Service has performed discharge medication reconciliation for this patient. The patient's discharge medication list was reviewed for discrepancies and discrepancies were resolved. Medications at Discharge Home Medications carbidopa 25 mg-levodopa 250 mg tablet 1 tab PO TID parkinson's 08/09/22 furosemide 20 mg tablet 20 mg PO DAILY water pill 08/09/22 memantine 10 mg tablet 10 mg PO BID memory 08/09/22 potassium chloride 20 mEq tablet,extended release 20 meq PO DAILY supplement 02/06/23 donepezil 5 mg tablet 5 mg PO QHS memory 04/09/24 entacapone 200 mg tablet 200 mg PO TID parkinson's 04/09/24 losartan 50 mg tablet 50 mg PO DAILY blood pressure 04/09/24 omeprazole 20 mg capsule,delayed release 20 mg PO DAILY GERD 04/09/24
[2024-04-13 16:02] VITALS: BMI 26.9
--- NOTE | 2024-04-13 16:18 | CHAPLAIN ---
Type of Pastoral Visit _x__ Initial Visit ___ Follow-up Visit ___ On-call Visit ___ General Patient Visit ___ Spiritual Assessment ___ Family Conference ___ Bereavement ___ Rapid Response ___ Code Blue ___ Other (describe below) Pastoral Care Referral From ___ Patient ___ Family ___ Nurse ___ Physician ___ Terminologist ___ News Specialist _x__ Other (describe below) Sacrament/Intervention ___ Active listening ___ Anointing ___ Muslim ___ Bereavement ___ Communion ___ Catrina exploration ___ ___ Life review _x__ Prayer ___ Reconciliation ___ Sacrament of Sick _x__ Supportive presence ___ Wedding ___ Other (describe below) Pastoral Comments patient was postured and did not look at this tire mold engraver; pt mumbles a few words when asked a question but could not engage in a conversation; pt was told that this tire mold engraver could sit with him for a short time and offer a prayer if desired; pt spoke yes and the same was given
== END 2024-04-13 16:14 | DRG 57 ==
LOC: ED 16:08 → ICU 16:15 → PCU 04-11 08:33
PROVIDERS: Hospitalist; Admitting Provider Internal Medicine; Emergency Provider Emergency Medicine; PCP Nurse Practitioner Family; Visit Provider Internal Medicine
DX: G20.A1 Parkinson's disease without dyskinesia, without mention of fluctuations (principal); D64.9 Anemia, unspecified; F02.80 Dementia in other diseases classified elsewhere, unspecified severity, without behavioral disturbance, psychotic disturbance, mood disturbance, and anxiety; I48.0 Paroxysmal atrial fibrillation; I10 Essential (primary) hypertension; K21.9 Gastro-esophageal reflux disease without esophagitis; R21 Rash and other nonspecific skin eruption; Z79.899 Other long term (current) drug therapy
CPT/HCPCS: 36415; 51702; 70450; 70496; 70498; 70551; 71045; 73060; 73080; 73090; 80048; 80061; 81001; 82607; 82728; 82746; 82962; 83036; 83540; 83550; 83735; 84100; 84443; 84484; 85025; 85027; 85610; 85730; 92526; 92610; 93005; 94762; 95819; 97116; 97162; 97166; 97530; 97535; 97802; 99285; J3101; J7030; Q9967; A4216; J3490

== ENCOUNTER 2024-04-13 16:26 | Inpatient (IN) | payer MEDICARE, OTHER, SELFPAY ==
[2024-04-13 16:55] VITALS: BMI 25.7
[2024-04-13 17:07] VITALS: BP 126/50; PULSE 77; RESP 18; TEMP 38.1; O2SAT 91
[2024-04-13] MEDS: Nystatin Powder 15gm Bottle 1 APPLIC TOPICAL (21:07)
[2024-04-13] MEDS: Donepezil HCl 5 MG Tablet PO (21:08)
[2024-04-13] MEDS: Memantine Hydrochloride 10 MG Tablet PO (21:08)
[2024-04-13] MEDS: Senna/Docusate Sodium 1 Tablet 2 TABLET PO (21:08)
[2024-04-13] MEDS: Carbidopa/Levodopa 25/250 Tablet PO (21:09)
[2024-04-13] MEDS: Menthol/Lanolin/Calamine/Znox 113 GM Tube 1 APPLIC TOPICAL (21:11)
[2024-04-13 21:41] VITALS: RESP 16
--- NOTE | 2024-04-13 23:00 | NURSING ---
Patient's temperature 99.6F temporal. Will continue to monitor.
[2024-04-14 06:00] VITALS: BP 168/91; PULSE 68; RESP 16; TEMP 37.2; O2SAT 99
[2024-04-14] MEDS: Carbidopa/Levodopa 25/250 Tablet PO ×3 (06:44→20:22)
[2024-04-14] MEDS: Nystatin Powder 15gm Bottle 1 APPLIC TOPICAL ×2 (06:53→20:24)
[2024-04-14] MEDS: Menthol/Lanolin/Calamine/Znox 113 GM Tube 1 APPLIC TOPICAL ×2 (06:54→20:24)
[2024-04-14 07:07] LABS: Absolute Lymphocyte Count 0.54 X10^3/uL (0.83-4.51); Absolute Neutrophil Count 2.7 X10^3/uL (2.0-7.7); Basophil# 0.04 X10^3/uL; Basophil% 0.9 % (0-1); Eosinophil# 0.23 X10^3/uL; Eosinophils% 5.3 % (0-5); Hematocrit 33.6 % (40-54); Hemoglobin 10.9 g/dL (13.0-16.5); Lymphocyte # 0.54 X10^3/ul (0.83-4.51); Lymphocyte % 12.4 % (19-41); Mean Corp Hgb Conc 32.4 g/dL (32-36); Mean Corpuscular Volume 95.5 fL (80-94); Mean Platelet Vol. 9.1 fl (6.2-12.0); Monocyte# 0.79 X10^3/uL; Monocyte% 18.1 % (0-10); NRBC Flagged by Analyzer 0 % (0-5); Neutrophil # 2.74 X10^3/uL (2.7-7.7); Neutrophil % 62.8 % (47-70); POSITIVE DIFFERENTIAL YES; Platelet Count 209 K/mm3 (150-450); RBC Distribution Width CV 15.2 % (11.6-14.6); RBC Distribution Width SD 53.1 fl (35.1-43.9); Red Blood Count 3.52 M/mm3 (4.6-6.2); White Blood Count 4.4 K/mm3 (4.4-11.0)
[2024-04-14 07:57] LABS: ALB/GLOB Ratio 0.9 RATIO (0.9-2.4); AST(SGOT) 36 U/L (15-37); Alanine Aminotransfer ALT/SGPT 17 U/L (16-61); Alkaline Phosphatase 112 U/L (45-117); Anion Gap 7 (5-15); BUN 15 mg/dL (7-18); BUN/Creat Ratio 17.3 RATIO (10-20); Calcium,Total 8.7 mg/dL (8.5-10.1); Chloride 104 mmol/L (98-107); Creatinine, Serum 0.87 mg/dL (0.70-1.30); EST Glomerular Filtration Rate 91 mL/min (>60); Est Glom Filt Rate - Afr Amer 110 mL/min (>60); Globulin 3.5 g/dL (2.2-4.2); Glucose 80 mg/dL (74-106); Magnesium 1.9 mg/dL (1.6-2.6); Phosphorus 3.3 mg/dL (2.5-4.9); Potassium 3.7 mmol/L (3.5-5.1); Protein, Total 6.5 g/dL (6.4-8.2); Sodium Level 139 mmol/L (136-145)
[2024-04-14] MEDS: Losartan Potassium 50 MG Tablet PO (08:07)
[2024-04-14] MEDS: Senna/Docusate Sodium 1 Tablet 2 TABLET PO ×2 (08:07→20:22)
[2024-04-14] MEDS: Memantine Hydrochloride 10 MG Tablet PO ×2 (08:07→20:22)
[2024-04-14] MEDS: Pantoprazole Sodium 20 MG Tablet PO (08:07)
--- NOTE | 2024-04-14 09:39 | HP.PCM_ITS ---
HPI - General General Date of Admission: 04/13/24 Date of Service: 04/14/24 Chief Complaint: Post stroke debility HPI Narrative RALF BORRERO, is a 78 YO M with a PMH of prostate cancer, hyperlipidemia, hypertension, dementia with visual hallucinations, atrial fibrillation, obstructive sleep apnea and Parkinson's disease who presented to the ED at [facility] on 04/09/2024 complaining of sudden onset confusion and inability to speak. EMS reported right-sided weakness and right facial droop. A stat noncontrast CT brain showed no acute abnormalities. CTA of the head and neck was reported as normal. [facility] was consulted. NIHSS was 10 per their exam. IV thrombolytic therapy was recommended and the patient and family were agreeable. Per the hospitalist H&P he had been confused with garbled speech for the preceding 2 weeks and was not doing well. He also had BL edema of the LE's. He was admitted to the ICU. Transthoracic echocardiogram showed a 60% left ventricular ejection fraction with no evidence for diastolic dysfunction and no wall motion abnormalities. Bubble contrast study was negative for a right to left interatrial shunt. The left atrium was mildly enlarged. There was no significant valvular heart disease. MRI of the brain was done on 04/10/2024 and showed no MRI evidence of acute or subacute ischemic infarct or remote cortical- based ischemic infarct. There was no significant interval change when compared to an MRI done 08/09/2022. Teleneurology was reconsulted following the MRI results and at that time his NIH was 1. They reported that the neuroimaging was normal. His felt that he was at baseline on 04/10/24. The most likely cause of the sx at admission was deemed to be acute ischemic stroke. While in the hospital he had an EEG that was interpreted as mild diffuse encephalopathy with no epileptiform discharges or lateralizing signs. While in the hospital he was seen by PT/OT/ST and was felt to be deconditioned due to worsening of PD. Acute rehab was recommended to see if he could improve to the point where he would be able to return home at DC or he would need to be placed in an alternative living situation. He was transferred to the acute inpt rehab unit at [facility] on 04/13/24 for 3 hours of therapy daily to restore function/independence to a point where his family could care for him at home. His tells me that he gets confused in the evenings and wanders. Sometimes he just stares at her. Has had visual hallucinations in the past. No agitation or aggressive behavior. He is lucent during the days and can carry on an appropriate conversation. He does not have trouble swallowing and he is on thin liquids at home. His cuts his food up into small bites. They were in [place] for the winter. While they were down there he had a UTI and decompensated. He was in a SNF for a month. They came home from [place] on January 19 and he has been declining since then. He sees Dr. Lucas for neurology and Dr. Lee for primary care. He has seen Dr. Meyers in [place] for cardiology. Kellen tells me that he has no hx of heart disease. He uses a cane to ambulate at home. He feeds himself. had a reverse shoulder by Dr. Moraes on 04/07/24 and she is not able to help him. He had a single temp elevated at 100.5 ?F at presentation to rehab. He is afebrile this morning. VSS -blood pressure over the past 2 days has ranged from 119/93 to 168/91. Heart rate is within normal limits. Maintaining appropriate oxygen saturation on RA Oral intake - FOOD poor yesterday but ate 75 to 100% of his breakfast this morning. FLUIDS poor Discussed with nursing -has been incontinent of urine Reviewed the THERAPY notes Medication list reviewed. All lab drawn this morning was personally reviewed. White blood cell count is 4.4. Hemoglobin is 10.9 which is up from 9.3 on 04/10/2024 and I suspect this is secondary to intravascular volume depletion. Platelets are within normal limits. Sodium is 139 and the potassium is 3.7. Serum bicarb is normal. The BUN is 15 with a creatinine of 0.87 which is down from 1.01 at admission to the hospital. Magnesium is 1.9 and the phosphorus is 3.3. Calcium is within normal limits. LFTs are normal. B12, TSH and folate all recently normal. Iron studies are normal. LDL is 62 and the HDL is 63. Triglycerides are normal at 83. [facility] Medical History (Updated 04/14/24 @ 12:[address] Jessica Allen DO) Peripheral edema History of prostate cancer HLD (hyperlipidemia) HTN (hypertension) Dementia Atrial fibrillation Sleep apnea Parkinson disease Home Medications ?Medication ?Instructions ?Recorded ?Last Taken ?Type carbidopa 25 mg-levodopa 250 mg 1 tab PO TID parkinson's 08/09/22 04/13/24 History tablet furosemide 20 mg tablet 20 mg PO DAILY water pill 08/09/22 Unknown History memantine 10 mg tablet 10 mg PO BID memory 08/09/22 04/12/24 History potassium chloride 20 mEq 20 meq PO DAILY supplement 02/06/23 Unknown History tablet,extended release donepezil 5 mg tablet 5 mg PO QHS memory 04/09/24 04/12/24 History entacapone 200 mg tablet 200 mg PO TID parkinson's 04/09/24 04/13/24 History losartan 50 mg tablet 50 mg PO DAILY blood pressure 04/09/24 Unknown History omeprazole 20 mg capsule,delayed 20 mg PO DAILY GERD 04/09/24 Unknown History release Allergy/AdvReac Type Severity Reaction Status Date / Time No Known Allergies Allergy Verified 04/09/24 15:56 Family History Mother Alzheimer disease Surgical History History of inguinal hernia repair History of arthroscopy of both knees History of tonsillectomy and adenoidectomy History of ankle surgery H/O prostatectomy H/O cardiac radiofrequency ablation Social History (Updated 04/14/24 @ 12:[address] Jessica Allen DO) household members: spouse and other details: significant other is Kellen Leavitt, also called SANDRA number of children: 0 current occupational status: retired pets and animals: Yes pets and animals: dog(s) Smoking Status: Never smoker alcohol intake: current alcohol intake frequency: a few times a week details: 1 beer with supper a few times a week substance use type: does not use ROS Review of Systems ROS Unobtainable: other Details: Limited ROS due to encephalopathy Constitutional Constitutional: Reports weakness Eyes Eyes: Denies discharge from eye(s), double vision or eye pain ENT HEENT: Denies dysphagia Cardiovascular Cardiovascular: Reports edema; Denies chest pain Respiratory/Chest Respiratory/Chest: Denies cough or shortness of breath at rest Gastrointestinal Gastrointestinal: Denies abdominal pain, constipation, diarrhea, nausea or vomiting Genitourinary Genitourinary: Reports urinary incontinence; Denies dysuria Musculoskeletal Musculoskeletal: Reports muscle weakness and stiffness; Denies extremity pain Integumentary Integumentary: Reports other Details: HAs some bruising of the R arm and the R leg from his fall in the yard prior to admission ; Denies jaundice, rash or wounds Neurologic Neurologic: Reports abnormal gait, confusion and weakness; Denies headache(s) Hematologic/Lymphatic Hematologic/Lymphatic: Reports anemia Vital Signs Vital Signs Vital Signs: 04/13/24 17:07 04/13/24 17:34 04/13/24 21:41 Temperature 100.5 F H Temperature Source Temporal Pulse Rate 77 Pulse Strength Normal (2+) Respiratory Rate 18 Respiratory Effort Normal Non-Labored Respiratory Depth Normal Respiratory Pattern Normal Blood Pressure 126/50 H Blood Pressure Mean 75 Blood Pressure Source Monitor Blood Pressure Position Semi-Fowlers Blood Pressure Location Left Arm Pulse Ox 91 Oxygen Delivery Method Room Air Room Air Oxygen Flow Rate (L/min) 04/13/24 21:41 04/14/24 06:00 Temperature 98.9 F Temperature Source Temporal Pulse Rate 68 Pulse Strength Respiratory Rate 16 16 Respiratory Effort Normal Non-Labored Respiratory Depth Normal Respiratory Pattern Normal Blood Pressure 168/91 H Blood Pressure Mean 116 Blood Pressure Source Monitor Blood Pressure Position Semi-Fowlers Blood Pressure Location Left Forearm Pulse Ox 99 Oxygen Delivery Method Nasal Cannula Nasal Cannula Oxygen Flow Rate (L/min) 2 2 Weight Weight: 168 lb 13.985 oz Body Mass Index (BMI) 25.7 Indicators for Scoring Admitted with or Primary Diagnosis of CVA/Stroke: Yes Hx of CVA/Stroke: Yes Modified [place] Score MRS Score at time of Evaluation: 4-Moderate/severe disability NIHSS NIHSS 1a. Level of Consciousness: Alert; keenly responsive 1b. LOC Questions: Answers neither question correctly. 1c. LOC Commands: Performs both tasks correctly. 2. Best Gaze: Normal 3. Visual: No visual loss 4. Facial Palsy: Normal symmetrical movements 5a. Left Arm: No drift; arm holds 90 (or 45) degrees for full 10 seconds 5b. Right Arm: No drift; arm holds 90 (or 45) degrees for full 10 seconds 6a. Left Leg: No drift; leg holds 30-degree position for full 5 seconds 6b. Right Leg: No drift; leg holds 30-degree position for full 5 seconds 7. Limb Ataxia: Absent 8. Sensory: Normal; no sensory loss 9. Best Language: [id number] aphasia; 10. Dysarthria: Pisc-wb-grcgreab dysarthria; 11. Extinction and Inattention: No abnormality Total: 4 Stroke Questions Stroke Team Activated: No Physical Exam Const alert Constitutional Narrative: Oriented to person and he knows he is in a hospital in [place]. Told me that he is 48 and it is 1973. He is pleasant and appropriate with me. General Appearance: cooperative HEENT normocephalic and head/scalp atraumatic Mouth: dry mucous membranes Eyes PERRL and EOMs intact bilaterally Neck no JVD, No nodes and no carotid bruits General: trachea midline Resp normal respiratory effort, normal air movement and clear to auscultation bilaterally Effort and Inspection: Negative for tachypneic or labored Cardio regular rate, regular rhythm, S1 normal heart sound, S2 normal heart sound, no murmurs, no rub and no gallops Cardio Narrative: No ectopy GI normal to inspection, nondistended, normoactive bowel sounds, soft to palpation and non-tender GI Narrative: No guarding with palpation Extremity no calf tenderness Skin no jaundice General Skin Exam: no breakdown Rashes: no rashes Neuro CN's II-XII intact bilaterally, no focal motor deficits and no sensory deficits noted Coordination / Balance: iniyme-pr-efoc test normal and qzvt-na-ubdb test normal Speech: speech abnormal Details: Positive for other (voice does not project well and he is mumbling at times making it difficult to understand him. NOt sure whether he is having a speech apraxia or aphasia but can not understand some words he is saying. ) Motor Exam: general weakness Psych cooperative Psych Narrative: Pleasant and cooperative. Attitude: No agitated Mood & Affect: Negative for flat affect Thought Content: No suicidality and hallucination(s) Positive for visual Results Lab / Micro Data 04/14/24 06:41 04/14/24 06:41 Labs: Laboratory Results - last 24 hr 04/14/24 06:41: WBC 4.4, RBC 3.52 L, Hgb 10.9 L, Hct 33.6 L, MCV 95.5 H, MCH 31.0, MCHC 32.4, RDW Std Deviation 53.1 H, RDW Coeff of Jessica 15.2 H, Plt Count 209, MPV 9.1, Immature Gran % (Auto) 0.500, Neut % (Auto) 62.8, Lymph % (Auto) 12.4 L, Owsley % (Auto) 18.1 H, Eos % (Auto) 5.3 H, Baso % (Auto) 0.9, Absolute Neuts (auto) 2.7, Absolute Lymphs (auto) 0.54 L, Nucleated RBC % 0, Sodium 139, Potassium 3.7, Chloride 104, Carbon Dioxide 28.0, Anion Gap 7, BUN 15, Creatinine 0.87, Estim Creat Clear Calc 67.70, Est GFR (MDRD) Af Amer 110, Est GFR (MDRD) Non-Af 91, BUN/Creatinine Ratio 17.3, Glucose 80, Calcium 8.7, Phosphorus 3.3, Magnesium 1.9, Total Bilirubin 0.90, AST 36, ALT 17, Alkaline Phosphatase 112, Total Protein 6.5, Albumin 3.0 L, Globulin 3.5, Albumin/Globulin Ratio 0.9 Assessment & Plan Assessment/Plan (1) Debility: (2) Generalized weakness: (3) Physical deconditioning: (4) Stroke: QUALIFIERS: CVA mechanism: unspecified Qualified Code(s): I63.9 - Cerebral infarction, unspecified (5) Hx of Parkinson's disease: (6) Dementia: QUALIFIERS: Dementia type: Parkinson's disease Dementia severity: unspecified severity Dementia behavioral or psychological symptom: without behavioral, psychotic, or mood disturbance or anxiety Qualified Code(s): G20.A1 - Parkinson's disease without dyskinesia, without mention of fluctuations; F02.80 - Dementia in other diseases classified elsewhere, unspecified severity, without behavioral disturbance, psychotic disturbance, mood disturbance, and anxiety (7) Sleep apnea: QUALIFIERS: Sleep apnea type: unspecified type Qualified Code(s): G47.30 - Sleep apnea, unspecified (8) HTN (hypertension): QUALIFIERS: Hypertension type: primary hypertension Qualified Code(s): I10 - Essential (primary) hypertension (9) HLD (hyperlipidemia): QUALIFIERS: Hyperlipidemia type: unspecified Qualified Code(s): E 78.5 - Hyperlipidemia, unspecified (10) Peripheral edema: PLAN: I suspect this is related to immobility/venous insufficiency. EF is normal and he has no diastolic dysfunction. PLAN: Plan PLAN PT for gait stability OT for ADL's ST for evaluation for speech and swallowing. Poor memory and does not project or enunciate. Analgesics as needed Bowel protocol Fall precautions Assess for Anxiety/Depression GI prophylaxis -pantoprazole 20 mg daily DVT prophylaxis with Lovenox Follow up with Dr. Lee, Dr. Lucas and Dr. Meyers following DC from IP Rehab AM lab including CMP, CBC, Mag and Phos - all personally reviewed. DC Lasix. He was dehydrated at admission to the hospital with an increased Creat and he has poor fluid intake at baseline. NL EF and no diastolic dysfunction. Control edema with compression. Dehydration and poor cerebral perfusion may have contributed to the stroke/encephalopathy. If he has another low grade fever will recheck a urine Check PVR's X [address] Meyers, Dr. Lee and Dr. Lucas. Check a Hemoccult stool Allow permissive HTN for the next couple days and then adjust antihypertensives to keep the BP < 140/80 consistently. check orthostatic VS's Charges/Coding Visit Charges Inpatient E&M: 75904 Init Hosp L3
--- NOTE | 2024-04-14 12:45 | REHABEVAL_ITS ---
Admission Information Primary Diagnosis:: Post stroke debility/encephalopathy Status Changes from Prescreening?: No changes Identified Actual Problem List:: Falls, Skin Intergrity, Cognitve Impr/Memory Loss, Bladder Incontinence, Mobility Impaired, Self Care Deficit, BP, Hypertension, Fluid Change-Dehydration and Alteration-Leisure Activ. Potential Problem List:: DVT, Bleeding, Infection, UTI, Aspiration, Falls, Skin Integrity and Depression Risk of Complications DVT: LMWH and NARESH Hose Bleeding: Monitor Lab Values, Nursing to Teach Precautions for anti-coagulation therapy., Wound, if applicable, to be assessed every shift. and Stroke patients assessed for lethargy or change in status. Infection: Clinical Staff to Monitor for S/S of infection: and S/S of infection include fever, redness, warmth, etc. Urinary Tract Infection: Monitor for frequency, burning, discomfort, or incontinence. and Nursing will obtain urine sample for urinalysis and C&S when ordered. Aspiration: Clinical staff will monitor for coughing, drooling, congestion., Speech will evaluate swallowing and dsyphasia. and Nursing will monitor patient swallowing during meals. Falls: Patient will be evaluated for Fall Precautions and Patient will be placed on Fall Precautions as indicated per protocol. Skin Breakdown: Nursing will assess skin daily using assessment tool. and Nursing will place on Skin Breakdown Precautions as indicated. Pain: Clinical staff will assess patient's pain level per protocol., Medications will be given, if needed, and the pain level reassessed. and Other methods: Massage, distraction, decrease stimulus, etc. used PRN. Plan of Care Patient requires physician specializing in physical medicine and rehab oversight to provide close medical supervision of rehab issues including: Pain Management, Sleep Problems, Bowel and Bladder, Medical and co-morbidity Management, DVT prophylaxis, Rehabilitation Leadership and Coordination of treatment team Patient needs Physical Therapy: For a minimum of 1 hour and At least 5 out of 7 days Patient needs Physical Therapy to improve:: Mobility, Strengthening, Transfers, Stretching, ROM, Endurance, Stairs, Gait and Balance Patient needs Occupational Therapy: For a minimum of 1 hour and At least 5 out of 7 days Patient needs Occupational Therapy to improve ADL's incl.: Eating, Grooming, Bathing, Dressing, Toileting, Toilet transfers, Community Reintegration, Higher functioning activities, Household tasks, Adaptive Equipment, Splinting and Other activities as determined Patient requires speech therapy: For a minimum of 1 hour and At least 5 out of 7 days Patient requires speech therapy for: Swallowing, Cognition, Language Skills and Compensatory Strategies Patient requires 24/ Rehabilitation Nursing for: Pain Issues, Identifying and preventing risk factors, Monitoring and reporting current medical conditions, Assisting with ambulation, transfer, and all ADL's, Teaching patients about disease process and medications, Family teaching, Providing safe environment, Bowel and Bladder Issues, Skin integrity and Medication Management Patient needs Senior Fire Protection Engineer/ Case Management for: Discharge Planning, Arranging Home Equipment or Services and Family Interventions Patient needs Dietary and Nutrition Services for: Adequate Nutrition, Nutritional Supplements and Nutritional Education Goals Goals Patient will remain: free from falls Patient will perform eating at: - (Min assist) Patient will perform bed mobility at: - (CGA) Patient will complete transfers from bed to chair at: - (min assist with LRD) Patient will ambulate: - (350 ft with turns using a FWW @ CGA) Patient will complete upper body dressing at: - (Min assist) Patient will complete lower body dressing at: - (Min Assist) Patient will complete toilet transfer at: - (min assist) Patient will complete toileting at: - (min assist) Patient will perform bathing at: - (MIN assist) Patient will perform Tub/Shower transfer at: - (Min assist) Patient will complete grooming at: - (Min assist while seated. ) Patient will achieve: - (He will ascend/descend 3 steps with 1 HR @CGA) Patient will have pain level of: of 3 or less Patient's skin will: remain intact Patient will receive: adequate nutrition. Discharge Planning Pt Prognosis for Sig. Practical Improv. w/in Reasonable Time: Fair Estimated Length of stay (days): 28 Anticipated D/C Destination: TBD Was Preadmission Assessment Accurate?: Yes
[2024-04-14 17:28] VITALS: BP 104/58; PULSE 66; RESP 18; TEMP 36.3; O2SAT 99
[2024-04-14] MEDS: Donepezil HCl 5 MG Tablet PO (20:22)
[2024-04-15] MEDS: Enoxaparin 40 MG/0.4 ML Syringe SC (05:38)
[2024-04-15] MEDS: Carbidopa/Levodopa 25/250 Tablet PO ×3 (05:39→21:30)
[2024-04-15] MEDS: Nystatin Powder 15gm Bottle 1 APPLIC TOPICAL ×2 (05:40→20:37)
[2024-04-15] MEDS: Menthol/Lanolin/Calamine/Znox 113 GM Tube 1 APPLIC TOPICAL ×2 (05:40→20:37)
[2024-04-15 05:43] VITALS: BP 144/80; PULSE 66; RESP 16; TEMP 37; O2SAT 97
[2024-04-15 05:44] VITALS: BMI 25.3
[2024-04-15 08:16] VITALS: BP 101/40; BP 107/42; BP 117/49; PULSE 64; PULSE 66; PULSE 68
[2024-04-15] MEDS: Memantine Hydrochloride 10 MG Tablet PO ×2 (08:51→20:37)
[2024-04-15] MEDS: Losartan Potassium 50 MG Tablet PO (08:51)
[2024-04-15] MEDS: Pantoprazole Sodium 20 MG Tablet PO (08:51)
--- NOTE | 2024-04-15 13:45 | SP.MBSS_ITS ---
Modified Barium Swallow Patient Information Study Date: 04/15/24 Study Time: 11:30 Direct Billable Minutes: 135 Total Minutes procedure & reportin Diagnosis: Parkinson's Disease, CVA Referring Physician: Jessica Allen Reason for Referral: Per [facility] CVA protocol, this patient was evaluated by speech therapy upon admission to acute care 04/10/24 - diagnosed w/ mild oropharyngeal dysphagia w/ recommendations for an easy to chew texture/thin liquid diet w/ the following compensatory swallowing strategies re: FEED ONLY WHEN ALERT, no straws, slow rate of intake, small bites/sips, alternate bite/sip and remain upright for 15- 30 minutes [address] meals. Per Dr. Allen's H&P - reported he does not have trouble swallowing and he is on thin liquids at home.? His cuts his food up into small bites. Objective evaluation of swallow function recommended by speech therapy following the clinical bedside swallow evaluation on 04/14 given dxs of PD and CVA. Medical History: RALF BORRERO, is a 78 y/o male with a PMH of prostate cancer, hyperlipidemia, hypertension, dementia with visual hallucinations, atrial fibrillation, obstructive sleep apnea and Parkinson's disease who presented to the ED at [facility] on 04/09/2024 complaining of sudden onset confusion and inability to speak.? EMS reported right-sided weakness and right facial droop.? A stat noncontrast CT brain showed no acute abnormalities.? CTA of the head and neck was reported as normal.? [facility] teleneurology was consulted.? NIHSS was 10 per their exam.? IV thrombolytic therapy was recommended and the patient and family were agreeable.? ? Per the hospitalist H&P he had been confused with garbled speech for the preceding 2 weeks and was not doing well. He also had BL edema of the LE's.? He was admitted to the ICU. Transthoracic echocardiogram showed a 60% left ventricular ejection fraction with no evidence for diastolic dysfunction and no wall motion abnormalities. Bubble contrast study was negative for a right to left interatrial shunt. The left atrium was mildly enlarged.? There was no significant valvular heart disease.? MRI of the brain was done on 04/10/2024 and showed no MRI evidence of acute or subacute ischemic infarct or remote cortical- based ischemic infarct. There was no significant interval change when compared to an MRI done 08/09/2022.? Teleneurology was reconsulted following the MRI results and at that time his NIH was 1.? They reported that the neuroimaging was normal.? His felt that he was at baseline on 04/10/24.? The most likely cause of the sx at admission was deemed to be acute ischemic stroke.? While in the hospital he had an EEG that was interpreted as mild diffuse encephalopathy with no epileptiform discharges or lateralizing signs.? While in the hospital he was seen by PT/OT/ST and was felt to be deconditioned due to worsening of PD.? Acute rehab was recommended to see if he could improve to the point where he would be able to return home at [place] vs the need to be placed in an alternative living situation.? He was transferred to the acute inpatient rehab unit at [facility] on 04/13/24 for 3 hours of therapy daily to restore function/independence to a point where his family could care for him at home.? Current Diet Ordered: easy to chew textures/thin liquids Dentition: Natural Teeth Mental Status: Impaired (unable to consistently follow commands for compensatory strategy implementation) Respiratory Status: Oxygenating on Room Air Penetration-Aspiration Scale Penetration-Aspiration Scale: OBJECTIVE ASSESSMENT OF SWALLOW FUNCTION (QUANTITATIVE ? PER TRIAL): PENETRATION / ASPIRATION SCALE (ABDUL): 1 = does not enter airway 2 = enters airway/above vocal folds/ejected 3 = enters airway/above vocal folds/not ejected 4 = enters airway/contacts vocal folds/ejected 5 = enters airway/contacts vocal folds/not ejected 6 = enters airway/below vocal folds/ejected 7 = enters airway/below vocal folds/not ejected despite effort 8 = enters airway/below vocal folds/no effort VIDEOFLOROSCOPIC SCALE SCORE (ABDUL): Grade I = aspiration of material that has penetrated into the laryngeal vestibule, intact cough reflex Grade II = aspiration < 10 % of the bolus, intact cough reflex Grade III = aspiration of < 10 % of the bolus, reduced cough reflex or aspiration of > 10 % of the bolus, intact cough reflex Grade IV = aspiration of > 10 % of the bolus, reduced cough reflex Penetration-Aspiration Scale Score Thin Liquid via teaspoon: Result: 4= enters airway/contacts vocal folds/ejected Comment: Trace contrast from the pyriforms entered the laryngeal vestibule posteriorly, transiently contacting the vocal folds before completely ejecting from the airway w/ swallow completion Thin Liquid via teaspoon Trial 2: Result: 4= enters airway/contacts vocal folds/ejected Comment: Trace contrast from the pyriforms entered the laryngeal vestibule posteriorly, transiently contacting the vocal folds before completely ejecting from the airway w/ swallow completion Thin Liquid via large single sip: cup: Result: 3= enters airways/above vocal folds/not ejected Comment: Spillage into the pharynx over the epiglottis, lining the posterior laryngeal surface of the epiglottis prior to swallow onset, prandial penetration above the vocal folds incomplete ejection, trace retention Thin Liquid via single sip: straw: Result: 1= does not enter airway Thin Liquid via single sip: straw Trial 2: Result: 2= enter airway/above vocal folds/ejected Comment: Trace contrast undercoating the epiglottis/lining the aryepiglottic folds, transient penetration w/ complete ejection Pudding via teaspoon: Result: 1= does not enter airway Cookie: Result: 1= does not enter airway Thin Liquid via small single sip: cup Trial 2: Result: 2= enter airway/above vocal folds/ejected Comment: Trace contrast undercoating the epiglottis/lining the aryepiglottic folds, transient penetration w/ complete ejection [place] Thick Liquid via small single sip: cup: Result: 3= enters airways/above vocal folds/not ejected Comment: No penetration w/ initial swallow, penetration above the vocal folds w/out ejection noted w/ second swallow utilized to clear the remainder of the bolus, trace contrast lining the anterior laryngeal vestibule wall Thin Liquid via sequential sips: cup: Result: 8= enters airway/below vocal folds/no effort Comment: Aspiration prior to swallow onset occurred d/t premature spillage/entry into the laryngeal vestibule, contrast contacting and dropping below the vocal folds before swallow onset w/ subsequent sequential swallows resulting in additional penetration during the swallow w/out complete ejection - SILENT ASPIRATION - no response to aspirate; Grade III = aspiration of < 10 % of the bolus, reduced cough reflex Oral Phase Labial Seal: Escape beyond interlabial space; no extension beyond marian border Tongue Control During Bolus Hold: Posterior escape of less than half of bolus Bolus Preparation/Mastication: Timely and efficient chewing and mashing Bolus Transport/Lingual Motion: Repetitive/disorganized tongue motion Oral Residue: Trace residue lining oral structures Pharyngeal Phase Initiation of Pharyngeal Swallow: Bolus head in pyriforms Soft Palate Elevation: No bolus between soft palate and pharyngeal wall Laryngeal Elevation: Partial superior movement thyroid cart/partial apprx aryt-epig petiole Anterior Hyoid Excursion: Partial anterior movement Epiglottic Movement: Complete inversion Laryngeal Vestibule Closure at Height of Swallow: Incomplete; narrow column of air/contrast in laryngeal vestibule Pharyngeal Stripping Wave: Present - diminished Pharyngoesophageal Segment Opening: Complete distension and complete duration; no obstruction of flow Tongue Base Retraction: Narrow column of contrast between tongue base & post. pharyngeal wall Pharyngeal Residue: Trace residue within or on pharyngeal structures Esophageal Phase Esophageal Clearance: Esophageal retention Diagnosis/Impression Diagnosis: mild-moderate oropharyngeal dysphagia Impression: Oropharyngeal swallow function is characterized by: * Disorganized oral holding w/ repetitive lingual rocking during AP bolus transportation * Spillage/pooling of thin liquids into the pharynx (vallecula/pyriforms) prior to initiation of pharyngeal swallow onset? * Laryngeal vestibule penetration before the swallow and during the swallow w/ SILENT ASPIRATION w/ sequential swallows of thin liquid via cup * Reduced liquid bolus volume was effective to reduce penetration/eliminate aspiration * A cued cough and reswallow was not effective to expel aspirate from the trachea/laryngeal vestibule (unable to consistently implement strategy despite max cues) Esophageal phase is characterized by: * Retention was noted during esophageal screening w/out retrograde bolus flow. Recommendations Diet: Regular Textures (Easy to chew textures) and Thin Liquids Compensatory Strategies: Small Bites, Small Sips (one sip at a time via cup or straw, NO SEQUENTIAL SWALLOWS), Slow Rate, Alternate bites/solids and sips/liquids, Sitting upright and Assist with verbal cues to use recommended strategies Supervision: Distant Supervision Recommend Repeat Modified Barium Swallow: TBD Comment: Repeat MBSS as clinically appropriate if deterioration in swallow function is ap preciated. Need for Skilled Speech Therapy Services: Yes Comment: Skilled ST intervention recommended for further instruction w/ compensatory strategies to reduce aspiration risk and to initiate oropharyngeal strengthening exercises to reduce further decline in swallow function associated w/ progressive neurological disease diagnosis of Parkinson's. Education Completed: 1. Described result of evaluation. and 7. Pt requires further education on strategies & risks. Comment: Nursing communication entered to convey recommendations/supervision/strategy needs. Status Active ST Patient: Active Contact Information [facility] Speech Therapy:: Josiane Irving M.A. [facility]-SIGNAL TOWER DIRECTOR Speech-Language Pathologist [address] [place] [address] [email or web address] [phone]
[2024-04-15 17:23] VITALS: BP 132/77; PULSE 61; RESP 20; TEMP 36.8; O2SAT 95
[2024-04-15] MEDS: Donepezil HCl 5 MG Tablet PO (20:37)
[2024-04-16] MEDS: Nystatin Powder 15gm Bottle 1 APPLIC TOPICAL ×2 (04:45→19:40)
[2024-04-16] MEDS: Enoxaparin 40 MG/0.4 ML Syringe SC (04:45)
[2024-04-16] MEDS: Menthol/Lanolin/Calamine/Znox 113 GM Tube 1 APPLIC TOPICAL ×2 (04:45→19:39)
[2024-04-16 06:00] VITALS: BP 150/85; PULSE 68; RESP 19; TEMP 36.7; O2SAT 96
[2024-04-16] MEDS: Carbidopa/Levodopa 25/250 Tablet PO ×4 (06:47→19:33)
[2024-04-16 08:00] VITALS: O2SAT 96
[2024-04-16] MEDS: Losartan Potassium 50 MG Tablet PO (08:26)
[2024-04-16] MEDS: Pantoprazole Sodium 20 MG Tablet PO (08:27)
[2024-04-16] MEDS: Memantine Hydrochloride 10 MG Tablet PO ×2 (08:27→19:40)
--- NOTE | 2024-04-16 10:31 | PN_ITS ---
Subjective Subjective Ras was seen on TEAM rounds today. Afebrile VSS - BP is improving...over the past 24 hours it has ranged from 117/49 to 150/85. Orthostatics were borderline + yesterday. Maintaining appropriate oxygen saturation on RA Oral intake - FOOD good FLUIDS highly variable. Requires a lot of encouragement to drink fluids. Weight is down approximately 2 pounds since admission. Postvoid residuals were 68, 240 and 90. Discussed with nursing - continues to be incontinent of urine. Max assist to change Depends. He was up most of the night last night, attempting to stand at bedside, crawling out of bed, very restless. Has been agitated with staff at times. Reviewed the THERAPY notes - He is having a very hard time following directions and therapists using voice cues and tactile cues to help him. Sometimes requiring hand over hand assist to follow directions. Medication list reviewed. Intermittently drowsy and needing a lot of assistance to alert and cooperative with better participation in therapy. He denies pain, SOB, nausea, burning with urination. ROS is limited due to dementia/encephalopathy. Objective Data Objective Data Vital Signs: Vital Signs Temp Pulse Resp BP Pulse Ox O2 Del Method O2 Flow Rate 98.0 F 68 19 H 150/85 H 96 Room Air 2 04/16/24 06:00 04/16/24 06:00 04/16/24 06:00 04/16/24 06:00 04/16/24 08:00 04/16/24 08:00 04/15/24 05:43 Oxygen Flow Rate (L/min) 2 Oxygen Delivery Method Room Air Weight: 166 lb 10.711 oz Body Mass Index (BMI) 25.3 Intake & Output: Intake and Output for Last 24 Hours 04/14/24 04/15/24 04/16/24 23:59 23:59 23:59 Intake Total 615 / 615 1450 / 1650 440 / 440 Output Total 250 / 250 200 / 800 900 / 900 Balance 365 / 365 1250 / 850 -460 / -460 Lab / Micro Data 04/14/24 06:41 04/14/24 06:41 Micro: Microbiology 04/14/24 14:00 Stool Stool Occult Blood (ADDIS) - Final Physical Exam Const alert Constitutional Narrative: Alternating periods of being alert and cooperative and being drowsy and non- cooperative. Attempting to crawl out of bed frequently. General Appearance: cooperative HEENT normocephalic and head/scalp atraumatic Mouth: dry mucous membranes Eyes PERRL and EOMs intact bilaterally Neck no JVD, No nodes and no carotid bruits General: trachea midline Resp normal respiratory effort, normal air movement and clear to auscultation bilaterally Effort and Inspection: Negative for tachypneic or labored Cardio regular rate, regular rhythm, S1 normal heart sound, S2 normal heart sound, no murmurs, no rub and no gallops Cardio Narrative: No ectopy GI normal to inspection, nondistended, normoactive bowel sounds, soft to palpation and non-tender GI Narrative: No guarding with palpation Extremity no calf tenderness Skin no jaundice General Skin Exam: no breakdown Rashes: no rashes Wound Narrative: Ecchymosis is resolving Neuro CN's II-XII intact bilaterally, no focal motor deficits and no sensory deficits noted Neuro Narrative: Needing a lot of voice cues and physical cuing to get him to do what the therapist's want of him. Shuffling gait. Masked facies. Poor enunciation and projection of the voice. Had silent aspiration on thins on the MBS. Can manage to get himself to the end of bed and is trying to crawl around the railings. Alarms are in place. Coordination / Balance: [id number] test normal and [id number] test normal Speech: speech abnormal Details: Positive for other (voice does not project well and he is mumbling at times making it difficult to understand him. NOt sure whether he is having a speech apraxia or aphasia but can not understand some words he is saying. ) Motor Exam: general weakness Psych cooperative Psych Narrative: Pleasant and cooperative. Attitude: No agitated Mood & Affect: Negative for flat affect Thought Content: No suicidality and hallucination(s) Positive for visual Assessment & Plan Assessment/Plan (1) Debility: (2) Generalized weakness: (3) Physical deconditioning: (4) Stroke: QUALIFIERS: CVA mechanism: unspecified Qualified Code(s): I63.9 - Cerebral infarction, unspecified (5) Hx of Parkinson's disease: (6) Dementia: QUALIFIERS: Dementia type: Parkinson's disease Dementia severity: unspecified severity Dementia behavioral or psychological symptom: without behavioral, psychotic, or mood disturbance or anxiety Qualified Code(s): G20.A1 - Parkinson's disease without dyskinesia, without mention of fluctuations; F02.80 - Dementia in other diseases classified elsewhere, unspecified severity, without behavioral disturbance, psychotic disturbance, mood disturbance, and anxiety PLAN: Dementia is much worse than we were lead to believe at admission. has essentially been assisting him with everything at home. She had shoulder surgery recently and will not be able to provide much assist for the next few months. He needs 24/7 supervision/assist. Unless he makes some remarkable progress in the next few weeks he will likely need place in an ECF at [place]. (7) Sleep apnea: QUALIFIERS: Sleep apnea type: unspecified type Qualified Code(s): G47.30 - Sleep apnea, unspecified PLAN: Wears O2 at night. (8) HTN (hypertension): QUALIFIERS: Hypertension type: primary hypertension Qualified Code(s): I10 - Essential (primary) hypertension (9) HLD (hyperlipidemia): QUALIFIERS: Hyperlipidemia type: unspecified Qualified Code(s): E 78.5 - Hyperlipidemia, unspecified (10) Peripheral edema: (11) Silent aspiration: PLAN: Plan 1. Continue therapy 2. Add Seroquel 25 mg nightly for behavioral issues including restlessness and at night and agitation. His told me earlier this week that she feels he sundown's because he gets much more confused in the evening. 3. Continue to encourage increased fluid intake. 4. Informed Kellen Leavitt that we do not feel she will be able to provide adequate assistance at home without a lot of help. SW is to assist with planning for ID. I suspect he will need an ECF at ID and if not The time will come very soon. 5. After discussing the results of the MBS The ST, Kellen Leavitt and myself agree that he should remain on thin liquids with small sips. His oral fluid intake is already poor and thickening his liquids will only make it worse. Has not had recurrent PNA or URI's. Charges/Coding Visit Charges Inpatient E&M: 64195 Subs Hosp L2
--- NOTE | 2024-04-16 13:10 | CASEMGMT ---
Social Work IDT met with patient and conference call for Team meeting. Discussed patient's progress in PT/OT/ST/SN. Educated to Medicare approval for 22 days with DC 05/05. Pt is a total assist with two people, silently aspirating, difficulty with comprehension and poor safety awareness. At this time and given history prior to stroke, IDT is recommending 22/04 care at a SNF. SW requested to schedule an appt to speak in-person with on DC planning options. agreeable. is currently recovering from being sick and has not been visiting. stated she has her surgery f/u appt on 04/22. SW requested for to contact this worker when feeling better to schedule an appt. agreed. Will ReTeam weekly. Will continue to follow. TUCKER DormanW
[2024-04-16 17:27] VITALS: BP 122/65; PULSE 60; RESP 16; TEMP 36.8; O2SAT 95
[2024-04-16] MEDS: Donepezil HCl 5 MG Tablet PO (19:39)
[2024-04-16] MEDS: QUEtiapine 25 MG Tablet PO (19:40)
[2024-04-16 22:00] VITALS: RESP 15; O2SAT 94
--- NOTE | 2024-04-16 23:41 | NURSING ---
PT STILL SETTING OFF ALARMS AND FOUND WITH HOSPITAL GOWN REMOVED AND LEGS OVER SIDE OF BED. PT'S ARMS ARE REACHING IN THE AIR AND VERY FIDGETY. PT CHECKED FOR INCONTINENCE AND ENCOURAGED TO TRY TO GET SOME SLEEP.
[2024-04-17] MEDS: Menthol/Lanolin/Calamine/Znox 113 GM Tube 1 APPLIC TOPICAL ×2 (00:51→20:11)
[2024-04-17 06:00] VITALS: BP 149/76; PULSE 66; RESP 16; TEMP 36.7; O2SAT 95
[2024-04-17] MEDS: Enoxaparin 40 MG/0.4 ML Syringe SC (06:00)
[2024-04-17] MEDS: Nystatin Powder 15gm Bottle 1 APPLIC TOPICAL ×2 (06:52→20:12)
[2024-04-17 07:46] VITALS: O2SAT 96
[2024-04-17] MEDS: Losartan Potassium 50 MG Tablet PO (09:24)
[2024-04-17] MEDS: Pantoprazole Sodium 20 MG Tablet PO (09:24)
[2024-04-17] MEDS: Memantine Hydrochloride 10 MG Tablet PO ×2 (09:24→20:08)
[2024-04-17] MEDS: Carbidopa/Levodopa 25/250 Tablet PO ×4 (09:24→20:07)
[2024-04-17] MEDS: Senna/Docusate Sodium 1 Tablet 2 TABLET PO ×2 (09:25→20:13)
--- NOTE | 2024-04-17 14:41 | EKG12_ITS ---
Test Reason : ABN EKG Blood Pressure : / mmHG Vent. Rate : 053 BPM Atrial Rate : 053 BPM P-R Int : 228 ms QRS Dur : 102 ms QT Int : 482 ms P-R-T Axes : 069 -18 -02 degrees QTc Int : 452 ms Sinus bradycardia with 1st degree A-V block Minimal voltage criteria for LVH, may be normal variant ( R in aVL ) Borderline ECG When compared with ECG of 09-APR-2024 15:15, Vent. rate has decreased BY 28 BPM Confirmed by JAMES AGUSTIN, LUKE ([id number]), writer editor ROSAURA GRUBBS ([id number]) on 04/20/2024 1:01:17 PM Referred By: Jessica Allen Confirmed By:LUKE RAMIREZ MD
[2024-04-17 17:30] VITALS: BP 138/73; PULSE 81; RESP 16; TEMP 37.1; O2SAT 95
[2024-04-17] MEDS: Donepezil HCl 5 MG Tablet PO (20:08)
[2024-04-17] MEDS: QUEtiapine 25 MG Tablet PO ×2 (20:13→22:41)
[2024-04-17 22:00] VITALS: RESP 15; O2SAT 95
--- NOTE | 2024-04-18 00:55 | NURSING ---
Pt restless at shift change and Seroquel 22:00 dose given early, per Dr Hernandez verbal order. Dr Hernandez gave new order for x1 dose of Seroquel if pt is still restless at 22:00. Pt kicking legs over side of bed and attempting to get out of bed. Staff has repositioned pt several times. x1 dose of Seroquel given and pt is now resting with soft snoring heard at 00:45. Pt is not grasping at the air at this point as he had done the previous hs and appears very relaxed.
[2024-04-18 05:38] VITALS: BP 143/85; PULSE 104; RESP 15; TEMP 36.4; O2SAT 93
[2024-04-18] MEDS: Menthol/Lanolin/Calamine/Znox 113 GM Tube 1 APPLIC TOPICAL ×2 (05:41→20:52)
[2024-04-18] MEDS: Enoxaparin 40 MG/0.4 ML Syringe SC (05:43)
[2024-04-18] MEDS: Nystatin Powder 15gm Bottle 1 APPLIC TOPICAL ×2 (05:43→20:52)
[2024-04-18 07:46] VITALS: O2SAT 96
[2024-04-18] MEDS: Senna/Docusate Sodium 1 Tablet 2 TABLET PO ×2 (08:48→20:49)
[2024-04-18] MEDS: Memantine Hydrochloride 10 MG Tablet PO ×2 (08:48→20:49)
[2024-04-18] MEDS: Losartan Potassium 50 MG Tablet PO (08:49)
[2024-04-18] MEDS: Carbidopa/Levodopa 25/250 Tablet PO ×4 (08:49→20:50)
[2024-04-18] MEDS: Pantoprazole Sodium 20 MG Tablet PO (08:51)
[2024-04-18 18:00] VITALS: BP 157/90; PULSE 52; RESP 16; TEMP 36.1; O2SAT 96
[2024-04-18 20:00] VITALS: RESP 18
[2024-04-18] MEDS: Donepezil HCl 5 MG Tablet PO (20:49)
[2024-04-18] MEDS: QUEtiapine 25 MG Tablet 50 MG PO (20:50)
[2024-04-19 05:15] VITALS: RESP 18
[2024-04-19] MEDS: Enoxaparin 40 MG/0.4 ML Syringe SC (05:23)
[2024-04-19] MEDS: Menthol/Lanolin/Calamine/Znox 113 GM Tube 1 APPLIC TOPICAL ×2 (05:24→19:40)
[2024-04-19] MEDS: Nystatin Powder 15gm Bottle 1 APPLIC TOPICAL ×2 (05:24→19:40)
[2024-04-19 05:45] VITALS: BP 131/81; PULSE 59; RESP 18; TEMP 36.1; O2SAT 97
[2024-04-19] MEDS: Losartan Potassium 50 MG Tablet PO (08:29)
[2024-04-19] MEDS: Carbidopa/Levodopa 25/250 Tablet PO ×4 (08:29→19:37)
[2024-04-19] MEDS: Senna/Docusate Sodium 1 Tablet 2 TABLET PO (08:29)
[2024-04-19] MEDS: Memantine Hydrochloride 10 MG Tablet PO ×2 (08:29→19:38)
[2024-04-19] MEDS: Pantoprazole Sodium 20 MG Tablet PO (08:29)
[2024-04-19] MEDS: Acetaminophen 325 MG Tablet 650 MG PO (12:18)
[2024-04-19 18:00] VITALS: BP 133/89; PULSE 60; RESP 16; TEMP 36; O2SAT 97
[2024-04-19] MEDS: QUEtiapine 25 MG Tablet 50 MG PO (19:37)
[2024-04-19] MEDS: Donepezil HCl 5 MG Tablet PO (19:38)
[2024-04-20 06:00] VITALS: BP 155/81; PULSE 65; RESP 18; TEMP 36.6; O2SAT 98
[2024-04-20] MEDS: Enoxaparin 40 MG/0.4 ML Syringe SC (06:27)
[2024-04-20] MEDS: Menthol/Lanolin/Calamine/Znox 113 GM Tube 1 APPLIC TOPICAL ×2 (06:28→19:47)
[2024-04-20] MEDS: Nystatin Powder 15gm Bottle 1 APPLIC TOPICAL ×2 (06:28→19:48)
[2024-04-20] MEDS: Memantine Hydrochloride 10 MG Tablet PO ×2 (08:46→19:47)
[2024-04-20] MEDS: Senna/Docusate Sodium 1 Tablet 2 TABLET PO ×2 (08:46→19:54)
[2024-04-20] MEDS: Losartan Potassium 50 MG Tablet PO ×2 (08:46→12:07)
[2024-04-20] MEDS: Carbidopa/Levodopa 25/250 Tablet PO ×4 (08:46→19:46)
[2024-04-20] MEDS: Pantoprazole Sodium 20 MG Tablet PO (08:46)
--- NOTE | 2024-04-20 09:10 | CASEMGMT ---
Addendum entered by Danielle Ruiz 04/23/24 11:08: SW attempted twice to phone but both voicemail boxes are full. Team meeting is scheduled today. SW will discuss with at the meeting, if present. Addendum entered by Danielle Ruiz 04/21/24 14:53: [facility] beds available; [facility] denied; [facility] reviewing; [facility] requesting to complete onsite next week after further therapy. SW to continue to follow. Original Note: Social Work Received phone call from explaining she has spoken to pt's family and all have decided pt will need to DC to a SNF. states she is unable to care for pt. SW sent SNF list in preferred area with quality and resource data via [employer] Guide link to . requesting referrals to all 4 SNFs in [place]. SW educated to pt transferring skilled under [facility] benefit initially, but after pt would be responsible for room and board OOP. stated she has already spoken to their banker and money will be provided to the facility when needed. appreciative of SW assistance. SW placed referrals to [facility], [facility], [facility] and [facility] via [facility]. Will await outcomes. TUCKER Dorman
[2024-04-20 09:59] VITALS: RESP 16; O2SAT 96
--- NOTE | 2024-04-20 11:09 | PN_ITS ---
Subjective Subjective Afebrile VSS -blood pressure is not at goal. The blood pressure since Saturday a.m. has ranged from 131/81 to 157/90. Heart rate is ranged from 52-65. Maintaining appropriate oxygen saturation on RA Oral intake - FOOD excellent FLUIDS adequate most of the time Discussed with nursing - Incontinent of urine. slept better last night. Seroquel had to be increased to 50 mg at HS for him to be able to settle down and sleep. Still setting off the bed alarms today trying to get out of bed. Reviewed the THERAPY notes -requiring assist of 2 for toileting. Having maximum difficulty understanding cues given by the therapists. Continues to have a lot of difficulty following commands. Medication list reviewed. Coughing on his own oral secretions at times. Known to silently aspirate. Denies pain today and also denies SOB and Lightheadedness. He seems drowsy this AM. Objective Data Objective Data Vital Signs: Vital Signs Temp Pulse Resp BP Pulse Ox O2 Del Method O2 Flow Rate 97.8 F 65 16 155/81 H 96 Room Air 2 04/20/24 06:00 04/20/24 06:00 04/20/24 09:59 04/20/24 06:00 04/20/24 09:59 04/20/24 09:59 04/15/24 05:43 Oxygen Flow Rate (L/min) 2 Oxygen Delivery Method Room Air Weight: 166 lb 10.711 oz Body Mass Index (BMI) 25.3 Intake & Output: Intake and Output for Last 24 Hours 04/18/24 04/19/24 04/20/24 23:59 23:59 23:59 Intake Total 1430 / 1670 1580 / 1580 720 / 720 Output Total 200 / 400 200 / 200 300 / 300 Balance 1230 / 1270 1380 / 1380 420 / 420 Lab / Micro Data 04/14/24 06:41 04/14/24 06:41 Micro: Microbiology 04/14/24 14:00 Stool Stool Occult Blood (ADDIS) - Final Physical Exam Const Constitutional Narrative: Drowsy. Not very talkative. Sometimes cooperative and other times not. Still attempting to get out of bed by himself. Setting alarms off frequently. HEENT Mouth: dry mucous membranes Resp Resp Narrative: Occasional wet cough. Not tachypneic. Respirations are not labored. Lying flat without any difficulty breathing. Cardio regular rate, regular rhythm and no gallops GI normal to inspection, nondistended, normoactive bowel sounds, soft to palpation and non-tender GI Narrative: No guarding with palpation. Extremity General Extremity: Negative for edema Skin Rashes: no rashes Assessment & Plan Assessment/Plan (1) Debility: (2) Generalized weakness: (3) Physical deconditioning: (4) Stroke: QUALIFIERS: CVA mechanism: unspecified Qualified Code(s): I63.9 - Cerebral infarction, unspecified (5) Hx of Parkinson's disease: (6) Dementia: QUALIFIERS: Dementia type: Parkinson's disease Dementia severity: unspecified severity Dementia behavioral or psychological symptom: without behavioral, psychotic, or mood disturbance or anxiety Qualified Code(s): G20.A1 - Parkinson's disease without dyskinesia, without mention of fluctuations; F02.80 - Dementia in other diseases classified elsewhere, unspecified severity, without behavioral disturbance, psychotic disturbance, mood disturbance, and anxiety PLAN: Severe with behavioral problems. (7) Sleep apnea: QUALIFIERS: Sleep apnea type: unspecified type Qualified Code(s): G47.30 - Sleep apnea, unspecified (8) HTN (hypertension): QUALIFIERS: Hypertension type: primary hypertension Qualified Code(s): I10 - Essential (primary) hypertension (9) HLD (hyperlipidemia): QUALIFIERS: Hyperlipidemia type: unspecified Qualified Code(s): E 78.5 - Hyperlipidemia, unspecified (10) Peripheral edema: (11) Silent aspiration: QUALIFIERS: Encounter type: subsequent encounter Qualified Code(s): T17.900D - Unspecified foreign body in respiratory tract, part unspecified causing asphyxiation, subsequent encounter PLAN: Plan 1. Continue therapy 2. Change the Seroquel to 8 PM at night and continue 50 mg for now. Will try to decrease to 37.5 later in the week after he has had a couple good nights of sleep. 3. CBC, BMP and magnesium in the a.m. 4. Plan meeting with his to discuss plans at [place]. He will need placed. He needs much more assistance than she is able to provide. 5. Increase losartan to 100 mg daily for better blood pressure control. Goal is less than 130/80. Charges/Coding Visit Charges Inpatient E&M: 62578 Subs Hosp L1
[2024-04-20 17:26] VITALS: BP 103/62; PULSE 75; RESP 16; TEMP 36.7; O2SAT 93
[2024-04-20] MEDS: QUEtiapine 25 MG Tablet 50 MG PO (19:46)
[2024-04-20] MEDS: Donepezil HCl 5 MG Tablet PO (19:46)
[2024-04-20 20:45] VITALS: PULSE 75; RESP 15; O2SAT 94
[2024-04-21] MEDS: Haloperidol Lactate 5 MG/ML Vial 1 MG IM (01:08)
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
--- NOTE | 2024-04-21 01:26 | PCM.HOSP.N ---
Hospitalist Note Code beto called overhead for patient around 0030. Arrived at bedside shortly after. Patient has history of Parkinson's dementia with hallucinations. He was laying back in bed but throwing punches into the air and kicking his legs. Per nursing staff, patient has had some agitation with hallucinations during previous nights while here but nothing to this extent. He did throw punches specifically at staff if others got close to him. Unfortunately, medication options for delirium are fairly limited for an older gentleman with Parkinson's dementia. Opted to give IM Haldol 1 mg. Patient calmed down well only a few minutes after the Haldol was given. Will continue to monitor and attempt redirection going forward, with low-dose Haldol to be used as a last resort.
[2024-04-21] MEDS: Nystatin Powder 15gm Bottle 1 APPLIC TOPICAL ×2 (05:48→19:51)
[2024-04-21] MEDS: Menthol/Lanolin/Calamine/Znox 113 GM Tube 1 APPLIC TOPICAL ×2 (05:48→19:51)
[2024-04-21] MEDS: Senna/Docusate Sodium 1 Tablet 2 TABLET PO ×2 (09:55→19:51)
[2024-04-21] MEDS: Losartan Potassium 100 MG Tablet PO (09:55)
[2024-04-21] MEDS: Pantoprazole Sodium 20 MG Tablet PO (09:55)
[2024-04-21] MEDS: Carbidopa/Levodopa 25/250 Tablet PO ×2 (09:56→15:52)
[2024-04-21 10:00] VITALS: PULSE 71; RESP 16; O2SAT 100
[2024-04-21 10:45] VITALS: BP 124/82; PULSE 71; RESP 16; TEMP 36.7; O2SAT 100
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
[2024-04-21 13:41] LABS: Bacteria 0 SEEN /hpf (None Seen); Mucous, Urine 0 SEEN /hpf (<or=2+); Red Blood Cells-Urine 0 SEEN /hpf (0-5)
[2024-04-21] MEDS: Memantine Hydrochloride 10 MG Tablet PO ×2 (13:43→19:51)
[2024-04-21 13:44] LABS: Color, Urine Yellow (Yellow); Glucose, Dipstick Normal (Normal); Ketone-Dipstick Negative (Negative); Leukocyte Esterase-Dipstick Negative /ul (Negative); Nitrite-Dipstick Negative (Negative); Occult Blood-Urine Negative /ul (Negative); Protein-Dipstick Negative (Negative); Urine Bilirubin Dipstick Negative (Negative); Urine Clarity Clear (Clear); Urine Urobilinogen Normal (Normal); Urine pH 6.5 (5.0 - 8.0)
[2024-04-21 13:49] LABS: Squamous Epithelial Cells - UA 0-5 SEEN /hpf (0-5); White Blood Cells 0-5 SEEN /hpf (0-5)
[2024-04-21 15:26] LABS: Absolute Lymphocyte Count 0.89 X10^3/uL (0.83-4.51); Absolute Neutrophil Count 3.8 X10^3/uL (2.0-7.7); Basophil# 0.03 X10^3/uL; Basophil% 0.5 % (0-1); Eosinophil# 0.26 X10^3/uL; Eosinophils% 4.7 % (0-5); Hematocrit 34.5 % (40-54); Hemoglobin 11.1 g/dL (13.0-16.5); Lymphocyte # 0.89 X10^3/ul (0.83-4.51); Lymphocyte % 16.2 % (19-41); Mean Corp Hgb Conc 32.2 g/dL (32-36); Mean Corpuscular Volume 96.4 fL (80-94); Mean Platelet Vol. 9.4 fl (6.2-12.0); Monocyte# 0.54 X10^3/uL; Monocyte% 9.8 % (0-10); NRBC Flagged by Analyzer 0 % (0-5); Neutrophil # 3.75 X10^3/uL (2.7-7.7); Neutrophil % 68.4 % (47-70); Platelet Count 305 K/mm3 (150-450); RBC Distribution Width CV 16.3 % (11.6-14.6); RBC Distribution Width SD 57.6 fl (35.1-43.9); Red Blood Count 3.58 M/mm3 (4.6-6.2); White Blood Count 5.5 K/mm3 (4.4-11.0)
--- NOTE | 2024-04-21 16:00 | NURSING ---
Replies yes when asked if his name is Ras. took med fair with apple sauce need queing. denies pain. hand tremor and times upper body tremors. Has a moist strong cough. He is softly humming.
[2024-04-21 16:13] LABS: ALB/GLOB Ratio 0.8 RATIO (0.9-2.4); AST(SGOT) 42 U/L (15-37); Alanine Aminotransfer ALT/SGPT 16 U/L (16-61); Albumin, Serum 2.8 g/dL (3.2-5.0); Alkaline Phosphatase 108 U/L (45-117); Anion Gap 8 (5-15); BUN 20 mg/dL (7-18); Calcium,Total 8.9 mg/dL (8.5-10.1); Chloride 107 mmol/L (98-107); EST Glomerular Filtration Rate 99 mL/min (>60); Est Glom Filt Rate - Afr Amer 120 mL/min (>60); Estimated Creatinine Clearance 73.63 ml/min; Globulin 3.6 g/dL (2.2-4.2); Glucose 88 mg/dL (74-106); Potassium 3.8 mmol/L (3.5-5.1); Protein, Total 6.4 g/dL (6.4-8.2); Sodium Level 142 mmol/L (136-145)
[2024-04-21 17:29] VITALS: BP 154/88; PULSE 98; RESP 17; TEMP 36.7; O2SAT 92
--- NOTE | 2024-04-21 18:10 | RAD_ITS ---
EXAM: XR CHEST, 1 VIEW CLINICAL INDICATION: cough TECHNIQUE: Frontal view of the chest. COMPARISON: 03/30/2024 FINDINGS: LUNGS AND PLEURAL SPACES: Not optimal patient positioning. The patient''s hand overlies the basilar chest. No pneumothorax. No effusion. HEART: Cardiomegaly and/or pericardial effusion similar to prior examination. MEDIASTINUM: Central airways and mediastinal contour are unremarkable. BONES/JOINTS: Degenerative changes in the spine and shoulders. No acute fracture. SOFT TISSUES: No significant abnormality. VASCULATURE: Atherosclerosis. RAD/Chest 1 View (Portable) IMPRESSION: 1. Cardiomegaly and/or pericardial effusion similar to prior examination. 2. Not optimal patient positioning. The patient''s hand overlies the basilar chest. Electronically Signed: Rob Salcedo DO at 18:38 EDT ,
[2024-04-21] MEDS: QUEtiapine 25 MG Tablet 50 MG PO (19:36)
[2024-04-21] MEDS: Donepezil HCl 5 MG Tablet PO (19:51)
[2024-04-21 19:58] VITALS: PULSE 98; RESP 16; O2SAT 100
[2024-04-22 06:00] VITALS: BP 156/81; PULSE 59; RESP 15; TEMP 36.6; O2SAT 94; BMI 24.1
[2024-04-22] MEDS: Enoxaparin 40 MG/0.4 ML Syringe SC (06:54)
[2024-04-22] MEDS: Menthol/Lanolin/Calamine/Znox 113 GM Tube 1 APPLIC TOPICAL ×2 (06:56→20:14)
[2024-04-22] MEDS: Nystatin Powder 15gm Bottle 1 APPLIC TOPICAL ×2 (06:56→20:15)
[2024-04-22] MEDS: Carbidopa/Levodopa 25/250 Tablet PO ×3 (07:05→16:52)
[2024-04-22] MEDS: Losartan Potassium 100 MG Tablet PO (11:03)
[2024-04-22] MEDS: Memantine Hydrochloride 10 MG Tablet PO ×2 (11:03→20:17)
[2024-04-22] MEDS: Senna/Docusate Sodium 1 Tablet 2 TABLET PO ×2 (11:03→20:17)
[2024-04-22] MEDS: Pantoprazole Sodium 20 MG Tablet PO (11:03)
[2024-04-22 17:57] VITALS: BP 155/83; PULSE 107; RESP 17; TEMP 36.6; O2SAT 97
[2024-04-22] MEDS: QUEtiapine 25 MG Tablet 50 MG PO (20:03)
[2024-04-22] MEDS: Donepezil HCl 5 MG Tablet PO (20:17)
[2024-04-22 20:28] VITALS: BMI 24.1
[2024-04-22 22:00] VITALS: RESP 15; O2SAT 95
[2024-04-23 05:51] VITALS: BP 149/78; PULSE 80; RESP 16; TEMP 36.4; O2SAT 96
[2024-04-23] MEDS: Carbidopa/Levodopa 25/250 Tablet PO ×3 (06:42→16:44)
[2024-04-23] MEDS: Enoxaparin 40 MG/0.4 ML Syringe SC (06:42)
[2024-04-23] MEDS: Nystatin Powder 15gm Bottle 1 APPLIC TOPICAL ×2 (06:43→19:50)
[2024-04-23] MEDS: Menthol/Lanolin/Calamine/Znox 113 GM Tube 1 APPLIC TOPICAL ×2 (06:44→19:50)
[2024-04-23 08:15] VITALS: BP 59/47
[2024-04-23 08:30] VITALS: BP 105/59; PULSE 69
[2024-04-23] MEDS: 0.9% Normal Saline (500mL Bag) 500 ML 999 ML IV (08:45)
[2024-04-23] MEDS: 0.9% Saline Lock 10 ML Syringe IV (09:04)
[2024-04-23] MEDS: Pantoprazole Sodium 20 MG Tablet PO (09:10)
[2024-04-23] MEDS: Memantine Hydrochloride 10 MG Tablet PO ×2 (09:10→20:38)
[2024-04-23] MEDS: Senna/Docusate Sodium 1 Tablet 2 TABLET PO ×2 (09:10→20:38)
[2024-04-23] MEDS: 0.9% Normal Saline (1000mL) 1,000 ML 100 ML IV ×2 (09:46→19:47)
[2024-04-23 09:50] VITALS: BMI 24.1
--- NOTE | 2024-04-23 10:11 | PN_ITS ---
Subjective Subjective Ras was seen on team rounds today. His Laly participated by phone. Afebrile VSS -blood pressure dropped with sitting up this morning and standing. He had a near syncopal episode and the blood pressure at that time was 59/47. Maintaining appropriate oxygen saturation on RA Oral intake - FOOD good FLUIDS highly variable depending on his level of consciousness. On 04/21/2024 he only had 480 cc and. Discussed with nursing - no problems that need addressed Reviewed the THERAPY notes - Was much more alert and cooperative with therapy yesterday and today Medication list reviewed. Denies lightheadedness but, he is lying down at the time. Denies CP, SOB, nausea, abd pain. ROS is limited due to dementia. Appears to be in no acute distress. He was fedding himself lunch while we were in the TEAM meeting. Objective Data Objective Data Vital Signs: Vital Signs Temp Pulse Resp BP Pulse Ox O2 Del Method O2 Flow Rate 97.6 F L 69 16 105/59 L 96 Room Air 2 04/23/24 05:51 04/23/24 08:30 04/23/24 05:51 04/23/24 08:30 04/23/24 05:51 04/23/24 05:51 04/21/24 19:58 Oxygen Flow Rate (L/min) 2 Oxygen Delivery Method Room Air Weight: 159 lb 6.307 oz Body Mass Index (BMI) 24.1 Intake & Output: Intake and Output for Last 24 Hours 04/21/24 04/22/24 04/23/24 23:59 23:59 23:59 Intake Total 480 / 480 1822 / 1822 800 / 800 Output Total 100 / 100 850 / 850 Balance 380 / 380 972 / 972 800 / 800 Lab / Micro Data 04/24/24 05:45 04/24/24 05:45 Micro: Microbiology 04/14/24 14:00 Stool Stool Occult Blood (ADDIS) - Final Physical Exam Const Constitutional Narrative: He is alert this morning and making eye contact with me. He is talkative and appropriate. Working with PT in bed today due to orthostatic hypotension. Resp No normal respiratory effort and clear to auscultation bilaterally Resp Narrative: He is coughing at times. Lying flat in bed with no shortness of breath. No cough with deep breathing today. Effort and Inspection: Negative for tachypneic or respiratory distress Cardio regular rate, regular rhythm and no gallops GI normal to inspection, nondistended, normoactive bowel sounds, soft to palpation and non-tender GI Narrative: No guarding. Extremity Extremity Narrative: No grimacing with squeezing his calf. General Extremity: Negative for edema Skin General Skin Exam: no breakdown Rashes: no rashes Psych Psych Narrative: He is calm currently and appropriate. Assessment & Plan Assessment/Plan (1) Debility: (2) Generalized weakness: (3) Physical deconditioning: (4) Stroke: QUALIFIERS: CVA mechanism: unspecified Qualified Code(s): I63.9 - Cerebral infarction, unspecified (5) Hx of Parkinson's disease: (6) Dementia: QUALIFIERS: Dementia type: Parkinson's disease Dementia severity: unspecified severity Dementia behavioral or psychological symptom: without behavioral, psychotic, or mood disturbance or anxiety Qualified Code(s): G20.A1 - Parkinson's disease without dyskinesia, without mention of fluctuations; F02.80 - Dementia in other diseases classified elsewhere, unspecified severity, without behavioral disturbance, psychotic disturbance, mood disturbance, and anxiety (7) Sleep apnea: QUALIFIERS: Sleep apnea type: unspecified type Qualified Code(s): G47.30 - Sleep apnea, unspecified (8) HTN (hypertension): QUALIFIERS: Hypertension type: primary hypertension Qualified Code(s): I10 - Essential (primary) hypertension (9) HLD (hyperlipidemia): QUALIFIERS: Hyperlipidemia type: unspecified Qualified Code(s): E 78.5 - Hyperlipidemia, unspecified (10) Peripheral edema: PLAN: Resolved. (11) Silent aspiration: QUALIFIERS: Encounter type: subsequent encounter Qualified Code(s): T17.900D - Unspecified foreign body in respiratory tract, part unspecified causing asphyxiation, subsequent encounter PLAN: Plan 1. Continue therapy 2. Start IV fluids with a 500 cc bolus of normal saline and then run at 100 cc/h. 3. BMP, H&H tomorrow. 4. I suspect Seroquel was causing increased agitation. Was still restless last night but, not as agitated. He did not sleep well but, he slept nearly 24 hours in a row on Saturday. Will allow the Seroquel to wash out before trying anything else at HS. Will add Seroquel to the allergy list as severe adverse reaction - severe agitation. 5. Orthostatic vital signs in the a.m. Charges/Coding Visit Charges Inpatient E&M: 78336 Subs Hosp L2
--- NOTE | 2024-04-23 12:54 | CASEMGMT ---
Social Work IDT met with patient and via conference call for Team meeting. Discussed patient's progress in PT/OT/ST/SN. Educated to Medicare approval with [facility] 05/05. [facility] updated that none of the 4 SNFs so far can accept; though, [facility] will review again next week to see if pt has improved. SW offered to send another list of [facility] SNFs to or leave printed list in pt's room when were to visit. requested email be sent with list. SW agreed. Will ReTeam weekly. SW sent list to via [employer] Guide Link. TUCKER Dorman
[2024-04-23 18:00] VITALS: BP 160/80; PULSE 63; RESP 17; TEMP 36.6; O2SAT 94
[2024-04-23] MEDS: QUEtiapine 25 MG Tablet 50 MG PO (19:48)
[2024-04-23] MEDS: Donepezil HCl 5 MG Tablet PO (20:38)
[2024-04-24] MEDS: 0.9% Normal Saline (1000mL) 1,000 ML 100 ML IV ×2 (05:20→15:08)
[2024-04-24] MEDS: Enoxaparin 40 MG/0.4 ML Syringe SC (05:21)
[2024-04-24] MEDS: Menthol/Lanolin/Calamine/Znox 113 GM Tube 1 APPLIC TOPICAL ×2 (05:22→20:25)
[2024-04-24] MEDS: Nystatin Powder 15gm Bottle 1 APPLIC TOPICAL ×2 (05:22→20:25)
[2024-04-24 05:47] VITALS: BP 144/78; PULSE 63; RESP 19; TEMP 37.1; O2SAT 94
[2024-04-24 06:09] LABS: Hemoglobin 10.7 g/dL (13.0-16.5)
[2024-04-24 06:36] LABS: Anion Gap 3 (5-15); BUN 23 mg/dL (7-18); BUN/Creat Ratio 28.1 RATIO (10-20); Calcium,Total 8.4 mg/dL (8.5-10.1); Chloride 114 mmol/L (98-107); Creatinine, Serum 0.82 mg/dL (0.70-1.30); EST Glomerular Filtration Rate 97 mL/min (>60); Est Glom Filt Rate - Afr Amer 117 mL/min (>60); Estimated Creatinine Clearance 71.83 ml/min; Glucose 89 mg/dL (74-106); Potassium 4.1 mmol/L (3.5-5.1); Sodium Level 144 mmol/L (136-145)
[2024-04-24] MEDS: Carbidopa/Levodopa 25/250 Tablet PO ×3 (07:24→15:09)
[2024-04-24] MEDS: Senna/Docusate Sodium 1 Tablet 2 TABLET PO ×2 (08:28→20:16)
[2024-04-24] MEDS: Losartan Potassium 100 MG Tablet PO (08:28)
[2024-04-24] MEDS: Pantoprazole Sodium 20 MG Tablet PO (08:28)
[2024-04-24] MEDS: Memantine Hydrochloride 10 MG Tablet PO ×2 (08:28→20:16)
[2024-04-24 09:25] VITALS: BP 145/94; BP 146/76; BP 92/55; PULSE 66; PULSE 68
[2024-04-24 09:29] VITALS: BMI 24.1
--- NOTE | 2024-04-24 12:22 | PCM.PROGNOTE ---
Subjective Subjective Afebrile VSS -he is still orthostatic. The blood pressure lying down was 146/76 and dropped to 92/55 with standing but, this is an improvement over yesterday. Maintaining appropriate oxygen saturation on RA Oral intake - FOOD good....mostly feeding himself again. FLUIDS fluid balance yesterday was +1920. He took 1620 p.o. and had another 1500 IV. Discussed with nursing - no problems that need addressed Reviewed the THERAPY notes Medication list reviewed. Was restless and did not go to sleep until 3 AM but, no aggressive behavior. He did get 50 mg of Seroquel last night....despite an order to hold 2 days ago? Will DC today and not hold. Has not needed PRN Haldol for agitation since the night the code beto was called. Has been sitting out in the nurses station and this is working well to keep in from getting out of bed. He does not appear to be in any distress. He is the most alert I have seen him in days today.......able to answer my questions. Made good eye contact with me. He was clam when I was talking with him while he was sitting in the nurses station. Objective Data Objective Data Vital Signs: Vital Signs Temp Pulse Resp BP Pulse Ox O2 Del Method O2 Flow Rate 98.8 F 66 19 H 146/76 H 94 Room Air 2 04/24/24 05:47 04/24/24 09:25 04/24/24 05:47 04/24/24 09:25 04/24/24 05:47 04/24/24 10:00 04/21/24 19:58 Oxygen Flow Rate (L/min) 2 Oxygen Delivery Method Room Air Weight: 159 lb 6.307 oz Body Mass Index (BMI) 24.1 Intake & Output: Intake and Output for Last 24 Hours 04/22/24 04/23/24 04/24/24 23:59 23:59 23:59 Intake Total 1822 / 1822 3120 / 3220 1055 / 1055 Output Total 850 / 850 1200 / 1350 350 / 350 Balance 972 / 972 1920 / 1870 705 / 705 Lab / Micro Data 04/24/24 05:45 04/24/24 05:45 Labs: Laboratory Results - last 24 hr 04/24/24 05:45: Hgb 10.7 L, Hct 33.0 L, Sodium 144, Potassium 4.1, Chloride 114 H, Carbon Dioxide 27.0, Anion Gap 3 L, BUN 23 H, Creatinine 0.82, Estim Creat Clear Calc 71.83, Est GFR (MDRD) Af Amer 117, Est GFR (MDRD) Non-Af 97, BUN/Creatinine Ratio 28.1 H, Glucose 89, Calcium 8.4 L Micro: Microbiology 04/14/24 14:00 Stool Stool Occult Blood (ADDIS) - Final Physical Exam Const alert and no apparent distress General Appearance: cooperative HEENT Mouth: dry mucous membranes Eyes PERRL and EOMs intact bilaterally Neck supple Resp normal respiratory effort and clear to auscultation bilaterally Resp Narrative: No cough with deep breathing Effort and Inspection: Negative for tachypneic GI normal to inspection, nondistended, normoactive bowel sounds, soft to palpation and non-tender GI Narrative: No guarding with palpation. Extremity no calf tenderness General Extremity: Negative for edema Skin General Skin Exam: no breakdown Rashes: no rashes Assessment & Plan Assessment/Plan (1) Debility: (2) Generalized weakness: (3) Physical deconditioning: (4) Stroke: QUALIFIERS: CVA mechanism: unspecified Qualified Code(s): I63.9 - Cerebral infarction, unspecified (5) Hx of Parkinson's disease: (6) Dementia: QUALIFIERS: Dementia type: Parkinson's disease Dementia severity: unspecified severity Dementia behavioral or psychological symptom: without behavioral, psychotic, or mood disturbance or anxiety Qualified Code(s): G20.A1 - Parkinson's disease without dyskinesia, without mention of fluctuations; F02.80 - Dementia in other diseases classified elsewhere, unspecified severity, without behavioral disturbance, psychotic disturbance, mood disturbance, and anxiety (7) Sleep apnea: QUALIFIERS: Sleep apnea type: unspecified type Qualified Code(s): G47.30 - Sleep apnea, unspecified (8) HTN (hypertension): QUALIFIERS: Hypertension type: primary hypertension Qualified Code(s): I10 - Essential (primary) hypertension (9) HLD (hyperlipidemia): QUALIFIERS: Hyperlipidemia type: unspecified Qualified Code(s): E78.5 - Hyperlipidemia, unspecified (10) Peripheral edema: PLAN: Resolved. (11) Silent aspiration: QUALIFIERS: Encounter type: subsequent encounter Qualified Code(s): T17.900D - Unspecified foreign body in respiratory tract, part unspecified causing asphyxiation, subsequent encounter (12) Orthostatic hypotension: PLAN: Likely due to dehydration and PD and Cozaar. Will continue the IV fluids for a total of 4 liters. PLAN: Plan 1. Continue therapy 2. DC Seroquel. 3. Start Trazodone at HS for insomnia. Will need to check PVR's after this is initiated. 4. Recheck orthostatics in the AM 5. Will be placed at [facility]..... is no longer able to manage his care at home. SW and his are working on this. Has been turned down by 4 facilities already. Behavior is improving so hopefully we will be able to find a facility to take him. I think decreasing the Sinemet to TID has helped with agitation. Charges/Coding Visit Charges Inpatient E&M: 35111 Subs Hosp L1
--- NOTE | 2024-04-24 12:39 | CASEMGMT ---
Social Work SW phoned to verify if she received the email with list of SNFs. was at lunch and unsure if she received the email or not. to contact this worker after she gets home. FEDERICO also spoke with [facility] and they are completing an onsite with pt today. Nursing and updated. Will continue to follow. TUCKER DormanW
[2024-04-24 17:33] VITALS: BP 165/85; PULSE 61; RESP 17; TEMP 35.8; O2SAT 96
[2024-04-24] MEDS: traZODone 50 MG Tablet 150 MG PO (20:16)
[2024-04-24] MEDS: Donepezil HCl 5 MG Tablet PO (20:16)
[2024-04-24 23:57] VITALS: BMI 24.1
[2024-04-25] MEDS: 0.9% Saline Lock 10 ML Syringe IV (00:59)
[2024-04-25 06:00] VITALS: BP 179/95; PULSE 64; RESP 18; TEMP 36.3; O2SAT 98
[2024-04-25] MEDS: Enoxaparin 40 MG/0.4 ML Syringe SC (06:57)
[2024-04-25] MEDS: Carbidopa/Levodopa 25/250 Tablet PO ×3 (06:57→17:04)
[2024-04-25] MEDS: Menthol/Lanolin/Calamine/Znox 113 GM Tube 1 APPLIC TOPICAL ×2 (06:58→20:37)
[2024-04-25 07:33] VITALS: BP 121/98; BP 171/93; BP 189/104; PULSE 65; PULSE 66; PULSE 67
[2024-04-25] MEDS: Nystatin Powder 15gm Bottle 1 APPLIC TOPICAL ×2 (08:00→20:37)
[2024-04-25] MEDS: Pantoprazole Sodium 20 MG Tablet PO (08:02)
[2024-04-25] MEDS: Senna/Docusate Sodium 1 Tablet 2 TABLET PO ×2 (08:02→20:36)
[2024-04-25] MEDS: Memantine Hydrochloride 10 MG Tablet PO ×2 (08:02→20:36)
[2024-04-25] MEDS: Losartan Potassium 100 MG Tablet PO (08:02)
[2024-04-25 17:00] VITALS: BMI 24.1
[2024-04-25 17:55] VITALS: BP 175/91; PULSE 60; RESP 18; TEMP 36.1; O2SAT 98
[2024-04-25] MEDS: traZODone 50 MG Tablet 150 MG PO (20:35)
[2024-04-25] MEDS: Donepezil HCl 5 MG Tablet PO (20:35)
[2024-04-25 22:03] VITALS: BMI 24.1
[2024-04-26] VITALS (7 sets, daily range): BP systolic 123–189; BP diastolic 83–102; PULSE 53–57; RESP 16–18; TEMP 36.3–36.7; O2SAT 93–97; BMI 24.1
[2024-04-26] MEDS: 0.9% Saline Lock 10 ML Syringe IV ×2 (03:31→18:16)
[2024-04-26] MEDS: Menthol/Lanolin/Calamine/Znox 113 GM Tube 1 APPLIC TOPICAL ×2 (05:09→20:24)
[2024-04-26] MEDS: Enoxaparin 40 MG/0.4 ML Syringe SC (05:10)
[2024-04-26] MEDS: Nystatin Powder 15gm Bottle 1 APPLIC TOPICAL ×2 (05:10→20:24)
[2024-04-26] MEDS: Losartan Potassium 100 MG Tablet PO (05:11)
[2024-04-26] MEDS: Carbidopa/Levodopa 25/250 Tablet PO ×3 (06:37→18:11)
[2024-04-26] MEDS: Memantine Hydrochloride 10 MG Tablet PO ×2 (09:26→20:21)
[2024-04-26] MEDS: Senna/Docusate Sodium 1 Tablet 2 TABLET PO ×2 (09:26→20:21)
[2024-04-26] MEDS: Pantoprazole Sodium 20 MG Tablet PO (09:26)
[2024-04-26] MEDS: traZODone 50 MG Tablet 150 MG PO (20:20)
[2024-04-26] MEDS: Donepezil HCl 5 MG Tablet PO (20:21)
[2024-04-27] MEDS: Enoxaparin 40 MG/0.4 ML Syringe SC (04:38)
[2024-04-27] MEDS: Menthol/Lanolin/Calamine/Znox 113 GM Tube 1 APPLIC TOPICAL ×2 (04:40→20:13)
[2024-04-27] MEDS: Nystatin Powder 15gm Bottle 1 APPLIC TOPICAL ×2 (04:40→20:15)
[2024-04-27 04:41] VITALS: BP 106/62; PULSE 59; RESP 17; TEMP 36.2; O2SAT 95
[2024-04-27] MEDS: 0.9% Saline Lock 10 ML Syringe IV (04:41)
[2024-04-27 10:00] VITALS: BP 179/87; PULSE 54
--- NOTE | 2024-04-27 10:14 | NURSING ---
pt was unable to participate in OT this am.
--- NOTE | 2024-04-27 11:31 | PN_ITS ---
Subjective Subjective Afebrile VSS - BP is erratic and it ranged from 106/62 (this AM) to 189/102 over the weekend. Orthostatic blood pressures were positive on Saturday. The blood pressure lying down was 189/104 and standing was 121/98. The pulse does not change. Maintaining appropriate oxygen saturation on RA Oral intake - FOOD 75 to 100% of almost all meals. FLUIDS highly variable. Intake yesterday was 1490 cc. IV fluids have been stopped over the weekend. Did not require any IV Haldol since the single dose he was given by the night hospitalist last week. Discussed with nursing - no problems that need addressed. He is sleeping better with the Trazodone. No aggressive behavior. Reviewed the THERAPY notes Medication list reviewed. He is on losartan 100 mg p.o. daily. Will need to add a PRN medication for BP > 180/90 Level of awareness varies throughout the day. IT is better after Sinemet for a while. He does not look to be in any pain and he is lying flat in bed with no SOB. Not restless at present. He has no complaints but, ROS is limited by his drowsiness at the present time and his dementia. Objective Data Objective Data Vital Signs: Vital Signs Temp Pulse Resp BP Pulse Ox O2 Del Method O2 Flow Rate 97.2 F L 59 L 17 106/62 95 Room Air 2 04/27/24 04:41 04/27/24 04:41 04/27/24 04:41 04/27/24 04:41 04/27/24 04:41 04/27/24 04:41 04/21/24 19:58 Oxygen Flow Rate (L/min) 2 Oxygen Delivery Method Room Air Weight: 159 lb 6.307 oz Body Mass Index (BMI) 24.1 Intake & Output: Intake and Output for Last 24 Hours 04/25/24 04/26/24 04/27/24 23:59 23:59 23:59 Intake Total 2128.33 / 2128.33 1490 / 1490 200 / 200 Output Total 700 / 700 1050 / 1050 300 / 300 Balance 1428.33 / 1428.33 440 / 440 -100 / -100 Lab / Micro Data 04/24/24 05:45 04/24/24 05:45 Micro: Microbiology 04/14/24 14:00 Stool Stool Occult Blood (ADDIS) - Final Physical Exam Const Constitutional Narrative: Drowsy. Not restless. Cooperative with me Resp clear to auscultation bilaterally Resp Narrative: I have no heard him coughing today Effort and Inspection: Negative for tachypneic or labored Cardio regular rate, regular rhythm and no gallops GI normal to inspection, nondistended, normoactive bowel sounds, soft to palpation and non-tender Extremity General Extremity: Negative for edema Assessment & Plan Assessment/Plan (1) Debility: (2) Generalized weakness: (3) Physical deconditioning: (4) Stroke: QUALIFIERS: CVA mechanism: unspecified Qualified Code(s): I63.9 - Cerebral infarction, unspecified (5) Hx of Parkinson's disease: (6) Dementia: QUALIFIERS: Dementia type: Parkinson's disease Dementia severity: unspecified severity Dementia behavioral or psychological symptom: without behavioral, psychotic, or mood disturbance or anxiety Qualified Code(s): G20.A1 - Parkinson's disease without dyskinesia, without mention of fluctuations; F02.80 - Dementia in other diseases classified elsewhere, unspecified severity, without behavioral disturbance, psychotic disturbance, mood disturbance, and anxiety (7) Sleep apnea: QUALIFIERS: Sleep apnea type: unspecified type Qualified Code(s): G47.30 - Sleep apnea, unspecified (8) HTN (hypertension): QUALIFIERS: Hypertension type: primary hypertension Qualified Code(s): I10 - Essential (primary) hypertension (9) HLD (hyperlipidemia): QUALIFIERS: Hyperlipidemia type: unspecified Qualified Code(s): E 78.5 - Hyperlipidemia, unspecified (10) Peripheral edema: (11) Silent aspiration: QUALIFIERS: Encounter type: subsequent encounter Qualified Code(s): T17.900D - Unspecified foreign body in respiratory tract, part unspecified causing asphyxiation, subsequent encounter (12) Orthostatic hypotension: PLAN: Plan 1. Continue therapy 2. Add hydralazine 10 mg p.o. every 4 hours as needed systolic greater than 180 or diastolic greater than 90. He is significantly orthostatic so will not treat the BP aggressively. Will continue Cozaar for now. 3. Plan DC to [facility] at [place]. DC 05/05/24 4. Continue Trazodone at 8 PM nightly. Charges/Coding Visit Charges Inpatient E&M: 00024 Subs Hosp L1
[2024-04-27] MEDS: Senna/Docusate Sodium 1 Tablet 2 TABLET PO ×2 (11:46→20:15)
[2024-04-27] MEDS: Memantine Hydrochloride 10 MG Tablet PO ×2 (11:46→20:14)
[2024-04-27] MEDS: Pantoprazole Sodium 20 MG Tablet PO (11:46)
[2024-04-27] MEDS: Losartan Potassium 100 MG Tablet PO (11:46)
[2024-04-27] MEDS: Carbidopa/Levodopa 25/250 Tablet PO ×2 (11:46→16:48)
[2024-04-27 14:00] VITALS: BP 117/85; PULSE 60
[2024-04-27 15:38] VITALS: BMI 24.1
[2024-04-27 17:35] VITALS: BP 163/87; PULSE 61; RESP 16; TEMP 36.5; O2SAT 97
[2024-04-27] MEDS: traZODone 50 MG Tablet 150 MG PO (20:05)
[2024-04-27 20:12] VITALS: BMI 24.1
[2024-04-27] MEDS: Donepezil HCl 5 MG Tablet PO (20:13)
[2024-04-27 20:15] VITALS: PULSE 60; RESP 15
[2024-04-27 22:00] VITALS: BP 162/64; PULSE 60; RESP 15; TEMP 36.4; O2SAT 95
[2024-04-28 05:45] VITALS: BP 173/82; PULSE 64; RESP 16; TEMP 36.6; O2SAT 95
[2024-04-28] MEDS: Menthol/Lanolin/Calamine/Znox 113 GM Tube 1 APPLIC TOPICAL ×2 (05:47→20:06)
[2024-04-28] MEDS: Nystatin Powder 15gm Bottle 1 APPLIC TOPICAL ×2 (05:48→20:10)
[2024-04-28] MEDS: Enoxaparin 40 MG/0.4 ML Syringe SC (05:48)
[2024-04-28] MEDS: Carbidopa/Levodopa 25/250 Tablet PO ×3 (06:00→16:33)
--- NOTE | 2024-04-28 08:36 | PN.REHAB_ITS ---
Subjective Subjective Patient seen and examined. He is sleepy this morning, but wakes with verbal cues. He has no new problems, concerns, issues, complaints, but he is mumbling a lot. Objective Data Objective Data Vital Signs: Vital Signs Temp Pulse Resp BP Pulse Ox O2 Del Method O2 Flow Rate 97.8 F 64 16 173/82 H 95 Room Air 2 04/28/24 05:45 04/28/24 05:45 04/28/24 05:45 04/28/24 05:45 04/28/24 05:45 04/28/24 05:45 04/21/24 19:58 Oxygen Flow Rate (L/min) 2 Oxygen Delivery Method Room Air Weight: 72.3 kg Body Mass Index (BMI) 24.1 Intake & Output: Intake and Output for Last 24 Hours 04/26/24 04/27/24 04/28/24 23:59 23:59 23:59 Intake Total 1490 / 1490 920 / 920 60 / 60 Output Total 1050 / 1050 400 / 400 Balance 440 / 440 520 / 520 60 / 60 Lab / Micro Data 04/24/24 05:45 04/24/24 05:45 Micro: Microbiology 04/14/24 14:00 Stool Stool Occult Blood (ADDIS) - Final Indicators for Scoring Admitted with or Primary Diagnosis of CVA/Stroke: Yes Hx of CVA/Stroke: Yes Modified Tanner Score MRS Score at time of Evaluation: 4-Moderate/severe disability Physical Exam Const alert Constitutional Narrative: Drowsy. General Appearance: cooperative HEENT normocephalic Eyes PERRL and EOMs intact bilaterally Neck supple, no JVD and no carotid bruits Resp normal respiratory effort, normal air movement and clear to auscultation bilaterally Cardio regular rate and regular rhythm GI normal to inspection, nondistended, normoactive bowel sounds, non-tender and non-distended Extremity normal capillary refill General Extremity: Negative for edema Skin no rashes or lesions noted General Skin Exam: no breakdown Psych affect normal Appearance: appropriate Assessment & Plan Assessment/Plan (1) Debility: (2) Encephalopathy: (3) Parkinson's disease dementia: (4) Dementia with agitation: (5) HTN (hypertension): QUALIFIERS: Hypertension type: primary hypertension Qualified Code(s): I10 - Essential (primary) hypertension (6) Orthostatic hypotension: (7) GERD (gastroesophageal reflux disease): (8) Insomnia: PLAN: Plan 78 year old male with below past medical history hospitalized for encephalopathy, stroke ruled out, admitted to with debility, here for 3 hours daily rehabilitation, strengthening, prior to discharge. * Debility - PT/OT/ST. * Pain - Tylenol 650mg q6 prn. * Bowel - senna/colace tablets bid, Dulcolax 10mg pr x 1 prn, MOM 30ml daily prn. * DVT prophylaxis - Lovenox 40mg sc daily. * Parkinson Disease - Sinemet 25/250mg 1 tablet tidac, Comtan 200mg tid. * Parkinson Disease Dementia - Donepezil 5mg qhs, Memantine 10mg bid. * Dementia with agitation - Haldol 1mg im q6h prn. * Hypertension - Losartan 100mg daily, Hydralazine 10mg q4h prn elevated blood pressure. * Skin irritation - Calmoseptine topical bid. * Tinea Corporis - Nystatin powder topical bid. * GERD - Pantoprazole 20mg daily. * Insomnia - Trazodone 150mg qhs.
[2024-04-28] MEDS: Losartan Potassium 100 MG Tablet PO (08:37)
[2024-04-28] MEDS: Pantoprazole Sodium 20 MG Tablet PO (08:38)
[2024-04-28] MEDS: Memantine Hydrochloride 10 MG Tablet PO ×2 (08:38→20:10)
[2024-04-28] MEDS: Senna/Docusate Sodium 1 Tablet 2 TABLET PO ×2 (08:38→20:10)
--- NOTE | 2024-04-28 10:09 | CASEMGMT ---
Addendum entered by Danielle Ruiz 04/29/24 15:25: [facility] denied. No response from [facility]. However, [facility] completed another onsite today and spoke with this worker - they can accept pt, but need to visit the facility to sign paperwork first. SW phoned to update and she plans to visit [facility] after Team tomorrow. SW to coordinate transport and complete 7000. Plan: DC 05/05 to [facility] [place], [facility] Original Note: Social Work left this worker a VM with new SNF choices for referrals: [facility] and [facility]. SW sent referrals via [employer]. Danielle Ruiz, TUCKER DELGADILLOW
[2024-04-28 14:00] VITALS: BP 89/46; PULSE 65
[2024-04-28 17:40] VITALS: BP 94/56; PULSE 65; RESP 18; TEMP 36.7; O2SAT 97
[2024-04-28 19:54] VITALS: RESP 16; O2SAT 94; BMI 24.1
[2024-04-28] MEDS: traZODone 50 MG Tablet 150 MG PO (20:05)
[2024-04-28] MEDS: Donepezil HCl 5 MG Tablet PO (20:10)
[2024-04-28 21:45] VITALS: BP 142/66; PULSE 66
--- NOTE | 2024-04-29 02:04 | NURSING ---
Pt snoring loudly and appears to be resting comfortably.
[2024-04-29 06:00] VITALS: BP 164/100; PULSE 68; RESP 16; TEMP 36.2; O2SAT 97; BMI 25.2
[2024-04-29] MEDS: Enoxaparin 40 MG/0.4 ML Syringe SC (06:18)
[2024-04-29] MEDS: Nystatin Powder 15gm Bottle 1 APPLIC TOPICAL ×2 (06:18→20:59)
[2024-04-29] MEDS: Menthol/Lanolin/Calamine/Znox 113 GM Tube 1 APPLIC TOPICAL ×2 (06:19→20:59)
[2024-04-29 06:23] VITALS: BP 164/100; PULSE 65
[2024-04-29] MEDS: hydrALAZINE 10 MG Tablet PO (06:23)
[2024-04-29] MEDS: Carbidopa/Levodopa 25/250 Tablet PO ×3 (06:25→16:00)
--- NOTE | 2024-04-29 08:12 | PN.REHAB_ITS ---
Subjective Subjective Patient seen, examined this morning. He is more awake, alert today. He has no new complaints. Blood pressure 164/100, but avoid aggressive treatment due to orthostatic hypotension related to Parkinson Disease. Objective Data Objective Data Vital Signs: Vital Signs Temp Pulse Resp BP Pulse Ox O2 Del Method O2 Flow Rate 97.1 F L 65 16 164/100 H 97 Room Air 2 04/29/24 06:00 04/29/24 06:23 04/29/24 06:00 04/29/24 06:23 04/29/24 06:00 04/29/24 06:00 04/21/24 19:58 Oxygen Flow Rate (L/min) 2 Oxygen Delivery Method Room Air Weight: 75.2 kg Body Mass Index (BMI) 25.2 Intake & Output: Intake and Output for Last 24 Hours 04/27/24 04/28/24 04/29/24 23:59 23:59 23:59 Intake Total 920 / 920 690 / 690 Output Total 400 / 400 Balance 520 / 520 690 / 690 Lab / Micro Data 04/24/24 05:45 04/24/24 05:45 Micro: Microbiology 04/14/24 14:00 Stool Stool Occult Blood (ADDIS) - Final Indicators for Scoring Admitted with or Primary Diagnosis of CVA/Stroke: Yes Hx of CVA/Stroke: Yes Modified Charlie Score MRS Score at time of Evaluation: 4-Moderate/severe disability Physical Exam Const alert Constitutional Narrative: Drowsy. General Appearance: cooperative HEENT normocephalic Eyes PERRL and EOMs intact bilaterally Neck supple, no JVD and no carotid bruits Resp normal respiratory effort, normal air movement and clear to auscultation bilaterally Cardio regular rate and regular rhythm GI normal to inspection, nondistended, normoactive bowel sounds, non-tender and non-distended Extremity normal capillary refill General Extremity: Negative for edema Skin no rashes or lesions noted General Skin Exam: no breakdown Psych affect normal Appearance: appropriate Assessment & Plan Assessment/Plan (1) Debility: (2) Encephalopathy: (3) Parkinson's disease dementia: (4) Dementia with agitation: (5) HTN (hypertension): QUALIFIERS: Hypertension type: primary hypertension Qualified Code(s): I10 - Essential (primary) hypertension (6) Orthostatic hypotension: (7) GERD (gastroesophageal reflux disease): (8) Insomnia: PLAN: Plan 78 year old male with below past medical history hospitalized for encephalopathy, stroke ruled out, admitted to with debility, here for 3 hours daily rehabilitation, strengthening, prior to discharge. * Debility - PT/OT/ST. * Pain - Tylenol 650mg q6 prn. * Bowel - senna/colace tablets bid, Dulcolax 10mg pr x 1 prn, MOM 30ml daily prn. * DVT prophylaxis - Lovenox 40mg sc daily. * Parkinson Disease - Sinemet 25/250mg 1 tablet tidac, Comtan 200mg tid. * Parkinson Disease Dementia - Donepezil 5mg qhs, Memantine 10mg bid. * Dementia with agitation - Haldol 1mg im q6h prn. * Hypertension - Losartan 100mg daily, Hydralazine 10mg q4h prn elevated blood pressure. * Skin irritation - Calmoseptine topical bid. * Tinea Corporis - Nystatin powder topical bid. * GERD - Pantoprazole 20mg daily. * Insomnia - Trazodone 150mg qhs.
[2024-04-29 08:19] VITALS: BP 123/80
[2024-04-29] MEDS: Memantine Hydrochloride 10 MG Tablet PO ×2 (08:42→20:59)
[2024-04-29] MEDS: Losartan Potassium 100 MG Tablet PO (08:42)
[2024-04-29] MEDS: Senna/Docusate Sodium 1 Tablet 2 TABLET PO ×2 (08:42→20:59)
[2024-04-29] MEDS: Pantoprazole Sodium 20 MG Tablet PO (08:42)
[2024-04-29 16:02] VITALS: BMI 25.2
[2024-04-29 17:20] VITALS: BP 137/86; PULSE 62; RESP 16; TEMP 36.6; O2SAT 95
[2024-04-29] MEDS: traZODone 50 MG Tablet 150 MG PO (20:58)
[2024-04-29] MEDS: Donepezil HCl 5 MG Tablet PO (20:59)
[2024-04-29 21:20] VITALS: BP 122/68; PULSE 63; RESP 18; O2SAT 93
[2024-04-30 06:03] VITALS: BP 160/84; PULSE 63; RESP 16; TEMP 36.1; O2SAT 97
[2024-04-30] MEDS: Menthol/Lanolin/Calamine/Znox 113 GM Tube 1 APPLIC TOPICAL (06:10)
[2024-04-30] MEDS: Nystatin Powder 15gm Bottle 1 APPLIC TOPICAL (06:10)
[2024-04-30] MEDS: Enoxaparin 40 MG/0.4 ML Syringe SC (06:11)
[2024-04-30] MEDS: Carbidopa/Levodopa 25/250 Tablet PO ×2 (06:12→10:50)
[2024-04-30] MEDS: Pantoprazole Sodium 20 MG Tablet PO (08:21)
[2024-04-30] MEDS: Losartan Potassium 100 MG Tablet PO (08:22)
[2024-04-30] MEDS: Memantine Hydrochloride 10 MG Tablet PO (08:22)
[2024-04-30] MEDS: Senna/Docusate Sodium 1 Tablet 2 TABLET PO (08:22)
--- NOTE | 2024-04-30 08:29 | CASEMGMT ---
Addendum entered by Danielle Ruiz 04/30/24 12:16: PAS[facility] completed in [facility]. [facility] requested COVID test. Results pending and will be sent to [facility] at [place]. Addendum entered by Danielle Ruiz 04/30/24 12:15: SW spoke with Michi and - both agreeable for pt to DC today, 04/30. [facility] requesting PASRR as pt will be remain LTP. SW scheduled cot transport through [facility] for [facility]. Updated IDT. DC paperwork sent to [facility] via [employer]. Plan: DC 04/30, [facility] skilled TUCK[facility] Dorman Original Note: Social Work IDT met with patient and conference call with for Team meeting. Discussed patient's progress in PT/OT/ST/SN. Per Medicare, [place] 05/05. However, [facility] has accepted pt at [place]. Team discussed pt has not been able to participate in full therapy for several days, which indicates an earlier DC needs to be set. [employer] sent message to [facility] to inquire about earlier DC date - will await outcome. SW educated and is agreeable. SW to complete 7000 and coordinate cot transport at time of DC. Will continue to follow. TUCKER Dorman
[2024-04-30 10:00] VITALS: BP 103/59; PULSE 59
--- NOTE | 2024-04-30 11:05 | PN.REHAB_ITS ---
Subjective Subjective Patient seen, examined on team rounds. is wondering why patient so sleepy. Patient has had Code Geri during his stay. He is on Trazodone 150mg at bedtime, will lower Trazodone to 75mg at bedtime to see if he will wake up more. He has not participated with therapy since 04/25/2024, He sometimes will sleep right through therapy, or cover his face with the blanket, understands if he continues to not participate with therapy, he will need to discharge to lower level of care. Objective Data Objective Data Vital Signs: Vital Signs Temp Pulse Resp BP Pulse Ox O2 Del Method O2 Flow Rate 96.9 F L 63 16 160/84 H 97 Room Air 2 04/30/24 06:03 04/30/24 06:03 04/30/24 06:03 04/30/24 06:03 04/30/24 06:03 04/30/24 06:03 04/21/24 19:58 Oxygen Flow Rate (L/min) 2 Oxygen Delivery Method Room Air Weight: 75.2 kg Body Mass Index (BMI) 25.2 Intake & Output: Intake and Output for Last 24 Hours 04/28/24 04/29/24 04/30/24 23:59 23:59 23:59 Intake Total 690 / 690 450 / 450 120 / 120 Balance 690 / 690 450 / 450 120 / 120 Lab / Micro Data 04/24/24 05:45 04/24/24 05:45 Micro: Microbiology 04/14/24 14:00 Stool Stool Occult Blood (ADDIS) - Final Indicators for Scoring Admitted with or Primary Diagnosis of CVA/Stroke: Yes Hx of CVA/Stroke: Yes Modified Follett Score MRS Score at time of Evaluation: 4-Moderate/severe disability Physical Exam Const alert Constitutional Narrative: Sleeping, snoring, but responds when I talk to him. General Appearance: cooperative HEENT normocephalic Eyes PERRL and EOMs intact bilaterally Neck supple, no JVD and no carotid bruits Resp normal respiratory effort, normal air movement and clear to auscultation bilaterally Cardio regular rate and regular rhythm GI normal to inspection, nondistended, normoactive bowel sounds, non-tender and non-distended Extremity normal capillary refill General Extremity: Negative for edema Skin no rashes or lesions noted General Skin Exam: no breakdown Psych affect normal Appearance: appropriate Assessment & Plan Assessment/Plan (1) Debility: (2) Encephalopathy: (3) Parkinson's disease dementia: (4) Dementia with agitation: (5) HTN (hypertension): QUALIFIERS: Hypertension type: primary hypertension Qualified Code(s): I10 - Essential (primary) hypertension (6) Orthostatic hypotension: (7) GERD (gastroesophageal reflux disease): (8) Insomnia: PLAN: Plan 78 year old male with below past medical history hospitalized for encephalopathy, stroke ruled out, admitted to with debility, here for 3 hours daily rehabilitation, strengthening, prior to discharge. * Debility - PT/OT/ST. * Pain - Tylenol 650mg q6 prn. * Bowel - senna/colace tablets bid, Dulcolax 10mg pr x 1 prn, MOM 30ml daily prn. * DVT prophylaxis - Lovenox 40mg sc daily. * Parkinson Disease - Sinemet 25/250mg 1 tablet tidac, Comtan 200mg tid. * Parkinson Disease Dementia - Donepezil 5mg qhs, Memantine 10mg bid. * Dementia with agitation - Haldol 1mg im q6h prn. * Hypertension - Losartan 100mg daily, Hydralazine 10mg q4h prn elevated blood pressure. * Skin irritation - Calmoseptine topical bid. * Tinea Corporis - Nystatin powder topical bid. * GERD - Pantoprazole 20mg daily. * Insomnia - Trazodone 150mg qhs, lower Trazodone to 75mg qhs to see if he is more awake.
--- NOTE | 2024-04-30 11:16 | EX.DISCHREH ---
Providers Date of Admission: 04/13/24 Primary Care Physician: SILVIANO AlmanzaC Reason For Visit: STROKE Diagnosis Discharge Diagnosis (1) Debility: Status: Acute Code(s): R53.81 - Other malaise (2) Encephalopathy: Status: Acute Code(s): G93.40 - Encephalopathy, unspecified (3) Parkinson's disease dementia: Status: Acute Code(s): G20.A1 - Parkinson's disease without dyskinesia, without mention of fluctuations; F02.80 - Dementia in other diseases classified elsewhere, unspecified severity, without behavioral disturbance, psychotic disturbance, mood disturbance, and anxiety (4) Dementia with agitation: Status: Acute Code(s): F03.911 - Unspecified dementia, unspecified severity, with agitation (5) HTN (hypertension): Status: Chronic Code(s): I10 - Essential (primary) hypertension Qualifiers: Hypertension type: primary hypertension Qualified Code(s): I10 - Essential (primary) hypertension (6) Orthostatic hypotension: Status: Acute Code(s): I95.1 - Orthostatic hypotension (7) GERD (gastroesophageal reflux disease): Status: Acute Code(s): K21.9 - Gastro-esophageal reflux disease without esophagitis (8) Insomnia: Status: Acute Code(s): G47.00 - Insomnia, unspecified Plan 78 year old male with below past medical history hospitalized for encephalopathy, stroke ruled out, admitted to with debility, here for 3 hours daily rehabilitation, strengthening, prior to discharge. Debility - PT/OT/ST. Pain - Tylenol 650mg q6 prn. Bowel - senna/colace tablets bid, Dulcolax 10mg pr x 1 prn, MOM 30ml daily prn. DVT prophylaxis - Lovenox 40mg sc daily. Parkinson Disease - Sinemet 25/250mg 1 tablet tidac, Comtan 200mg tid. Parkinson Disease Dementia - Donepezil 5mg qhs, Memantine 10mg bid. Dementia with agitation - Haldol 1mg im q6h prn. Hypertension - Losartan 100mg daily, Hydralazine 10mg q4h prn elevated blood pressure. Skin irritation - Calmoseptine topical bid. Tinea Corporis - Nystatin powder topical bid. GERD - Pantoprazole 20mg daily. Insomnia - Trazodone 150mg qhs, lower Trazodone to 75mg qhs to see if he is more awake. Medications at Discharge Home Medications carbidopa 25 mg-levodopa 250 mg tablet 1 tab PO TID parkinson's 08/09/22 memantine 10 mg tablet 10 mg PO BID memory 08/09/22 donepezil 5 mg tablet 5 mg PO QHS memory 04/09/24 entacapone 200 mg tablet 200 mg PO TID parkinson's 04/09/24 acetaminophen 325 mg tablet 650 mg (2 x 325 mg) PO Q6H PRN PRN Pain Score 1-10 #0 tabs 04/30/24 enoxaparin 40 mg/0.4 mL subcutaneous syringe 40 mg (0.4 mL) subcut DAILY@0600 #0 mL 04/30/24 hydralazine 10 mg tablet 10 mg PO Q4H PRN SYS>180 DIAST>90 #0 tabs 04/30/24 losartan 100 mg tablet 100 mg PO DAILY #0 tabs 04/30/24 menthol 0.44 %-zinc oxide 20.6 % topical ointment (Calmoseptine) 1 applic topical 0600,2200 #0 grams 04/30/24 nystatin 100,000 unit/gram topical powder (Nyamyc) 1 applic topical 0600,2200 #0 grams 04/30/24 pantoprazole 20 mg tablet,delayed release 20 mg PO DAILY #0 tabs 04/30/24 sennosides 8.6 mg-docusate sodium 50 mg tablet (Stimulant Laxative Plus) 2 tab PO BID #0 tabs 04/30/24 trazodone 50 mg tablet 75 mg (1.5 x 50 mg) PO 2000 #0 tabs 04/30/24 Hospital Course Operations None Procedures None Summary of Care Provided Minutes Spent on Discharge: 35 Hospital Course: 78 year old male with below past medical history hospitalized for encephalopathy, stroke ruled out, admitted to with debility, here for 3 hours daily rehabilitation, strengthening, prior to discharge. Discharge to [facility], skilled, PT/OT/ST. Physical Exam Const alert Constitutional Narrative: Sleeping, snoring, but responds when I talk to him. General Appearance: cooperative HEENT normocephalic Eyes PERRL and EOMs intact bilaterally Neck supple, no JVD and no carotid bruits Resp normal respiratory effort, normal air movement and clear to auscultation bilaterally Cardio regular rate and regular rhythm GI normal to inspection, nondistended, normoactive bowel sounds, non-tender and non-distended Extremity normal capillary refill General Extremity: Negative for edema Skin no rashes or lesions noted General Skin Exam: no breakdown Psych affect normal Appearance: appropriate Weight / BMI Weight Weight: 75.2 kg Body Mass Index (BMI) 25.2 ABG / Lab / Microbiology Data 04/24/24 05:45 04/24/24 05:45 Microbiology: Microbiology 04/14/24 14:00 Stool Stool Occult Blood (ADDIS) - Final Indicators for Scoring Admitted with or Primary Diagnosis of CVA/Stroke: Yes Hx of CVA/Stroke: Yes Modified Charlie Score MRS Score at time of Evaluation: 4-Moderate/severe disability D/C Instructions Discharge Diet: No restrictions Discharge Activity: Return to Normal Activity, May Shower and Use Walker Weight Bearing Status: Weight bearing as tolerated Call your doctor if you observe: Fever of 101 or Higher, Inability to urinate, Inability to have a bowel movement, Shortness of breath, Dizziness, Fainting spells, Swelling in the ankles, Chest pain and Uncontrolled pain Additional Instructions: Discharge to [facility], skilled, PT/OT/ST. Meaningful Use Info Meaningful Use Meaningful Use Diagnoses (Choose all that apply): None applicable Ischemic Stroke Statin Dosing Therapy Reference: STATIN DOSE THERAPY REFERENCE: * Patients > 75 years receive moderate or high dose statin therapy. * Patients 75 years or YOUNGER should receive HIGH intensity statin dose unless contraindicated. You will be required to document reason for non-treatment if statin daily dose does not meet guidelines. HIGH DOSE STATIN THERAPY DAILY Atorvastatin > than or = to 40 mg Rosuvastatin > than or = to 20 mg Amlodipine + Atorvastatin > than or = to 2.5/40 mg Ezetimibe + Simvastatin 10/80 mg Simvastatin 80mg Discharge Plan Admission Admit Date/Time: 04/13/24 16:26 Primary Reason for Your Visit: Debility. Attending Provider: Jessica Allen Primary Care Provider: Lydia Gibbons Instructions Additional Instructions / Restrictions: Discharge to [facility], skilled, PT/OT/ST. Discharge Orders/Prescriptions Prescriptions: New hydralazine 10 mg Tablet 10 mg PO Q4H PRN (Reason: SYS>180 DIAST>90) Qty: 0 0RF acetaminophen 325 mg Tablet 650 mg PO Q6H PRN PRN (Reason: Pain Score 1-10) Qty: 0 0RF trazodone 50 mg Tablet 75 mg PO 1999 Qty: 0 0RF sennosides-docusate sodium [Stimulant Laxative Plus] 8.6-50 mg Tablet 2 tab PO BID Qty: 0 0RF pantoprazole 20 mg Tablet,Delayed Release (Dr/Ec) 20 mg PO DAILY Qty: 0 0RF nystatin [Nyamyc] 100,000 unit/gram Powder 1 applic topical 0600,2200 Qty: 0 0RF Protocol: *Topical Application Instructions APPLICATION INSTRUCTIONS: groin losartan 100 mg Tablet 100 mg PO DAILY Qty: 0 0RF enoxaparin 40 mg/0.4 mL Syringe 40 mg subcut DAILY@0600 Qty: 0 0RF menthol-zinc oxide [Calmoseptine] 0.44-20.6 % Ointment 1 applic topical 599,2199 Qty: 0 0RF Protocol: *Topical Application Instructions APPLICATION INSTRUCTIONS: buttock Continued carbidopa-levodopa 25-250 mg tablet 1 tab PO TID memantine 10 mg tablet 10 mg PO BID donepezil 5 mg tablet 5 mg PO QHS entacapone 200 mg tablet 200 mg PO TID Discontinued furosemide 20 mg tablet 20 mg PO DAILY potassium chloride 20 mEq tablet extended release 20 meq PO DAILY losartan 50 mg tablet 50 mg PO DAILY omeprazole 20 mg capsule,delayed release(DR/EC) 20 mg PO DAILY Referrals / Follow Up: Lydia Gibbons, PHYSICAL THERAPY INSTRUCTOR-C [Primary Care Provider] - Disposition Disposition (needs filled in before D/C Order can be placed): [facility]
--- NOTE | 2024-04-30 11:21 | TREXTCAR_ITS ---
Diet Diet Order/Speech Therapy: 04/14/24 13:23 Diet: Cardiac - Heart Healthy Food consistency:: Easy to Chew Liquid Consistency:: Regular/Thin Is pt able to select menu?: Yes Diet Comments: Please send meals at 0830, 1230 and 1630. Routine Orders/Code Status Code Status: DNRCC-A (No intubation. ) Therapies Weight Bearing: Weight bearing as tolerated Extremity Affected:: Bilateral Lower Physical Therapy: Eval and Treat Occupational Therapy: Eval and Treat Speech Therapy: Eval and Treat Problem/Diagnosis (1) Debility: Status: Acute Code(s): R53.81 - Other malaise (2) Encephalopathy: Status: Acute Code(s): G93.40 - Encephalopathy, unspecified (3) Parkinson's disease dementia: Status: Acute Code(s): G20.A1 - Parkinson's disease without dyskinesia, without mention of fluctuations; F02.80 - Dementia in other diseases classified elsewhere, unspecified severity, without behavioral disturbance, psychotic disturbance, mood disturbance, and anxiety (4) Dementia with agitation: Status: Acute Code(s): F03.911 - Unspecified dementia, unspecified severity, with agitation (5) HTN (hypertension): Status: Chronic Code(s): I10 - Essential (primary) hypertension (6) Orthostatic hypotension: Status: Acute Code(s): I95.1 - Orthostatic hypotension (7) GERD (gastroesophageal reflux disease): Status: Acute Code(s): K21.9 - Gastro-esophageal reflux disease without esophagitis (8) Insomnia: Status: Acute Code(s): G47.00 - Insomnia, unspecified Plan 78 year old male with below past medical history hospitalized for encephalopathy, stroke ruled out, admitted to with debility, here for 3 hours daily rehabilitation, strengthening, prior to discharge. * Debility - PT/OT/ST. * Pain - Tylenol 650mg q6 prn. * Bowel - senna/colace tablets bid, Dulcolax 10mg pr x 1 prn, MOM 30ml daily prn. * DVT prophylaxis - Lovenox 40mg sc daily. * Parkinson Disease - Sinemet 25/250mg 1 tablet tidac, Comtan 200mg tid. * Parkinson Disease Dementia - Donepezil 5mg qhs, Memantine 10mg bid. * Dementia with agitation - Haldol 1mg im q6h prn. * Hypertension - Losartan 100mg daily, Hydralazine 10mg q4h prn elevated blood pressure. * Skin irritation - Calmoseptine topical bid. * Tinea Corporis - Nystatin powder topical bid. * GERD - Pantoprazole 20mg daily. * Insomnia - Trazodone 150mg qhs, lower Trazodone to 75mg qhs to see if he is more awake. Allergies/Procedures Done in Hospital Allergies quetiapine (From Seroquel) Adverse Reaction (Severe, Verified 04/23/24 10:24) agitation Procedures: None Type of Care/Length of Stay Estimated LOS: More Than 30 Days Type of Care Needed: Skilled Rehab Potential: Fair Prognosis: Fair Additional Orders/Day of Discharge Day of Discharge: 04/30/24 Dietary and Speech Recommendations Dietitian Recommendations/Changes: Continue cardiac/heart healthy diet with consistency/texture as per MARINA MANAGER, currently easy to chew foods and thin liquids. ONS if PO declines at meals, will defer for now. Will monitor weight and follow up with new weight when available. Further diet education as needed with and caregiver. Reviewed and approved by Freida Gilmore RD, LD Speech Linguistic Eval Summary: Orientation: Oriented to self (first/last name, ), current month, [facility] independently. Difficulty w/ age 49. Oriented to the month by stating It was just the of March. When given choice array of 2 for the year - able to orient to the year. Given 10+ min delay - unable to recall the year. Auditory Comprehension: Able to answer simple Y/N's (e.g. Do fire extinguishers help put out fires?) w/ 50% acc (5/10). Able to follow 1 step body commands (e.g. touch your nose, wiggle your fingers) w/ 100% acc (5/5). Verbal Expression: Confrontation Naming 50% in 4/8 opportunities. Pt.'s expressive deficits characterized by slow processing speed, anomia resulting in occ jargon, paraphasias, impaired confrontation, responsive and generative naming, limited information content in conversational speech and irrelevant commentary. Shoe - Shit/Shoe Pen - jargon, articulatory placement needed Chair - Cheek/Chair Trash Can - Mash then jargon Problem Solving: Tasked pt. w/ providing solution to problem What would you do if you saw a fire? I would give you a fan-ma Answers unreliable given expressive deficits. Memory: Immediate recall of 3 words 3/3 w/ noted paraphasias and jargon. 1 min delay - 1/3 words recalled. Noted pt. hallucinating during ST informal cognitive-linguistic evaluation. Patient presents w/ severe speech/language and cog communication impairment s/p CVA requires skilled MARINA MANAGER services to analyze communication abilities, assess auditory skills, improve ability to communicate self care / medical needs, improve verbal expression, improve language function in order to communicate basic wants / needs, communicate medical needs, improve expressive communication, improve functional communication ability, improve receptive communication skills, improve ability to follow sequences, increase overall speech intelligibility, participate in functional activities of choice, participate in meaningful interactions, perform functional tasks in order to return to [facility]. Discharge Plan Admission Admit Date/Time: 04/13/24 16:26 Primary Reason for Your Visit: Debility. Attending Provider: Jessica Allen Primary Care Provider: Lydia Gibbons Instructions Additional Instructions / Restrictions: Discharge to [facility], skilled, PT/OT/ST. Discharge Orders/Prescriptions Prescriptions: New hydralazine 10 mg Tablet 10 mg PO Q4H PRN (Reason: SYS>180 DIAST>90) Qty: 0 0RF acetaminophen 325 mg Tablet 650 mg PO Q6H PRN PRN (Reason: Pain Score 1-10) Qty: 0 0RF trazodone 50 mg Tablet 75 mg PO 1999 Qty: 0 0RF sennosides-docusate sodium [Stimulant Laxative Plus] 8.6-50 mg Tablet 2 tab PO BID Qty: 0 0RF pantoprazole 20 mg Tablet,Delayed Release (Dr/Ec) 20 mg PO DAILY Qty: 0 0RF nystatin [Nyamyc] 100,000 unit/gram Powder 1 applic topical 0600,2200 Qty: 0 0RF Protocol: *Topical Application Instructions APPLICATION INSTRUCTIONS: groin losartan 100 mg Tablet 100 mg PO DAILY Qty: 0 0RF enoxaparin 40 mg/0.4 mL Syringe 40 mg subcut DAILY@0600 Qty: 0 0RF menthol-zinc oxide [Calmoseptine] 0.44-20.6 % Ointment 1 applic topical 0600,2200 Qty: 0 0RF Protocol: *Topical Application Instructions APPLICATION INSTRUCTIONS: buttock Continued carbidopa-levodopa 25-250 mg tablet 1 tab PO TID memantine 10 mg tablet 10 mg PO BID donepezil 5 mg tablet 5 mg PO QHS entacapone 200 mg tablet 200 mg PO TID Discontinued furosemide 20 mg tablet 20 mg PO DAILY potassium chloride 20 mEq tablet extended release 20 meq PO DAILY losartan 50 mg tablet 50 mg PO DAILY omeprazole 20 mg capsule,delayed release(DR/EC) 20 mg PO DAILY Referrals / Follow Up: Lydia Gibbons [facility] [Primary Care Provider] - Disposition Disposition (needs filled in before D/C Order can be placed): [facility] ([facility]) HTN (hypertension) Qualifiers: Hypertension type: primary hypertension Qualified Code(s): I10 - Essential (primary) hypertension
[2024-04-30 14:11] VITALS: BP 103/59; PULSE 59; RESP 16; TEMP 36.1; O2SAT 95
[2024-04-30 14:12] VITALS: BMI 25.2
--- NOTE | 2024-04-30 14:13 | NURSING ---
discharged to [place] [facility]. Report called to Ann.
== END 2024-04-30 14:15 | disposition skilled nursing facility (03) | DRG 71 ==
PROVIDERS: Admitting Provider Internal Medicine; PCP Nurse Practitioner Family; Referring Provider Internal Medicine; Visit Provider Internal Medicine
DX: G93.40 Encephalopathy, unspecified (principal); F02.811 Dementia in other diseases classified elsewhere, unspecified severity, with agitation; F02.82 Dementia in other diseases classified elsewhere, unspecified severity, with psychotic disturbance; G20.A1 Parkinson's disease without dyskinesia, without mention of fluctuations; E78.5 Hyperlipidemia, unspecified; B35.4 Tinea corporis; G47.00 Insomnia, unspecified; I48.91 Unspecified atrial fibrillation; I10 Essential (primary) hypertension; I95.1 Orthostatic hypotension; I87.2 Venous insufficiency (chronic) (peripheral); G47.33 Obstructive sleep apnea (adult) (pediatric); K21.9 Gastro-esophageal reflux disease without esophagitis; Z79.899 Other long term (current) drug therapy; R32 Unspecified urinary incontinence; T17.900D Unspecified foreign body in respiratory tract, part unspecified causing asphyxiation, subsequent encounter; R47.89 Other speech disturbances; R26.9 Unspecified abnormalities of gait and mobility
CPT/HCPCS: 36415; 71045; 74230; 80048; 80053; 81001; 82274; 83735; 84100; 85014; 85018; 85025; 87811; 92507; 92523; 92526; 92610; 92611; 93005; 97110; 97116; 97129; 97130; 97162; 97166; 97530; 97535; 97542; 97802; J7030; J7040; A4216